=== PATIENT | female | born 1975 | race Caucasian/White ===

== ENCOUNTER 2017-02-27 17:50 | Emergency (ER) | payer OTHER ==
[~2017-02-27] VITALS: Ht 170.2 cm; Wt 61.2 kg
[~2017-02-27 17:50] MED LIST: ACETAMINOPHEN325 M1 PO; ALBUTEROL SULF8.5 GM INH; ALBUTEROL2.5 MG/0.5 INH; ALBUTEROL2.5 MG/3 M INH; ANUSOL-HC30 GM PR; ARIPIPRAZOL1 MG/1 ML PO; AZITHROMYCIN250 MG PO; BENADRYL A12.5 MG/5 PO; BENTYL20 MG PO; CARDURA1 MG PO; CHLORPROMAZINE10 MG PO; CIPROFLOXACIN500 MG PO; CLONAZEPAM1 MG PO; CLONAZEPAM2 MG PO; DILAUDID4 MG PO; DIPHENHYDRAMINE50 MG PO; DOXYCYCLINE MO100 MG PO; DULOXETINE HCL60 MG PO; ESCITALOPRA5 MG/5 ML PO; ESCITALOPRAM OX20 MG PO; FETZIMA80 MG; FLAGYL500 MG PO; FLOVENT DISKUS50 MCG INH; FLUCONAZOLE150 MG PO; FLUOXETINE20 MG/5 ML PO; GABAPENTIN100 MG PO; GUAIATUSSIN AC10 ML PO; GUAIFENESIN-CO118 ML PO; HYDROCODON-ACE1 EA11 PO; IBUPROFEN600 MG PO; IMODIUM MULTI-1 EACH PO; IPRAT-ALBUT 0.5-3 ML INH; KEFLEX500 MG PO; KETOPROFEN75 MG PO; LATUDA120 MG PO; LATUDA40 MG PO; LATUDA80 MG PO; LOPERAMIDE2 MG PO; MELOXICAM15 MG PO; METHOCARBAMOL500 MG PO; METRONIDAZOLE250 MG PO; MINIPRESS1 MG PO; MOBIC15 MG PO; MONISTAT 745 GM VAGINAL; NAPROXEN500 MG PO; NICOTINE PATCH1 EAC1 TD; NICOTINE PATCH1 EACH TD; NORCO 5-325 TA1 EACH PO; OMEPRAZOLE40 MG PO; OXYBUTYNIN CHLOR5 M1 PO; OXYCODON-ACETA1 EAC2 PO; OXYCODONE HCL5 MG PO; PENICILLIN V P500 MG; PENICILLIN V P500 MG PO; POTASSIUM CHLO10 MEQ PO; PRAZOSIN HCL5 MG PO; PREDNISONE20 MG PO; PROMETHAZI6.25 MG/5 PO; ROBAXIN500 MG PO; SEROQUEL100 MG PO; SUDAFED30 MG PO; TYLENOL EXTRA500 M1 PO; TYLENOL325 MG PO; VICODIN HP 10-1 EAC1 PO; XARELTO10 MG PO; ZITHROMAX250 MG PO; ZOFRAN4 MG PO
== END 2017-02-27 18:23 | disposition home or self-care (01) ==
LOC: ED 17:50
DX: S00.211A Abrasion of right eyelid and periocular area, initial encounter (principal); J45.909 Unspecified asthma, uncomplicated; K21.9 Gastro-esophageal reflux disease without esophagitis; F17.200 Nicotine dependence, unspecified, uncomplicated; J44.9 Chronic obstructive pulmonary disease, unspecified; Z86.14 Personal history of Methicillin resistant Staphylococcus aureus infection; Z90.710 Acquired absence of both cervix and uterus; Z98.890 Other specified postprocedural states; Z88.5 Allergy status to narcotic agent; Z79.899 Other long term (current) drug therapy; Z79.51 Long term (current) use of inhaled steroids; Z79.891 Long term (current) use of opiate analgesic; X58.XXXA Exposure to other specified factors, initial encounter
CPT/HCPCS: 99282

== ENCOUNTER 2017-03-24 12:24 | Emergency (ER) | payer OTHER ==
[~2017-03-24] VITALS: Ht 170.2 cm; Wt 59.0 kg
[2017-03-24] MEDS ORDERED: NAPROSYN500 MG PO (12:35)
[2017-03-24] MEDS ORDERED: OXYBUTYNIN CHLOR5 MG PO (12:35)
[2017-03-24] MEDS ORDERED: GABAPENTIN600 MG PO (12:36)
[2017-03-24] MEDS ORDERED: BACTRIM DS TAB1 EACH PO (12:48)
== END 2017-03-24 12:53 | disposition home or self-care (01) ==
LOC: ED 12:24
DX: L30.9 Dermatitis, unspecified (principal); J44.9 Chronic obstructive pulmonary disease, unspecified; F41.9 Anxiety disorder, unspecified; K21.9 Gastro-esophageal reflux disease without esophagitis; F17.200 Nicotine dependence, unspecified, uncomplicated; Z86.14 Personal history of Methicillin resistant Staphylococcus aureus infection; Z90.710 Acquired absence of both cervix and uterus; Z90.49 Acquired absence of other specified parts of digestive tract; Z88.5 Allergy status to narcotic agent; Z79.899 Other long term (current) drug therapy
CPT/HCPCS: 99283

== ENCOUNTER 2017-04-20 18:08 | Emergency (ER) | payer OTHER ==
[~2017-04-20] VITALS: Ht 170.2 cm; Wt 54.4 kg
[~2017-04-20 18:08] MED LIST changes: +BACTRIM DS TAB1 EACH PO; +GABAPENTIN600 MG PO; +NAPROSYN500 MG PO; +OXYBUTYNIN CHLOR5 MG PO
[2017-04-20] MEDS ORDERED: VENTOLIN HFA18 GM INH (18:20)
[2017-04-20] MEDS ORDERED: FLOVENT HFA12 G1 INH (18:20)
--- OUTSIDE RECORDS SUMMARY | 2017-04-20 18:31 | XMS | Clinical Summary ---
Demographics + + + | Address | [address] | | | [place] [address] | + + + | Home Phone | | + + + | Preferred Language | Unknown | + + + | Marital Status | Unknown | + + + | Jew Affiliation | Unknown | + + + | Race | Unknown | + + + | Ethnic Group | Unknown | + + + Author + + + | Author | [facility] | + + + | Organization | [facility] | + + + | Address | Unknown | + + + | Phone | Unavailable | + + + Care Team Providers + +------+ + | Care Hospital Aide Name | Role | Phone | + +------+ + PP | Unavailable | + +------+ + Source Comments MANOLO is fully live on both [facility] and [facility] InPatient.[facility] Allergies Not on File Current Medications Not on file Active Problems Not on file Social History + +-------+ +--------+------+ | Tobacco Use | Types | Packs/Day | Years | Date | | | | | Used | | + +-------+ +--------+------+ | Never Assessed | | | | | + +-------+ +--------+------+ + + + | Sex Assigned at | Date Recorded | | | | + + + | Not on file | | + + + Plan of Treatment + + + + + | Health Maintenance | Due Date | Last Done | Comments | + + + + + | INFLUENZA VACCINE | | | | | (FLU SHOT) | 7 | | | + + + + + Results Not on filefrom Last 3 Months"
[2017-04-20] MEDS ORDERED: DICLOFENAC SODI75 MG PO (18:52)
== END 2017-04-20 19:13 | disposition home or self-care (01) ==
LOC: ED 18:08
DX: M25.562 Pain in left knee (principal); J44.9 Chronic obstructive pulmonary disease, unspecified; F41.9 Anxiety disorder, unspecified; K21.9 Gastro-esophageal reflux disease without esophagitis; F17.200 Nicotine dependence, unspecified, uncomplicated; Z86.14 Personal history of Methicillin resistant Staphylococcus aureus infection; Z90.710 Acquired absence of both cervix and uterus; Z90.49 Acquired absence of other specified parts of digestive tract; Z88.5 Allergy status to narcotic agent; Z79.899 Other long term (current) drug therapy
CPT/HCPCS: 73560; 99283

== ENCOUNTER 2017-05-05 19:18 | Emergency (ER) | payer OTHER ==
[~2017-05-05] VITALS: Ht 175.3 cm; Wt 64.9 kg
--- OUTSIDE RECORDS SUMMARY | ~2017-05-05 | XMS | Clinical Summary ---
Demographics + + + | Address | [address] | | | [place] [address] | + + + | Home Phone | | + + + | Preferred Language | Unknown | + + + | Marital Status | Unknown | + + + | Baptist Affiliation | Unknown | + + + [...] Team Providers + +------+ + | Care Tuber Machine Operator Helper Name | Role | Phone | + +------+ + PP | Unavailable | + +------+ + Source Comments [facility] Allergies Not on File Current [...]
--- OUTSIDE RECORDS SUMMARY | ~2017-05-05 | XMS | Clinical Summary ---
Demographics + + + | Address | [address] | | | [place] [address] | + + + | Home Phone | | + + + | Preferred Language | Unknown | + + + | Marital Status | Unknown | + + + | Worship Affiliation | Unknown | + + + [...] Team Providers + +------+ + | Care Computer Technology Teacher Name | Role | Phone | + +------+ + PP | Unavailable | + +------+ + Source Comments [facility] In[facility] Allergies [...]
[~2017-05-05 19:18] MED LIST changes: +DICLOFENAC SODI75 MG PO; +FLOVENT HFA12 G1 INH; +VENTOLIN HFA18 GM INH
== END 2017-05-05 20:03 | disposition left against medical advice (07) ==
LOC: ED 19:18
DX: Z53.21 Procedure and treatment not carried out due to patient leaving prior to being seen by health care provider (principal)

== ENCOUNTER 2017-05-09 13:18 | Emergency (ER) | payer OTHER ==
[~2017-05-09] VITALS: Ht 175.3 cm; Wt 64.9 kg
[2017-05-09] MEDS ORDERED: LATUDA40 MG PO (13:28)
[2017-05-09] MEDS ORDERED: LEXAPRO10 MG PO (13:28)
[2017-05-09] MEDS ORDERED: VISTARIL50 MG PO (13:28)
== END 2017-05-09 13:37 | disposition home or self-care (01) ==
LOC: ED 13:18
DX: M54.5 Low back pain (principal); W19.XXXA Unspecified fall, initial encounter

== ENCOUNTER 2017-05-17 10:47 | Emergency (ER) | payer OTHER ==
[~2017-05-17] VITALS: Ht 175.3 cm; Wt 64.9 kg
[~2017-05-17 10:47] MED LIST changes: +LEXAPRO10 MG PO; +VISTARIL50 MG PO
[2017-05-17] MEDS ORDERED: NORCO 5-325 TA1 EACH PO (11:08)
[2017-05-17] MEDS ORDERED: AMOXICILLIN500 MG PO (11:08)
== END 2017-05-17 11:23 | disposition home or self-care (01) ==
LOC: ED 10:47
DX: K08.89 Other specified disorders of teeth and supporting structures (principal); J44.9 Chronic obstructive pulmonary disease, unspecified; F41.9 Anxiety disorder, unspecified; K21.9 Gastro-esophageal reflux disease without esophagitis; Z86.14 Personal history of Methicillin resistant Staphylococcus aureus infection; F17.200 Nicotine dependence, unspecified, uncomplicated; Z90.710 Acquired absence of both cervix and uterus; Z88.5 Allergy status to narcotic agent; Z79.899 Other long term (current) drug therapy
CPT/HCPCS: 99283

== ENCOUNTER 2017-05-25 21:11 | Emergency (ER) | payer OTHER ==
[~2017-05-25] VITALS: Ht 175.3 cm; Wt 64.9 kg
[~2017-05-25 21:11] MED LIST changes: +AMOXICILLIN500 MG PO
[2017-05-25] MEDS ORDERED: DITROPAN XL10 MG PO (21:28)
--- NOTE | 2017-05-28 08:04 | EKG ---
[facility] [address] [place] [address] Signed Normal sinus rhythm Possible Left atrial enlargement Borderline ECG No previous ECGs available Confirmed by ROBERT NIELSON MD ([id number]) on 05/28/2017 8:04:36 AM Electronically Signed By: ROBERT NIELSON MD 05/28/17 0804 PATIENT NAME: DALY SPICER Electrocardiogram DATE OF : 71 PHYSICIAN: ROBERT NIELSON MD REPORT #: [id number] REPORT IS CONFIDENTIAL AND NOT TO BE RELEASED WITHOUT AUTHORIZATION
== END 2017-05-26 01:58 | disposition home or self-care (01) ==
LOC: ED 21:11
DX: T43.592A Poisoning by other antipsychotics and neuroleptics, intentional self-harm, initial encounter (principal); Z90.710 Acquired absence of both cervix and uterus; F17.200 Nicotine dependence, unspecified, uncomplicated; Z88.5 Allergy status to narcotic agent
CPT/HCPCS: 36415; 80053; 80176; 81001; 84443; 84703; 85025; 93005; 93010; 96360; 96361; 99284; G0480; J7030

== ENCOUNTER 2017-07-06 17:44 | Emergency (ER) | payer OTHER ==
[~2017-07-06] VITALS: Ht 175.3 cm; Wt 64.9 kg
--- OUTSIDE RECORDS SUMMARY | ~2017-07-06 | XMS | Clinical Summary ---
Demographics + + + | Address | [address] | | | [place] [address] | + + + | Home Phone | | + + + | Preferred Language | Unknown | + + + | Marital Status | Unknown | + + + | Adventist Affiliation | Unknown | + + + | Race | Unknown | + + + | Ethnic Group | Unknown | + + + Author + + + | Author | [facility] | + + + | Organization | [facility] | + + + | Address | Unknown | + + + | Phone | Unavailable | + + + Care Team Providers + +------+ + | Care Safety Associate Name | Role | Phone | + +------+ + PP | Unavailable | + +------+ + Source Comments MANOLO is fully [facility] both [facility] and [facility] InPatient.[facility] Allergies Not on File Current Medications Not [...]
--- OUTSIDE RECORDS SUMMARY | ~2017-07-06 | XMS | Clinical Summary ---
Demographics + + + | Address | [address] | | | [place] [address] | + + + | Home Phone | | + + + | Preferred Language | Unknown | + + + | Marital Status | Unknown | + + + | Yazdanism Affiliation | Unknown | + + + [...] Team Providers + +------+ + | Care Stock Parts Fabricator Name | Role | Phone | + +------+ + PP | Unavailable | + +------+ + Source Comments [facility] and [facility] InPatient.[facility] Allergies Not on File Current [...]
[~2017-07-06 17:44] MED LIST changes: +DITROPAN XL10 MG PO
[2017-07-06] MEDS ORDERED: TRAZODONE HCL50 MG PO (17:56)
--- NOTE | 2017-07-07 21:22 | EKG ---
[facility] [address] [place] [address] Signed Normal sinus rhythm Nonspecific ST and T wave abnormality Abnormal ECG When compared with ECG of 25-MAY-2017 21:52, ST now depressed in Anterolateral leads T wave inversion now evident in Anterolateral leads Confirmed by ROBERT NIELSON MD ([id number]) on 07/07/2017 9:21:54 PM Electronically Signed By: ROBERT NIELSON MD 07/07/172121 PATIENT NAME: DALY SPICER Electrocardiogram DATE OF : 71 PHYSICIAN: ROBERT NIELSON MD REPORT #: [id number] REPORT IS CONFIDENTIAL AND NOT TO BE RELEASED WITHOUT AUTHORIZATION
[2017-10-30] MEDS ORDERED: CLONIDINE HCL0.1 MG PO (09:46)
[2017-10-30] MEDS ORDERED: PRAZOSIN HCL2 MG PO (09:47)
[2017-10-30] MEDS ORDERED: VITAMIN D250000 UNIT PO (09:48)
[2017-10-30] MEDS ORDERED: LAMICTAL25 MG PO (09:50)
[2017-10-30] MEDS ORDERED: DICLOFENAC SODI75 MG PO (09:50)
[2017-10-30] MEDS ORDERED: CHLORPROMAZINE50 MG PO (09:51)
[2017-10-30] MEDS ORDERED: CLONAZEPAM0.5 MG PO (09:52)
[2017-10-30] MEDS ORDERED: SUPER B COMPLE150 MG PO (09:53)
[2017-10-30] MEDS ORDERED: POTASSIUM99 M1 PO (09:53)
[2017-10-30] MEDS ORDERED: MULTIVITAMINS1 EAC8 PO (09:53)
[2017-10-30] MEDS ORDERED: FLOVENT DISKU100 MCG INH (10:11)
[2017-10-30] MEDS ORDERED: IPRAT-ALBUT 0.5-3 ML INH (10:24)
== END 2017-07-06 22:47 | disposition home or self-care (01) ==
LOC: ED 17:44
DX: T43.592A Poisoning by other antipsychotics and neuroleptics, intentional self-harm, initial encounter (principal); T43.212A Poisoning by selective serotonin and norepinephrine reuptake inhibitors, intentional self-harm, initial encounter; K21.9 Gastro-esophageal reflux disease without esophagitis; F41.9 Anxiety disorder, unspecified; J44.9 Chronic obstructive pulmonary disease, unspecified; F17.200 Nicotine dependence, unspecified, uncomplicated; Z90.710 Acquired absence of both cervix and uterus; Z98.890 Other specified postprocedural states; Z88.5 Allergy status to narcotic agent; Z79.899 Other long term (current) drug therapy
CPT/HCPCS: 80053; 80176; 81001; 83735; 84484; 85025; 93005; 93010; 96360; 96361; 99284; G0480; J7030

== ENCOUNTER 2017-08-22 23:46 | Emergency (ER) | payer OTHER ==
[~2017-08-22] VITALS: Ht 175.3 cm; Wt 72.6 kg
--- OUTSIDE RECORDS SUMMARY | ~2017-08-22 | XMS | Clinical Summary ---
Demographics + + + | Address | [address] | | | [place] [address] | + + + | Home Phone | | + + + | Preferred Language | Unknown | + + + | Marital Status | Unknown | + + + | Rastafari Affiliation | Unknown | + + + [...] Team Providers + +------+ + | Care Bath Tester Name | Role | Phone | + +------+ + PP | Unavailable | + +------+ + Source Comments [facility] InPatient.[facility] Allergies Not on File Current Medications [...]
--- OUTSIDE RECORDS SUMMARY | ~2017-08-22 | XMS | Clinical Summary ---
Demographics + + + | Address | [address] | | | [place] [address] | + + + | Home Phone | | + + + | Preferred Language | Unknown | + + + | Marital Status | Unknown | + + + | Anabaptism Affiliation | Unknown | + + + [...] Team Providers + +------+ + | Care Information Security Risk Analyst Name | Role | Phone | + +------+ + PP | Unavailable | + +------+ + Source Comments MANOL[facility] is [facility] both [facility] and [facility] InPatient.[facility] Allergies Not on File [...]
[~2017-08-22 23:46] MED LIST changes: +TRAZODONE HCL50 MG PO
[2017-08-23] MEDS ORDERED: TIZANIDINE HCL2 M1 PO (00:01)
[2017-10-30] MEDS ORDERED: CLONIDINE HCL0.1 MG PO (09:46)
[2017-10-30] MEDS ORDERED: PRAZOSIN HCL2 MG PO (09:47)
[2017-10-30] MEDS ORDERED: VITAMIN D250000 UNIT PO (09:48)
[2017-10-30] MEDS ORDERED: DICLOFENAC SODI75 MG PO (09:50)
[2017-10-30] MEDS ORDERED: LAMICTAL25 MG PO (09:50)
[2017-10-30] MEDS ORDERED: CHLORPROMAZINE50 MG PO (09:51)
[2017-10-30] MEDS ORDERED: CLONAZEPAM0.5 MG PO (09:52)
[2017-10-30] MEDS ORDERED: SUPER B COMPLE150 MG PO (09:53)
[2017-10-30] MEDS ORDERED: POTASSIUM99 M1 PO (09:53)
[2017-10-30] MEDS ORDERED: MULTIVITAMINS1 EAC8 PO (09:53)
[2017-10-30] MEDS ORDERED: FLOVENT DISKU100 MCG INH (10:11)
[2017-10-30] MEDS ORDERED: IPRAT-ALBUT 0.5-3 ML INH (10:24)
== END 2017-08-23 01:26 | disposition home or self-care (01) ==
LOC: ED 23:46
DX: S30.0XXA Contusion of lower back and pelvis, initial encounter (principal); S80.02XA Contusion of left knee, initial encounter; J44.9 Chronic obstructive pulmonary disease, unspecified; K21.9 Gastro-esophageal reflux disease without esophagitis; F41.9 Anxiety disorder, unspecified; Z86.14 Personal history of Methicillin resistant Staphylococcus aureus infection; Z88.5 Allergy status to narcotic agent; Z79.899 Other long term (current) drug therapy; Y04.2XXA Assault by strike against or bumped into by another person, initial encounter; Y92.009 Unspecified place in unspecified non-institutional (private) residence as the place of occurrence of the external cause
CPT/HCPCS: 72100; 73560; 81001; 99283

== ENCOUNTER 2017-09-26 09:30 | Emergency (ER) | payer OTHER ==
[~2017-09-26] VITALS: Ht 175.3 cm; Wt 72.6 kg
--- OUTSIDE RECORDS SUMMARY | ~2017-09-26 | XMS | Clinical Summary ---
Demographics + + + | Address | [address] | | | [place] [address] | + + + | Home Phone | | + + + | Preferred Language | Unknown | + + + | Marital Status | Unknown | + + + | Christian Affiliation | Unknown | + + + | Race | Unknown | + + + | Ethnic Group | Unknown | + + + Author + + + | Author | [facility] | + + + | Organization | [facility] | + + + | Address | Unknown | + + + | Phone | Unavailable | + + + Support + + +---------+ + | Name | Relationship | Address | Phone | + + +---------+ + | James Rodas | ECON | Unknown | | + + +---------+ + | Talisha Miranda | ECON | Unknown | | + + +---------+ + Care Team Providers + +------+ + | Care Epidemiology Intern Name | Role | Phone | + +------+ + | Juan Lucero MD | PP | Unavailable | + +------+ + Allergies + + + + + + | Active Allergy | Reactions | Severity | Noted | Comments | | | | | Date | | + + + + + + | Morphine | Anaphylaxis | High | 08/23/19 | | | | | | 16 | | + + + + + + | Tramadol | Hives | High | 08/23/19 | | | | | | 16 | | + + + + + + Current Medications + + +-------+---------+------+------+-------+ | Prescription | Sig. | Disp. | Refills | Star | End | Statu | | | | | | t | Date | s | | | | | | Date | | | + + +-------+---------+------+------+-------+ | albuterol | Inhale 2 puffs into | | | | | Activ | | (PROVENTIL | the lungs every 4 | | | | | e | | HFA;VENTOLIN HFA) | (four) hours as | | | | | | | 108 (90 BASE) | needed for Wheezing. | | | | | | | MCG/ACT inhaler | | | | | | | + + +-------+---------+------+------+-------+ | Fluticasone | Inhale 1 puff into | | | | | Activ | | Propionate, Inhal, | the lungs 2 (two) | | | | | e | | 100 MCG/BLIST AEPB | times daily. | | | | | | + + +-------+---------+------+------+-------+ | ARIPiprazole | Take 10 mg by mouth | | | | | Activ | | (ABILIFY) 10 MG | nightly. | | | | | e | | tablet | | | | | | | + + +-------+---------+------+------+-------+ | clonazePAM | Take 2 mg by mouth 3 | | | | | Activ | | (KLONOPIN) 2 MG | (three) times daily | | | | | e | | tablet | as needed for | | | | | | | | Anxiety. | | | | | | + + +-------+---------+------+------+-------+ | escitalopram | Take 20 mg by mouth | | | | | Activ | | (LEXAPRO) 20 MG | every evening. | | | | | e | | tablet | | | | | | | + + +-------+---------+------+------+-------+ | omeprazole | Take 40 mg by mouth | | | | | Activ | | (PRILOSEC) 40 MG | every morning before | | | | | e | | capsule | breakfast. | | | | | | + + +-------+---------+------+------+-------+ | methocarbamol | Take 500 mg by mouth | | | | | Activ | | (ROBAXIN) 500 MG | nightly. | | | | | e | | tablet | | | | | | | + + +-------+---------+------+------+-------+ | meloxicam (MOBIC) | Take 15 mg by mouth | | | | | Activ | | 15 MG tablet | daily. | | | | | e | + + +-------+---------+------+------+-------+ | prazosin | Take 5 mg by mouth | | | | | Activ | | (MINIPRESS) 5 MG | nightly. | | | | | e | | capsule | | | | | | | + + +-------+---------+------+------+-------+ | prazosin | Take 2 mg by mouth | | | | | Activ | | (MINIPRESS) 2 MG | nightly. | | | | | e | | capsule | | | | | | | + + +-------+---------+------+------+-------+ | potassium chloride | Take 10 mEq by mouth | | | | | Activ | | (K-DUR) 10 MEQ | daily. | | | | | e | | tablet | | | | | | | + + +-------+---------+------+------+-------+ | oxybutynin | Take 5 mg by mouth | | | | | Activ | | (DITROPAN-XL) 5 MG | every evening. | | | | | e | | 24 hr tablet | | | | | | | + + +-------+---------+------+------+-------+ | | Take 1 tablet by | | | | | Activ | | HYDROcodone-acetamin | mouth every 6 (six) | | | | | e | | ophen (NORCO) | hours as needed for | | | | | | | 7.5-325 MG per | Pain. | | | | | | | tablet | | | | | | | + + +-------+---------+------+------+-------+ Active Problems + + + | Problem | Noted Date | + + + | Precordial pain | 08/23/2015 | + + + + + | Last Assessment & Plan: Chest pain. 40yo WF, with | | chest discomfort, worsening over last several months. She states | | that she has just chest pain "most of that day and night", any | | type of activity including breathing increases her symptoms. She | | has chronic shortness of breath, she blames this on her asthma, | | COPD, smoking, but this also is worse with physical activity. | | She states that she wakes up quite diaphoretic, her heart | | pounding. Despite this, there is been no syncope. She has no | | prior history of coronary artery disease, myocardial infarction, | | congestive heart failure, congenital heart disease, rheumatic | | heart disease, or syncope. There is no history of diabetes, | | hypertension, or hyperlipidemia. No history of TIAs or strokes. | | She is unsure about her family history. Recently, abdominal | | surgeries. And unfortunately, she still smokes. A recent | | nuclear perfusion study is benign. Patient reassured that she | | does not have significant obstructive coronary disease. Smoking | | cessation strongly encouraged.Last Cath: naLast Echo: naLast | | Stress Test, 09/14/2015 ([facility]): Adenosine, images benign, | | LVEF 64%.ECG, 07/15/2015: NSR, 71bpm.Lab, 07/15/2015: Trop-T: | | <0.010, Liver enzymes NML, K: 4.0, BUN/Cr: 25/0.8, glu: 109 | | (non-fasting) WBC: 9.5, H/H: 12.9/37.5, | | plt: 279Lab, 08/30/2015: T Chol: 200, LDL-Chol: 108, HDL-Chol: 53, | | Tri | + + Family History + + +------+ + | Medical History | Relation | Name | Comments | + + +------+ + | High cholesterol | Father | | | + + +------+ + | Hypertension | Father | | | + + +------+ + + +------+ + + | Relation | Name | Status | Comments | + +------+ + + | Father | | Alive | HTN,Hyperlipidemia | + +------+ + + | Maternal Grandfather | | | accident | + +------+ + + | Maternal Grandmother | | Alive | unknown status | + +------+ + + | Mother | | Alive | healthy | + +------+ + + Social History + + + +--------+ + | Tobacco Use | Types | Packs/Day | Years | Date | | | | | Used | | + + + +--------+ + | Current Every Day | Cigarettes | 1 | | Started: 06/16/1985 | | Smoker | | | | | + + + +--------+ + + +------+---+---+ | Smokeless Tobacco: | Chew | | | | Former User | | | | + +------+---+---+ + + | Comments: 6 months | + + + + +---------+ + | Alcohol Use | Drinks/We | oz/Week | Comments | | | ek | | | + + +---------+ + | Yes | 0 | 0.0 | rarely jrey | | | Standard | | | | | drinks or | | | | | | | | | | equivalen | | | | | t | | | + + +---------+ + + + + | Sex Assigned at | Date Recorded | | | | + + + | Not on file | | + + + Last Filed Vital Signs + + + + | Vital Sign | Reading | Time Taken | + + + + | Blood Pressure | 92/60 | 09/25/2015 11:13 AM PDT | + + + + | Pulse | 62 | 09/25/2015 11:13 AM PDT | + + + + | Temperature | - | - | + + + + | Respiratory Rate | 17 | 09/25/2015 11:13 AM PDT | + + + + | Oxygen Saturation | 96% | 09/25/2015 11:13 AM PDT | + + + + | Inhaled Oxygen | - | - | | Concentration | | | + + + + | Weight | 77.2 kg (170 lb 1.6 | 09/25/2015 11:13 AM PDT | | | oz) | | + + + + | Height | 170.2 cm (5' 7") | 09/25/2015 11:13 AM PDT | + + + + | Body Mass Index | 26.64 | 09/25/2015 11:13 AM PDT | + + + + Plan of Treatment +--------+---------+ + + + | Date | Type | Specialty | Care Team | Description | +--------+---------+ + + + | 01/06/ | Office | | Charles Maradiaga, | | | 2017 | Visit | | MD [address] | | | | | | [place], | | | | | | [place] [address] | | | | | | [phone] | | | | | | | | +--------+---------+ + + + + + + + + | Health Maintenance | Due Date | Last Done | Comments | + + + + + | Vaccine: | | | | | Dtap/Tdap/Td (1 - | 2 | | | | Tdap) | | | | + + + + + | Vaccine: | | | | | Pneumococcal 19-64 | 2 | | | | (PPSV23 only) Medium | | | | | Risk (1 of 1 - | | | | | PPSV23) | | | | + + + + + | Cervical Cancer | | | | | Screening (Pap) | 4 | | | + + + + + | Vaccine: Influenza | | | | | (Season Ended) | 8 | | | + + + + + Results Not on filefrom Last 3 Months Insurance + +--------+ +------+-------+ + | Payer | Benefi | Subscriber | Type | Phone | Address | | | t Plan | ID | | | | | | / | | | | | | | Group | | | | | + +--------+ +------+-------+ + | MEDICAID | KUSHER | xxxxxxxx | | | [address] | | | N | | | | [place] | | | [place] | | | | [phone] | | | FIELD STAFF MANAGER | | | | | + +--------+ +------+-------+ + + +--------+ +--------+ + + | Guarantor Name | Accoun | Relation to | Date | Phone | Billing Address | | | t Type | Patient | of | | | | | | | | | | + +--------+ +--------+ + + | DALY SPICER | Person | Self | [birth year] | Home: | [address] | | | al/Fam | | 1975 | [phone] | [place] [address] | | | erik | | | [phone] | | + +--------+ +--------+ + +
--- OUTSIDE RECORDS SUMMARY | ~2017-09-26 | XMS | Clinical Summary ---
Demographics + + + | Address | [address] | | | [place] [address] | + + + | Home Phone | | + + + | Preferred Language | Unknown | + + + | Marital Status | Unknown | + + + | Protestant Affiliation | Unknown | + + + [...] Team Providers + +------+ + | Care Rawhide Trimmer Name | Role | Phone | + +------+ + PP | Unavailable | + +------+ + Source Comments MANOLO is fully [facility] both [facility] and [facility] InPatient.[facility]placed By [facility] Allergies Not on File Current Medications Not [...] | | | | (FLU SHOT) | 8 | | | + + + + + Results Not on filefrom Last 3 Months"
--- OUTSIDE RECORDS SUMMARY | ~2017-09-26 | XMS | Clinical Summary ---
Demographics + + + | Address | [address] | | | [place] [address] | + + + | Home Phone | | + + + | Preferred Language | Unknown | + + + | Marital Status | Unknown | + + + | Nondenominational Affiliation | Unknown | + + + | Race | Unknown | + + + | Ethnic Group | Unknown | + + + Author + + + | Author | [facility] | + + + | Organization | [facility] | + + + | Address [...] Team Providers + +------+ + | Care Carpenter Supervisor Wooden Ship Name | Role | Phone | + [...] | | | | | | [place] [address] | | | | | | [phone] | | | | | | | [...] | | [place] | | | | [phone] | | | CUSTOMER SUPPORT AGENT | | | | | + +--------+ [...] Self | [birth year] | Home: | [address] | | | al/Fam | | 1975 | [phone] | [place] [address] | | | erik | | | [phone] | | + +--------+ +--------+ + +
--- OUTSIDE RECORDS SUMMARY | ~2017-09-26 | XMS | Clinical Summary ---
Demographics + + + | Address | [address] | | | [address] | | | [place] [address] | + + + | Home Phone | | + + + | Preferred Language | Unknown | + + + | Marital Status | | + + + | Scientology Affiliation | 1013 | + + + | Race | Unknown | + + + | Ethnic Group | Unknown | + + + Author + + + | Author | [facility] | | | and [place] | + + + | Organization | [facility] | | | and [place] | + + + | Address | Unknown | + + + | Phone | Unavailable | + + + Support + + + + + | Name | Relationship | Address | Phone | + + + + + | Codi Guajardo | ECON | [address] | | | | | [address] [facility] | | | | | [address] | | + + + + + Care Team Providers + +------+ + | Care Special Education Tutor Name | Role | Phone | + +------+ + PP | Unavailable | + +------+ + Allergies + + + +--------+ + | Active Allergy | Reactions | Severity | Noted | Comments | | | | | Date | | + + + +--------+ + | Hydrocodone | | | | | + + + +--------+ + | Morphine Sulfate | | | | | + + + +--------+ + | Tramadol | | | | | + + [...] puffs two | | | 02/14 | | Activ | | (FLOVENT HFA) 110 | times a day | | | 09/02 | | e | | mcg/puff inhaler | | | | 12 | | | + + +-------+---------+------+------+-------+ | omeprazole | Take 20 mg by mouth | | | 02/14 | | Activ | | (PRILOSEC) 20 mg | Daily. | | | 09/02 | | e | | capsule | | | | 12 | | | + + +-------+---------+------+------+-------+ | cyclobenzaprine | Take 10 mg by mouth | | | 02/14 | | Activ | | (FLEXERIL) 10 mg | nightly. | | | 09/02 | | e | | tablet | | | | 12 | | | + + +-------+---------+------+------+-------+ | naproxen | Take 500 mg by mouth | | | 02/14 | | Activ | | (NAPROSYN) 500 mg | 2 times daily. | | | 09/02 | | e | | tablet | | | | 12 | | | + + +-------+---------+------+------+-------+ | GABAPENTIN PO | TABS 800 mg 1 tablet | | | 02/14 | | Activ | | | by mouth three | | | 09/02 | | e | | | daily | | | 12 | | | + + +-------+---------+------+------+-------+ | buPROPion | 1 tablet by mouth in | | | 09/1 | | Activ | | (WELLBUTRIN XL) 300 | the AM and 150 mg | | | 3/20 | | e | | mg 24 hr tablet | in the PM | | | 12 | | | + + +-------+---------+------+------+-------+ | ziprasidone | 2 tablets by mouth | | | 09 | | Activ | | (GEODON) 60 MG | at bedtime | | | 3/20 | | e | | capsule | | | | 12 | | | + + +-------+---------+------+------+-------+ | CLONAZEPAM PO | TABS 2 tablets at | | | 09/1 | | Activ | | | bedtime and up to 2 | | | 3/20 | | e | | | tablets daily as | | | 12 | | | | | needed | | | | | | + + +-------+---------+------+------+-------+ | clonidine | Take 0.2 mg by mouth | | | 09/1 | | Activ | | (CATAPRES) 0.2 MG | nightly. | | | 3/20 | | e | | tablet | | | | 12 | | | [...] | | | + + +-------+---------+------+------+-------+ | Propoxyphene | TABS as needed for | | | 09/2 | | Activ | | N-Acetaminophen | pain | | | 02/02 | | e | | (DARVOCET-N 100 PO) | | | | 10 | | | + + +-------+---------+------+------+-------+ | PARoxetine (PAXIL) | Take 20 mg by mouth | | | 04/16 | | Activ | | 20 mg tablet | 2 times daily. | | | 12/03 | | e | | | | | | 10 | | | + + +-------+---------+------+------+-------+ Active Problems + + + | Problem | Noted Date | + + + | CHEST PAIN, PLEURITIC | | + + + | ASTHMA, EXTRINSIC | | + + + | ABNORMAL CHEST XRAY | | + + + | DYSPNEA ON EXERTION | | + + + | ACUTE KIDNEY FAILURE UNSPECIFIED | | + + + + + | Overview: ICD-10 Record update | + + Social History + +-------+ +--------+------+ [...] + + + | Blood Pressure | 105/60 | 05/15/2011 0000 PST | + + + + | Pulse | - | - | + + + + | Temperature | - | - | + + + + | Respiratory Rate | - | - | + + + + | Oxygen Saturation | - | - | + + + + | Inhaled Oxygen | - | - | | Concentration | | | + + + + | Weight | 83.5 kg (184 lb) | 05/15/2011 0000 PST | + + + + | Height | 170.2 cm (5' 7") | 05/15/2011 0000 PST | + + + + | Body Mass Index | 28.82 | 05/15/2011 0000 PST | + + + + Plan of [...] 19-64 | 2 | | | | Highest Risk (1 of 3 | | | | | - PCV13) | | | | + + + + + | CERVICAL CANCER | | | | | SCREENING (PAP EVERY | 4 | | | | 3 YEARS 21-64 ) | | | | + + + + + | Vaccine: Influenza | | | | | (Season Ended) | 8 | | | + + + + + Results Not on filefrom Last 3 Months
--- OUTSIDE RECORDS SUMMARY | ~2017-09-26 | XMS | Clinical Summary ---
Demographics + + + | Address | [address] | | | [address] | | | [place] [address] | + + + | Home Phone | | + + + | Preferred Language | Unknown | + + + | Marital Status | | + + + | Evangelical Affiliation | 1013 | + + + | Race | Unknown | + + + | Ethnic Group | Unknown | + + + Author + + + | Author | [facility] | | | and [place] | + + + | Organization | [facility] | | | and [place] | + + + | Address | Unknown | + + + | Phone | Unavailable | + + + Support + + + + + | Name | Relationship | Address | Phone | + + + + + | Codi Guajardo | ECON | [address] | | | | | [address] [facility] | | | | | [address] | | + + + + + Care Team Providers + +------+ + | Care Liquefier Name | Role | Phone | + [...]
--- OUTSIDE RECORDS SUMMARY | ~2017-09-26 | XMS | Clinical Summary ---
Demographics + + + | Address | [address] | | | [place] [address] | + + + | Home Phone | | + + + | Preferred Language | Unknown | + + + | Marital Status | Unknown | + + + | Latter-Day Affiliation | Unknown | + + + [...] Team Providers + +------+ + | Care Thread Drawer Name | Role | Phone | + +------+ + PP | Unavailable | + +------+ + Source Comments [facility] InPatient.[facility] Allergies Not on File Current Medications Not [...]
[~2017-09-26 09:30] MED LIST changes: +TIZANIDINE HCL2 M1 PO
[2017-09-26] MEDS ORDERED: DEPAKOTE500 MG PO (10:26)
[2017-09-26] MEDS ORDERED: ANUSOL-HC25 MG PR (10:35)
[2017-10-30] MEDS ORDERED: CLONIDINE HCL0.1 MG PO (09:46)
[2017-10-30] MEDS ORDERED: PRAZOSIN HCL2 MG PO (09:47)
[2017-10-30] MEDS ORDERED: VITAMIN D250000 UNIT PO (09:48)
[2017-10-30] MEDS ORDERED: LAMICTAL25 MG PO (09:50)
[2017-10-30] MEDS ORDERED: DICLOFENAC SODI75 MG PO (09:50)
[2017-10-30] MEDS ORDERED: CHLORPROMAZINE50 MG PO (09:51)
[2017-10-30] MEDS ORDERED: CLONAZEPAM0.5 MG PO (09:52)
[2017-10-30] MEDS ORDERED: POTASSIUM99 M1 PO (09:53)
[2017-10-30] MEDS ORDERED: MULTIVITAMINS1 EAC8 PO (09:53)
[2017-10-30] MEDS ORDERED: SUPER B COMPLE150 MG PO (09:53)
[2017-10-30] MEDS ORDERED: FLOVENT DISKU100 MCG INH (10:11)
[2017-10-30] MEDS ORDERED: IPRAT-ALBUT 0.5-3 ML INH (10:24)
== END 2017-09-26 11:06 | disposition home or self-care (01) ==
LOC: ED 09:30
DX: K64.9 Unspecified hemorrhoids (principal); K21.9 Gastro-esophageal reflux disease without esophagitis; F41.9 Anxiety disorder, unspecified; Z88.5 Allergy status to narcotic agent; Z79.899 Other long term (current) drug therapy
CPT/HCPCS: 36415; 85025; 99283

== ENCOUNTER 2017-11-05 06:30 | Day surgery (SDC) | payer OTHER ==
[~2017-11-05] VITALS: Ht 175.3 cm; Wt 78.0 kg
[~2017-11-05 06:30] MED LIST changes: +ANUSOL-HC25 MG PR; +CHLORPROMAZINE50 MG PO; +CLONAZEPAM0.5 MG PO; +CLONIDINE HCL0.1 MG PO; +DEPAKOTE500 MG PO; +FLOVENT DISKU100 MCG INH; +LAMICTAL25 MG PO; +MULTIVITAMINS1 EAC8 PO; +POTASSIUM99 M1 PO; +PRAZOSIN HCL2 MG PO; +SUPER B COMPLE150 MG PO; +VITAMIN D250000 UNIT PO
--- NOTE | 2017-11-05 09:44 | NUR ---
11/05/17 0944 Steffanie Mc 0936 PT ARRIVED IN PACU WIDE AWAKE TALKING TO STAFF. ABD SOFT.
--- NOTE | 2017-11-05 10:36 | NUR ---
PT RATHER ANXIOUS REGARDING THE SCOPE SCHEDULED FOR TODAY. FIRST SCOPE FOR PT, WORKED TO HELP HER RELAX-KNOWING WHAT TO EXPECT. SHE SEEMED TO CALM SOME, PT REQUESTED PRAYER. WILL FOLLOW NEEDED
--- NOTE | 2017-11-05 16:43 | OR ---
[facility] [address], [place] [address] Signed DATE OF OPERATION: 11/05/2017 SURGEON: Hunter Maldonado MD PREOPERATIVE DIAGNOSES: 1. Rectal bleeding. 2. External anal hemorrhoid in the anterior midline. POSTOPERATIVE DIAGNOSIS: Small anterior midline external hemorrhoid. PROCEDURE: Colonoscopy without biopsy. ESTIMATED BLOOD LOSS: None. INDICATIONS: Daly is a 42-year-old female who was having trouble with some rectal bleeding and an external hemorrhoid in the anterior midline. Her primary care provider asked her to see me with respect to the above. She gives no family history of colon cancer or polyps or inflammatory bowel disease. She said the rectal bleeding has stopped. I had given her a pamphlet in the office on colonoscopy. We looked at that together along with the risks including, but not limited to gas bloating, crampy abdominal pain, bleeding, perforation requiring surgery and missed diagnosis. We also discussed the need for IV conscious sedation. Daly requires daily, clonazepam as well as hydrocodone and Seroquel. We had to use an anesthesia provider previously when we did her upper endoscopy. Consequently, we decided to have an anesthesia provider available to us again on this occasion for infusion of propofol as well as airway control. She had expressed understanding and wished to proceed. PROCEDURE NOTE: Daly was taken into our endoscopy suite and placed in the left lateral decubitus position. She was given IV propofol per our nurse health and wellness sales consultant. In fact, Daly took quite a bit of propofol. Once she was fully sedated, a digital rectal exam was performed. It looked like she had some scar tissue around the anus, although I do not specifically recall her having any hemorrhoid surgery. She does have a small anterior midline external hemorrhoid. Again, the sphincter tone is moderate. After this, the adult colonoscope was introduced and advanced all around into the cecum under direct visualization of camera with some difficulty. We had used some abdominal compression Electronically Signed By: HUNTER MALDONADO MD 11/05/17 1643 PATIENT NAME: DALY SPICER OPERATIVE REPORT DATE OF : 71 REPORT #: [id number] PHYSICIAN: HUNTER MALDONADO MD PCP: MAE SILVA REPORT IS CONFIDENTIAL AND NOT TO BE RELEASED WITHOUT AUTHORIZATION [facility] [address], [place] [address] Signed and an extra propofol in order to get the scope to advance. Her prep was a little less than moderate. Many areas I was able to suction out, but there was still particulate stool matter and areas that I could not get through the scope. The scope was then slowly withdrawn. We saw no pathology throughout the entire colon or rectum. Upon retroflexion of the scope, there was no additional pathology noted above the anal canal. After this, the gas was suctioned out. The colonoscope removed. Daly tolerated the procedure quite well. RECOMMENDATIONS: Daly can follow up in 10 years for repeat colonoscopy. If she continues to have rectal bleeding, we could always talk more about her hemorrhoids, although with her moderate sphincter tone, she needs to be very careful with any hemorrhoid surgery. Hunter Maldonado MD ALB/MODL /[id number] cc: DB Kim MD Copies: MAE SILVA ANDREW L MD ~ Electronically Signed By: HUNTER MALDONADO MD 11/05/17 1643 PATIENT NAME: DALY SPICER OPERATIVE REPORT DATE OF : 71 REPORT #: [id number] PHYSICIAN: HUNTER MALDONADO MD PCP: MAE SILVA REPORT IS CONFIDENTIAL AND NOT TO BE RELEASED WITHOUT AUTHORIZATION
== END 2017-11-05 10:01 | disposition home or self-care (01) ==
LOC: OPS 06:30 → DS 06:30 → OPS 08:00
PROVIDERS: Colon & Rectal Surgery
PROC: 0DJD8ZZ Inspection of Lower Intestinal Tract, Via Natural or Artificial Opening Endoscopic (ICD-10-PCS; principal; 2017-11-05 08:00)
DX: K64.4 Residual hemorrhoidal skin tags (principal); I25.10 Atherosclerotic heart disease of native coronary artery without angina pectoris; J44.9 Chronic obstructive pulmonary disease, unspecified; K21.9 Gastro-esophageal reflux disease without esophagitis; K44.9 Diaphragmatic hernia without obstruction or gangrene; M17.12 Unilateral primary osteoarthritis, left knee; M19.041 Primary osteoarthritis, right hand; M19.042 Primary osteoarthritis, left hand; F32.9 Major depressive disorder, single episode, unspecified; J32.9 Chronic sinusitis, unspecified; F17.210 Nicotine dependence, cigarettes, uncomplicated; F43.10 Post-traumatic stress disorder, unspecified; Z88.5 Allergy status to narcotic agent; Z88.8 Allergy status to other drugs, medicaments and biological substances; Z79.1 Long term (current) use of non-steroidal anti-inflammatories (NSAID); Z79.899 Other long term (current) drug therapy; Z79.51 Long term (current) use of inhaled steroids
CPT/HCPCS: J2704; J7120

== ENCOUNTER 2018-08-29 10:53 | Emergency (ER) | payer OTHER ==
[~2018-08-29] VITALS: Ht 175.3 cm; Wt 82.5 kg
--- OUTSIDE RECORDS SUMMARY | ~2018-08-29 | XMS | Clinical Summary ---
Demographics + + + | Address | [address] | | | [place] [address] | + + + | Home Phone | | + + + | Preferred Language | Unknown | + + + | Marital Status | Unknown | + + + | Yarsani Affiliation | Unknown | + + + | Race | Unknown | + + + | Ethnic Group | Unknown | + + + Author + + + | Author | [facility] [employer] [facility] | + + + | Organization | [facility] [employer] [facility] | + + + | Address [...] Team Providers + +------+ + | Care Die Storage Worker Name | Role | Phone | + +------+ + | [facility] [place] [facility] | PP | | | Care [...] | 03/05 | | e | | [id number] units capsule | | | | 18 [...] Vaccine: Influenza | | | | | (#1) | 8 | | | + + [...] +------+-------+ + | MEDICAID | [place] | [id number] | | | [address] | | | N | | | | [place], [place] | | | [place] | | | | [address] | | | PARCEL CARRIER | | | | | + +--------+ [...] | 1975 | [phone] | [place] [address] | | | erik | | | [phone] | | + +--------+ +--------+ + +
--- OUTSIDE RECORDS SUMMARY | ~2018-08-29 | XMS | Encounter Summary ---
Demographics + + + | Address | [address] | | | [place] [address] | + + + | Home Phone | | + + + | Preferred Language | Unknown | + + + | Marital Status | Unknown | + + + | Orthodoxy Affiliation | 1013 | + + + | Race | Unknown | + + + | Ethnic Group | Unknown | + + + Author + + + | Author | [facility] | | | and [place] | + + + | Organization | [facility] | | | and [place] | + + + | Address | Unknown | + + + | Phone | Unavailable | + + + Support + + + + + | Name | Relationship | Address | Phone | + + + + + | Codi Guajardo | ECON | [address] | | | | | [address] | | | | | [address] | | + + + + + Care Team Providers + +------+ + | Care Infrastructure Manager Name | Role | Phone | + +------+ + | Son Salamanca | PCP | | + +------+ + Reason for Visit + + + | Reason | Comments | + + + | Follow-up | | + + + | Diarrhea | | + + + | LABS | | + + + Evaluate & Treat (Routine) + +--------+ + + + + | Status | Reason | Specialty | Diagnoses / | Referred By | Referred To | | | | | Procedures | Contact | Contact | + +--------+ + + + + | Authorized | | Gastroenterol | Diagnoses | Cheikh, | Rhona, | | | | ogy | Full | DB Cline | Noam Conner, | | | | | incontinence | [address] | MD [address] | | | | | of feces [address] | [address] | | | | | weeks | [address] | [place], | | | | | follow up/ | [place], | [place] [address] | | | | | Full | [place] [address] | Phone: | | | | | incontinence | Phone: | [phone] | | | | | of feces | [phone] | Fax: | | | | | Other | Fax: | [phone] | | | | | specified | [phone] | | | | | | diseases of | | | | | | | anus and | | | | | | | rectum/self/ | | | | | | | Moda/Cheikh | | | | | | | / Patient | | | | | | | will get | | | | | | | updated | | | | | | | referral | | | | | | | since it | | | | | | | on | | | | | | | 08/26 | | | | | | | Procedures | | | | | | | OFFICE VISIT | | | | | | | REGULAR | | | + +--------+ + + + + Encounter Details +--------+---------+ + + + | Date | Type | Department | Care Team | Description | +--------+---------+ + + + | 08/27/ | Office | [facility] | Noam Melgoza | Full incontinence of | | 2019 | Visit | GASTROENTEROLOGY | MD [address] | feces (Primary Dx); | | | | [address] [place] | [address] [place] | Lactose | | | | [address], [place] | [place] [address] | intolerance; | | | | [address] | [phone] | Diarrhea, | | | | [phone] | | unspecified type; | | | | | | Constipation, | | | | | | unspecified | | | | | | constipation type | +--------+---------+ + + + Social History + +-------+ +--------+ + | Tobacco Use | Types | Packs/Day | Years | Date | | | | | Used | | + +-------+ +--------+ + | Current Every Day | | 1 | 32 | Started: 1985 | | Smoker | | | | | + +-------+ +--------+ + + +---+---+---+ | Smokeless Tobacco: | | | | | Never Used | | | | + +---+---+---+ + + | Comments: Down to 3/4 PPD. Is slowly tapering down. | + + + + +---------+ + | Alcohol Use | Drinks/We | oz/Week | Comments | | | ek | | | + + +---------+ + | Yes | 18 Cans | 10.8 | 2-3 times per week. 6 pack per time | | | of beer | | | + + +---------+ + + + + | Sex Assigned at | Date Recorded | | | | + + + | Not on file | | + + + as of this encounter Last Filed Vital Signs + + + + | Vital Sign | Reading | Time Taken | + + + + | Blood Pressure | 82/62 | 08/27/2018 1448 PDT | + + + + | Pulse | 64 | 08/27/20181447 PDT | + + + + | Temperature | 37.3 C (99.1 F) | 08/27/20181447 PDT | + + + + | Respiratory Rate | 14 | 08/27/20181447 PDT | + + + + | Oxygen Saturation | 99% | 08/27/20181447 PDT | + + + + | Inhaled Oxygen | - | - | | Concentration | | | + + + + | Weight | 84.3 kg (185 lb 13.6 | 08/27/20181447 PDT | | | oz) | | + + + + | Height | 175.3 cm (5' 9") | 08/27/2018 1448 PDT | + + + + | Body Mass Index | 27.44 | 08/27/2018 1448 PDT | + + + + in this encounter Progress Notes Noam Melgoza MD - 08/27/2018 1500 PDTFormatting of this note may be different from the original. Gastroenterology Clinic Progress Note Date of Office Visit: 08/27/18 Primary Care Physician: DB Marcano Chief Complaint Follow-up; Diarrhea; and LABS History of Present Illness Serenity Demarco is a 43 y.o. female who returns to the clinic for diarrhea with fecal i ncontinence. Interval history: Has cut out dairy. Notes that she now has constipation for 3 days, then will have blow out diarrhea, describing liquid and solid stools simultaneously. Fecal incontinence much improve d. Not using imodium. Reports that she is drinking enough water. Reviewed her labs today. TTG IGa negative, TSH WNL. Stool studies being faxed over Review of Systems A 10 point review of systems was conducted with the patient, pertinent positives and negati ves per HPI. Problem List Patient Active Problem List Diagnosis CHEST PAIN, PLEURITIC ASTHMA, EXTRINSIC ABNORMAL CHEST XRAY DYSPNEA ON EXERTION ACUTE KIDNEY FAILURE UNSPECIFIED Chronic obstructive pulmonary disease Depression Gastroparesis GERD (gastroesophageal reflux disease) Precordial pain Tobacco dependence Diarrhea Ischiorectal abscess Nausea Simple chronic bronchitis Past Medical History Past Medical History: Diagnosis Date Acute insomnia Anxiety Asthma 2008 Bipolar 1 disorder ([facility]) COPD (chronic obstructive pulmonary disease) ([facility]) 2008 Decreased anal sphincter tone Degenerative disc disease, lumbar Diarrhea Fecal incontinence GERD (gastroesophageal reflux disease) Hemorrhoid Instability of right knee joint Internal derangement of knee Left knee pain Low back pain Right knee pain Right wrist injury Substance abuse ([facility]) Urinary incontinence Past Surgical History Past Surgical History: Procedure Laterality Date ABCESS DRAINAGE 01/14/2016 I&D rectal abscess. Discharge Diagnoses: Significant advanced left ischiorectal fosse absc ess status post incision and drainage. Hypertension. Hypokalemia uncertain etiology (resolve d). History of methamphetamine addiction. Hypertension. Gastroesophageal reflux. ~Ubaldo ryan MD [facility] ANTERIOR CRUCIATE LIGAMENT REPAIR Left 2016 APPENDECTOMY EYE SURGERY HERNIA REPAIR HYSTERECTOMY 1999 Retained ovaries Allergies Allergies Allergen Reactions Tramadol Other (See Comments),Itching Reaction: Unknown Morphine Sulfate Other (See Comments) Turned blue Intolerance No active intolerances/contraindications Medications Current Outpatient Prescriptions on File Prior to Visit Medication Sig Dispense Refill acetaminophen (TYLENOL) 500 mg tablet Take 500 mg by mouth every 6 hours as needed. albuterol (VENTOLIN HFA) 90 mcg/puff inhaler 2 puffs by mouth every 4 hours as needed f or shortness of breath albuterol-ipratropium 2.5-0.5 mg/3 mL SOLN Take 3 mLs by nebulization every 4 hours as needed for Wheezing or Shortness of Breath. benzonatate (TESSALON) 100 mg capsule buPROPion (WELLBUTRIN XL) 300 mg 24 hr tablet 1 tablet by mouth in the AM and 150 mg in the PM clonazePAM (KLONOPIN) 0.5 mg tablet ergocalciferol (VITAMIN D-2) 50,000 units capsule Take 50,000 Units by mouth every 7 da ys. escitalopram (LEXAPRO) 20 mg tablet Take 20 mg by mouth every evening. fluticasone (FLOVENT HFA) 110 mcg/puff inhaler Inhale 1 puff into the lungs 2 times migue ly. gabapentin (NEURONTIN) 600 MG tablet Take 600 mg by mouth 2 times daily. hydrocortisone 1% ointment Apply 1 Application topically 2 times daily. loperamide (IMODIUM) 2 mg capsule lurasidone (LATUDA) 120 mg tablet Take 120 mg by mouth daily (with breakfast). Multiple Vitamins-Minerals (MULTIVITAMIN WITH MINERALS) tablet Take 1 tablet by mouth D aily. omeprazole (PRILOSEC) 40 MG capsule potassium 99 mg tablet Take 99 mg by mouth Daily. tiZANidine (ZANAFLEX) 4 mg tablet Take 4 mg by mouth 3 times daily as needed. trospium 20 MG tablet No current facility-administered medications on file prior to visit. Physical Exam Vitals:BP (!) 82/62 | Pulse 64 | Temp 37.3 C (99.1 F) (Temporal) | Resp 14 | Ht 1.7 53 m (5' 9") | Wt 84.3 kg (185 lb 13.6 oz) | SpO2 99% | BMI 27.44 kg/m General: This is a well-developed,well-nurished female in no apparent distress, alert and o riented x 3. Head: Reveals normocephalic, atraumatic Eyes: Sclera anicteric, normal conjunctiva Mouth: Oropharynx is clear without obstruction. No oral lesion. Abdomen: Soft, nontender, non-distended, without masses or organmegaly. Normoactive bowel sounds. Labs 08/19/18 TTG IgA >0.06, TSH 3.62 Imaging none Assessment and Plan This is a 43-year-old woman who follows up for diarrhea with fecal incontinence. She has h ad significant improvement in the diarrhea since going dairy free and is now actually having constipation with what sounds like overflow diarrhea. Fecal incontinence has improved significantly. TSH and TTG IgA were normal. Awaiting stool studies from outside lab Overall I suspect that she has lactose tolerance and would benefit from remaining on a dair y free diet. Today I also recommended starting Metamucil one scoop daily for her constipation with overf low diarrhea. If this is ineffective she could increase to 2 scoops. If that is ineffectiv e and she could change to MiraLAX. She may follow up when necessary. ICD-10-CM ICD-9-CM 1. Full incontinence of feces R15.9 787.60 2. Lactose intolerance E73.9 271.3 3. Diarrhea, unspecified type R19.7 787.91 4. Constipation, unspecified constipation type K59.00 564.00 Follow up: No Follow-up on file. CC: DB Marcano [address] [facility] [address] [place] [address] Portions of this chart may have been created with [employer] voice recognition software. Occasi onal wrong-word or sound-alike substitutions may have occurred due to the inherent benitez itations of voice recognition software. Please read the chart carefully and recognize, using context, where these substitutions have occurredin this encounter Plan of Treatment +--------+ + + + + | Date | Type | Specialty | Care Team | Description | +--------+ + + + + | 10/06/ | Appointment | Pulmonology | Cameron Rodriguez, | | | 2018 | | | MD Bri Le | | | | | | [place], [place] | | | | | | [place] | | | | | | [phone] | | | | | | | | +--------+ + + + + | 10/06/ | Office | Pulmonology | Cameron Rodriguez, | | | 2018 | Visit | | MD Bri Le | | | | | | [place] | | | | | | [place] | | | | | | [phone] | | | | | | | | +--------+ + + + + as of this encounter Visit Diagnoses + + | Diagnosis | + + | Full incontinence of feces - Primary | + + | Lactose intolerance | + + | Intestinal disaccharidase deficiencies and disaccharide malabsorption | + + | Diarrhea, unspecified type | + + | Constipation, unspecified constipation type | + +
--- OUTSIDE RECORDS SUMMARY | ~2018-08-29 | XMS | Encounter Summary ---
Demographics + + + | Address | [address] | | | [place] [address] | + + + | Home Phone | | + + + | Preferred Language | Unknown | + + + | Marital Status | Unknown | + + + | Anabaptism Affiliation | 1013 | + + + | Race | Unknown | + + + | Ethnic Group | Unknown | + + + Author + + + | Author | [facility] | | | and [place] | + + + | Organization | [facility] | | | and [place] | + + + | Address | Unknown | + + + | Phone | Unavailable | + + + Support + + + + + | Name | Relationship | Address | Phone | + + + + + | Codi Guajardo | ECON | [address] | | | | | [address] [place] | | | | | [address] | | + + + + + Care Team Providers + +------+ + | Care In Tube Conversion Technician Name | Role | Phone | + +------+ + | Son Salamanca | PCP | | + +------+ + Reason for Visit +--------+ + | Reason | Comments | +--------+ + | LABS | | +--------+ + Encounter Details +--------+ + + + + | Date | Type | Department | Care Team | Description | +--------+ + + + + | 08/10/ | Telephone | [facility] | Noam Melgoza | LABS | | 2019 | | GASTROENTEROLOGY | MD [address] | | | | | [address] [place] | [address] [place] | | | | | [address] [place], [place] | [place] [address] | | | | | [address] | [phone] | | | | | [phone] | | | +--------+ + + + + Social History + +-------+ +--------+------+ | Tobacco Use | Types | Packs/Day | Years | Date | | | | | Used | | + +-------+ +--------+------+ | Current Every Day | | 0.75 | | | | Smoker | | | | | + +-------+ +--------+------+ + +---+---+---+ | Smokeless Tobacco: | | | | | Never Used | | | | + +---+---+---+ + + | Comments: Down to 3/4 PPD. Is slowly tapering down. | + + + + +---------+ + | Alcohol Use | Drinks/We | oz/Week | Comments | | | ek | | | + + +---------+ + | Yes | | | occ | + + +---------+ + + + + | Sex Assigned at | Date Recorded | | | | + + + | Not on file | | + + + as of this encounter Plan of Treatment +--------+ + [...] [place] | | | | | | [address] | | | | | | | | +--------+ + + + + | 10/06/ | Office | Pulmonology | Cameron Rodriguez, | | | 2018 | Visit | | MD Bri Le | | | | | | [place], [place] | | | | | | [place] | | | | | | [address] | | | | | | | | +--------+ + + + + + +--------+ + + | Name | Priori | Associated Diagnoses | Order Schedule | | | ty | | | + +--------+ + + | TSH | Routin | Irritable bowel | Expected: | | | e | syndrome with | 08/10/2018, Expires: | | | | diarrhea | 11/08/2018 | + +--------+ + + | Tissue Transglutaminase (IgA + | Routin | Irritable bowel | Expected: 08/10/2018 | | IgG) | e | syndrome with | (Approximate), | | | | diarrhea | Expires: 08/10/2019 | + +--------+ + + as of this encounter Visit Diagnoses + + | Diagnosis | + + | Irritable bowel syndrome with diarrhea - Primary | + + | Irritable bowel syndrome | + +"
--- OUTSIDE RECORDS SUMMARY | ~2018-08-29 | XMS | Clinical Summary ---
Demographics + + + | Address | [address] | | | [place] [address] | + + + | Home Phone | | + + + | Preferred Language | Unknown | + + + | Marital Status | Unknown | + + + | Sabianist Affiliation | Unknown | + + + [...] Team Providers + +------+ + | Care Product Advisor Name | Role | Phone | + +------+ + PP | Unavailable | + +------+ + Source Comments [facility] Allergies Not on File Current [...] | + + + + + | Influenza (Flu) | | | | | vaccination (#1) | 8 | | | + + + + + Results Not on filefrom Last 3 Months"
--- OUTSIDE RECORDS SUMMARY | ~2018-08-29 | XMS | Encounter Summary ---
Demographics + + + | Address | [address] | | | [place] [address] | + + + | Home Phone | | + + + | Preferred Language | Unknown | + + + | Marital Status | Unknown | + + + | Presybeterian Affiliation | 1013 | + + + | Race | Unknown | + + + | Ethnic Group | Unknown | + + + Author + + + | Author | [facility] | | | and [place] | + + + | Organization | [facility] | | | and [place] | + + + | Address | Unknown | + + + | Phone | Unavailable | + + + Support + + + + + | Name | Relationship | Address | Phone | + + + + + | Codi Guajardo | ECON | [address] | | | | | [address] [place] | | | | | [address] | | + + + + + Care Team Providers + +------+ + | Care Pharmacy Clerk Name | Role | Phone | + +------+ + | Son Salamanca | PCP | | + +------+ + Encounter Details +--------+ + + + + | Date | Type | Department | Care Team | Description | +--------+ + + + + | 08/12/ | Ancillary | [facility] | Provider, | | | 2019 | Orders | [facility] | MD [address] | | | | | IMAGING | [address] | | | | | [phone] | [place] [address] | | +--------+ + + + + [...] | | | 2018 | | | [address] | | | | | | [place], [place] | | | | | | [place] | | | | | | [address] | | | | | | | | +--------+ + + + + | 10/06/ | Office | Pulmonology | Cameron Rodriguez, | | | 2018 | Visit | | MD [address] | | | | | | [place], [place] | | | | | | [place] | | | | | | [address] | | | | | | | | +--------+ + + + + as of this encounter Results [place] JANEL (09/24/201730) + + + | Narrative | Performed At | + + + | External films for comparison only | [facility] | | | | | No results will be in the chart. | | + + + + +---------+ + + | Performing | Address | City/State/Zipcode | Phone Number | | Organization | | | | + +---------+ + + | [facility] | | | | + +---------+ + + in this encounter Visit Diagnoses Not on filein this encounter"
--- OUTSIDE RECORDS SUMMARY | ~2018-08-29 | XMS | Encounter Summary ---
Demographics + + + | Address | [address] | | | [place] [address] | + + + | Home Phone | | + + + | Preferred Language | Unknown | + + + | Marital Status | Unknown | + + + | Catholic Affiliation | 1013 | + + + | Race | Unknown | + + + | Ethnic Group | Unknown | + + + Author + + + | Author | [facility] | | | and [place] | + + + | Organization | [facility] | | | and [place] | + + + | Address | Unknown | + + + | Phone | Unavailable | + + + Support + + + + + | Name | Relationship | Address | Phone | + + + + + | Codi Guajardo | ECON | [address] | | | | | [address] [facility] | | | | | [address] | | + + + + + Care Team Providers + +------+ + | Care Lead Radiation Therapist Name | Role | Phone | + +------+ + | Son Salamanca | PCP | | + +------+ + Reason for Visit + + + | Reason | Comments | + + + | Appointment | | + + + Encounter Details +--------+ + + + + | Date | Type | Department | Care Team | Description | +--------+ + + + + | 08/26/ | Telephone | [facility] | Noam Melgoza | Appointment | | 2019 | | GASTROENTEROLOGY | MD U[address] | | | | | [address] [place] | [address] [place] | | | | | [address] [place], [place] | [place] [address] | | | | | [address] | [phone] | | | | | [phone] | | | +--------+ + + + + Social History + +-------+ +--------+ + | Tobacco Use | Types | Packs/Day | Years | Date | | | | | Used | | + +-------+ +--------+ + | Current Every Day | | 1 | 32 | Started: 1986 | | Smoker | | | | [...] [place] | | | | | | [address] | | | | | | | | +--------+ + + + + | 10/06/ | Office | Pulmonology | Cameron Rodriguez, | | | 2018 | Visit | | MD Bri Le | | | | | | [place] | | | | | | [place] | | | | | | [address] | | | | | | | | +--------+ + + + + as of this encounter Visit Diagnoses Not on filein this encounter"
--- OUTSIDE RECORDS SUMMARY | ~2018-08-29 | XMS | Encounter Summary ---
Demographics + + + | Address | [address] | | | [place] [address] | + + + | Home Phone | | + + + | Preferred Language | Unknown | + + + | Marital Status | Unknown | + + + | Yazidism Affiliation | 1013 | + + + | Race | Unknown | + + + | Ethnic Group | Unknown | + + + Author + + + | Author | [facility] | | | and [place] | + + + | Organization | [facility] | | | and [place] | + + + | Address | Unknown | + + + | Phone | Unavailable | + + + Support + + + + + | Name | Relationship | Address | Phone | + + + + + | Codi Guajardo | ECON | [address] | | | | | [address] | | | | | [address] | | + + + + + Care Team Providers + +------+ + | Care Laboratory Inspector Name | Role | Phone | + [...] Esther CELIS | | | | | [phone] | [place] [address] | | +--------+ + + + + [...] | | 2018 | | | MD [address] | | | | | | [place], [place] | | | | | | [place] | | | | | | [address] | | | | | | | | +--------+ + + + + | 10/06/ | Office | Pulmonology | Cameron Rodriguez, | | | 2018 | Visit | | MD [address] | | | | | | [place], [place] | | | | | | [place] | | | | | | [address] | | | | | | | | +--------+ + + + + as of this encounter Results XR Chest 2 Vws (07/15/20152019) + + + | Narrative | Performed [...] | | | + +---------+ + + CT Chest w Contrast (04/22/20151939) + + + | Narrative | Performed [...] | | | + +---------+ + + XR Chest 2 Vws (09/17/2014 1255) + + + | Narrative | Performed [...] | | | + +---------+ + + XR Chest AP Portable (09/06/20142214) + + + | Narrative | Performed [...] | | | + +---------+ + + CT Chest w Contrast (07/28/2014 1345) + + + | Narrative | Performed [...] | | | + +---------+ + + XR Chest 2 Vws (06/10/2014 1120) + + + | Narrative | Performed [...] | | | + +---------+ + + XR Chest 2 Vws (03/14/2014 1550) + + + | Narrative | Performed [...] | | | + +---------+ + + XR Chest 2 Vws (09/18/2013 5150) + + + | Narrative | Performed [...] | | | + +---------+ + + XR Chest AP Portable (04/05/2011 0835) + + + | Narrative | Performed [...] | | | + +---------+ + + XR Chest AP Portable (12/26/2010 0129) + + + | Narrative | Performed [...] | | | + +---------+ + + XR Chest AP Portable (12/26/2010 1820) + + + | Narrative | Performed [...] | | | + +---------+ + + XR Chest AP Portable (02/22/2010 1540) + + + | Narrative | Performed [...] | | | + +---------+ + + XR Chest 2 Vws (11/07/20099) + + + | Narrative | Performed [...]
--- OUTSIDE RECORDS SUMMARY | ~2018-08-29 | XMS | Encounter Summary ---
Demographics + + + | Address | [address] | | | [place] [address] | + + + | Home Phone | | + + + | Preferred Language | Unknown | + + + | Marital Status | Unknown | + + + | Voodoo Affiliation | 1013 | + + + | Race | Unknown | + + + | Ethnic Group | Unknown | + + + Author + + + | Author | [facility] | | | and [place] | + + + | Organization | [facility] | | | and [place] | + + + | Address | Unknown | + + + | Phone | Unavailable | + + + Support + + + + + | Name | Relationship | Address | Phone | + + + + + | Codi Guajardo | ECON | [address] | | | | | [address] [place] | | | | | [address] | | + + + + + Care Team Providers + +------+ + | Care Chain Saw Operator Name | Role | Phone | + [...] | | | | [address] [facility] [address] | Esther Johnson. | | | | | [address] [place] | [place] [address] | | | | | [address] | | | | | | [phone] | | | +--------+ + + + [...] | 2018 | | | MD [place] | | | | | | [place], [place] | | | | | | [place] | | | | | | [address] | | | | | | | | +--------+ + + + + | 10/06/ | Office | Pulmonology | RodriguezCameron, | | | 2018 | Visit | | MD [address] [place] | | | | | | [place], [place] | | | | | | [place] | | | | | | [address] | | | | | | | | +--------+ + + + + as of this encounter Procedures + +--------+ + + + | Procedure Name | Priori | Date/Time | Associated Diagnosis | Comments | | | ty | | | | + +--------+ + + + | EXTERNAL LAB: TSH | Routin | 08/19/2018 | | Results for this | | | e | 0000 PST | | procedure are in the | | | | | | results section. | + +--------+ + + + | TISSUE | Routin | 08/19/2018 | | Results for this | | TRANSGLUTAMINASE, | e | 0000 PST | | procedure are in the | | IGA | | | | results section. | + +--------+ + + + | TISSUE | Routin | 08/19/2018 | | Results for this | | TRANSGLUTAMINASE, | e | 0000 PST | | procedure are in the | | IGG | | | | results section. | + +--------+ + + + in this encounter Results Tissue Transglutaminase, IgA (08/19/2018) + +-------+ + + | Component | Value | Ref Range | Performed At | + +-------+ + + | Tissue | <0.6 | 0 - 7 U/mL | | | Transglutaminase IgA | | | | + +-------+ + + + + | Specimen | + + | Blood | + + Tissue Transglutaminase, IgG (08/19/2018) + +-------+ + + | Component | Value | Ref Range | Performed At | + +-------+ + + | Tissue | <0.5 | 0 - 7 U/mL | | | Transglutaminase IgG | | | | + +-------+ + + + + | Specimen | + + | Blood | + + External Lab: TSH (08/19/2018) + +-------+ + + | Component | Value | Ref Range | Performed At | + +-------+ + + | TSH, External | 3.62 | 0.27 - 4.2 | EXTERNAL LAB | + +-------+ + + + + | Specimen | [...]
--- OUTSIDE RECORDS SUMMARY | ~2018-08-29 | XMS | Clinical Summary ---
Demographics + + + | Address | [address] | | | [place] [address] | + + + | Home Phone | | + + + | Preferred Language | Unknown | + + + | Marital Status | Unknown | + + + | Holiness Affiliation | Unknown | + + + [...] Team Providers + +------+ + | Care Certified Athletic Trainer Name | Role | Phone | + +------+ + PP | Unavailable | + +------+ + Source Comments [facility] Allergies Not on File Current Medications Not [...]
--- OUTSIDE RECORDS SUMMARY | ~2018-08-29 | XMS | Encounter Summary ---
Demographics + + + | Address | [address] | | | [place] [address] | + + + | Home Phone | | + + + | Preferred Language | Unknown | + + + | Marital Status | Unknown | + + + | Pentecostalism Affiliation | 1013 | + + + | Race | Unknown | + + + | Ethnic Group | Unknown | + + + Author + + + | Author | [facility] | | | and [place] | + + + | Organization | [facility] | | | and [place] | + + + | Address | Unknown | + + + | Phone | Unavailable | + + + Support + + + + + | Name | Relationship | Address | Phone | + + + + + | Codi Guajardo | ECON | [address] | | | | | [address] | | | | | [address] | | + + + + + Care Team Providers + +------+ + | Care Outside Rigger Name | Role | Phone | + [...] Esther CELIS | | | | | [phone] | [place] [address] | | +--------+ + + + + [...] | | 2018 | | | [address] | | | | | | [place], [place] | | | | | | [place] | | | | | | [address] | | | | | | | | +--------+ + + + + | 10/06/ | Office | Pulmonology | Cameron Rodriguez, | | | 2018 | Visit | | MD [address] | | | | | | [place], [place] | | | | | | [place] | | | | | | [address] | | | | | | | [...]
--- OUTSIDE RECORDS SUMMARY | ~2018-08-29 | XMS | Encounter Summary ---
Demographics + + + | Address | [address] | | | [place] [address] | + + + | Home Phone | | + + + | Preferred Language | Unknown | + + + | Marital Status | Unknown | + + + | Orthodoxy Affiliation | 1013 | + + + | Race | Unknown | + + + | Ethnic Group | Unknown | + + + Author + + + | Author | [facility] | | | and [place] | + + + | Organization | [facility] | | | and [place] | + + + | Address | Unknown | + + + | Phone | Unavailable | + + + Support + + + + + | Name | Relationship | Address | Phone | + + + + + | Codi Guajardo | ECON | [address] | | | | | [address] [place] | | | | | [address] | | + + + + + Care Team Providers + +------+ + | Care Chief Librarian Music Department Name | Role | Phone | + [...] Esther CELIS | | | | | [phone] | [place] [address] | | +--------+ + + + + [...] | 2018 | | | MD [address] [place] | | | | | | [place], [place] | | | | | | [place] | | | | | | [address] | | | | | | | | +--------+ + + + + | 10/06/ | Office | Pulmonology | Cameron Rodriguez, | | | 2018 | Visit | | MD [place] | | | | | | [place], [place] | | | | | | [place] | | | | | | [address] | | | | | | | [...] + + XR Chest 2 Vws (09/18/2013 7467) + + + | Narrative | Performed [...] + + XR Chest AP Portable (12/26/2010 3275) + + + | Narrative | Performed [...]
--- OUTSIDE RECORDS SUMMARY | ~2018-08-29 | XMS | Encounter Summary ---
Demographics + + + | Address | [address] | | | [place] [address] | + + + | Home Phone | | + + + | Preferred Language | Unknown | + + + | Marital Status | Unknown | + + + | Zoroastrianism Affiliation | 1013 | + + + | Race | Unknown | + + + | Ethnic Group | Unknown | + + + Author + + + | Author | [facility] | | | and [place] | + + + | Organization | [facility] | | | and [place] | + + + | Address | Unknown | + + + | Phone | Unavailable | + + + Support + + + + + | Name | Relationship | Address | Phone | + + + + + | Codi Guajardo | ECON | [address] | | | | | [place] | | | | | [address] | | + + + + + Care Team Providers + +------+ + | Care Merchandising Representative Name | Role | Phone | + +------+ + | Son Salamanca | PCP | | + +------+ + Reason for Visit + + + | Reason | Comments | + + + | New Patient | COPD | + + + Evaluate & Treat (Routine) +--------+--------+ + + + + | Status | Reason | Specialty | Diagnoses / | Referred By | Referred To | | | | | Procedures | Contact | Contact | +--------+--------+ + + + + | Closed | | Pulmonology | Diagnoses | Cheikh, | Michael, | | | | | Chronic | DB Cline | MD Cameron | | | | | obstructive | [address] | | | | | pulmonary | [address] | [place], Level | | | | | disease, | [address] | [place] | | | | | unspecified | [place], | [place], [place] | | | | | ([facility]) | [place] [address] | [address] Phone: | | | | | Procedures | Phone: | [phone] | | | | | [facility] CONSULT | [phone] | Fax: | | | | | DOS 08/26/18 | Fax: | [phone] | | | | | | [phone] | | +--------+--------+ + + + + Encounter Details +--------+---------+ + + + | Date | Type | Department | Care Team | Description | +--------+---------+ + + + | 08/26/ | Office | [facility] | Cameron Rodriguez, | Chronic obstructive | | 2018 | Visit | PULMONARY [address] | pulmonary disease, | | | | [place], | [place], [place] | unspecified COPD | | | | [place] [address] | [place], [place] | type (HCC) (Primary | | | | [phone] | [address] | Dx); Simple chronic | | | | | | bronchitis (HCC); | | | | | | Need for | | | | | | pneumococcal | | | | | | vaccine; Cough | +--------+---------+ + + + Social History [...] + + + | Blood Pressure | 102/62 | 08/26/2018918 PDT | + + + + | Pulse | 79 | 08/26/2018918 PDT | + + + + | Temperature | - | - | + + + + | Respiratory Rate | 18 | 08/26/2018918 PDT | + + + + | Oxygen Saturation | 94% | 08/26/2018918 PDT | + + + + | Inhaled Oxygen | - | - | | Concentration | | | + + + + | Weight | 84.5 kg (186 lb 4.6 | 08/26/2018918 PDT | | | oz) | | + + + + | Height | 175.3 cm (5' 9") | 08/26/2018918 PDT | + + + + | Body Mass Index | 27.51 | 08/26/2018918 PDT | + + + + in this encounter Instructions Patient Instructions - Cameron Rodriguez MD - 08/26/2018 0930 PDT DiagnosingCOPD Your healthcare provider will use your past health history, a physical exam, andcertain t eststodiagnose COPD. Health history Your healthcare provider learns about your health history by asking questions. Topics inclu de: History of present illness. Tell your healthcare provider about your symptoms.Alsote ll him or her how long you have had them. Past medical and surgical history. Share other health problems and surgery you have had. Family history. Report serious health problems in close family members. This is especial ly true of any lung problems. Social and environmental history. The most important factor in COPD is whether you smoke or have smoked in the past. You should also tell your provider if you have been around seco ndhand smoke, harmful chemicals, or air pollution. Functional assessment. Report whether breathing gets in the way of your daily activities . Physical exam Your provider will examine you. He or she will check your heart and lungs with a stethoscop e. The focus will be on your airways, including your nose and throat. Diagnostic tests Pulmonary function testsmeasure the flow of air into and out of your lungs. They also check how muchair your lungs can hold. The most common pulmonary function test is spiromet ry. This measures how fast and how much air you can blow out (exhale). This test is importan t to help diagnose COPD. Pulse oximetryshows how much oxygen is in your blood (oxygen saturation). This may be done at rest. It may also be done during and after exercise. Arterial blood gas testsmeasure levels of oxygen and carbon dioxide in your blood. Chest X-raysshow the size and shape of your lungs. They can also show certain problems in the lungs. CTscansshow detailed images of the lungs. Date Last Reviewed: 03/16/[id number] [employer]. [address] [place] [address], [place] [address]. All righ ts reserved. This information is not intended as a substitute for professional medical care. Always follow your healthcare professional's instructions. in this encounter Progress Notes Cameron Rodriguez MD - 08/26/2018 0930 PDTFormatting of this note may be different from sadia ryan original. Pulmonary Consult Note 08/26/2018 HPI Serenity Demarco is a 43 y.o. female patient of DB Marcano here today for evalua tion of possible COPD. Ms. Demarco believes that she was previously evaluated by a forest landscape ecology professor "many years ago". He told her that she had COPD rather than asthma. The patient's history of asthma/COPD) 1 0 12 years. In general the patient reports episodes of acute bronchitis 2 or so times a year. The freq uency of bronchitis appears to be higher in years that she does not receive a seasonal influ kandice vaccination. Reviewing records indicate that Ms. Demarco was treated with doxycycline in June 2018. Apparently she presented with worsening cough. Her O2 saturation was noted to be 92%. No s ystemic corticosteroids were prescribed. Patient currently smokes a pack of cigarettes a day and has done so for the last 32 years. Recently Serenity notes that their symptoms have been relatively stable. Currently they reports their main symptoms at this point to be cough. Serenity are able to w alk 1/2 mile at their own pace on level ground before developing shortness of breath. The di stance walked is predominately limited by fatigue. One year ago, they feel that they could w alk 1/2 mile. Triggers for their shortness of breath include exertion and stairs. Relieving factors include rest. They do not exercise regularly. Serenity are not currently enrolled in pulmonary rehabilitati on. They have not completed pulmonary rehabilitation in the past. The patient does cough chronically, and does produce mucous. The mucous is clear-green in c olor. They have not had hemoptysis in the last 6 months. Treatments that they have been used in the past include Flovent and short acting bronchodil ators. No other medications are noted to be ineffective. Currently they use Flovent 110 g per puff, 1 inhalation twice daily. Serenity does not feel that these treatments are helping their breathing. Currently they are using their rescue inhaler, Ventolin, 3 times a day. T river are using their albuterol/ipratropium nebulizer with 2 times a day. They have not had to be hospitalized for breathing issues in the past. Serenity has not requ ired intubation in the past. They have not had to go to the emergency room in the last year related to breathing problems. They have had 1 exacerbations in the past year requiring treatment without prednisone. Serenity has been evaluated for nocturnal oxygen reportedly via polysomnogram. No significan t abnormalities were noted. Past Medical History Past Medical History: Diagnosis Date Acute insomnia Anxiety Asthma 2007 Bipolar 1 disorder ([facility]) COPD (chronic obstructive pulmonary disease) ([facility]) 2007 Decreased anal sphincter tone Degenerative disc disease, lumbar Diarrhea Fecal incontinence GERD (gastroesophageal reflux disease) Hemorrhoid Instability of right knee joint Internal derangement of knee Left knee pain Low back pain Right knee pain Right wrist injury Substance abuse ([facility]) Urinary incontinence Past Surgical History Past Surgical History: Procedure Laterality Date ABCESS DRAINAGE 01/14/2016 I&D rectal abscess. Discharge Diagnoses: Significant advanced left ischiorectal fosse absc ess status post incision and drainage. Hypertension. Hypokalemia uncertain etiology (resolve d). History of methamphetamine addiction. Hypertension. Gastroesophageal reflux. ~Ubaldo ryan MD [facility] ANTERIOR CRUCIATE LIGAMENT REPAIR Left 2016 APPENDECTOMY EYE SURGERY HERNIA REPAIR HYSTERECTOMY 1999 Retained ovaries Family History: Family History Problem Relation Age of Onset No Known Problems Mother * Father unknown other than DM Brain cancer Sister No Known Problems Brother No Known Problems Sister Social History: She reports that she has been smoking. She started smoking about 33 years ago. She has a 3 2.00 pack-year smoking history. She has never used smokeless tobacco. She reports that she d rinks about 10.8 oz of alcohol per week . She reports that she does not use drugs. Allergies: Allergies Allergen Reactions Tramadol Other (See Comments) and Itching Reaction: Unknown Morphine Sulfate Other (See Comments) Turned blue Medications: Current Outpatient Prescriptions: acetaminophen (TYLENOL) 500 mg tablet, Take 500 mg by mouth every 6 hours as needed., Disp: , Rfl: albuterol (VENTOLIN HFA) 90 mcg/puff inhaler, 2 puffs by mouth every 4 hours as needed for shortness of breath, Disp: , Rfl: albuterol-ipratropium 2.5-0.5 mg/3 mL SOLN, Take 3 mLs by nebulization every 4 hours a s needed for Wheezing or Shortness of Breath., Disp: , Rfl: benzonatate (TESSALON) 100 mg capsule, , Disp: , Rfl: buPROPion (WELLBUTRIN XL) 300 mg 24 hr tablet, 1 tablet by mouth in the AM and 150 mg in the PM, Disp: , Rfl: clonazePAM (KLONOPIN) 0.5 mg tablet, , Disp: , Rfl: ergocalciferol (VITAMIN D-2) 50,000 units capsule, Take 50,000 Units by mouth every 7 days., Disp: , Rfl: escitalopram (LEXAPRO) 20 mg tablet, Take 20 mg by mouth every evening., Disp: , Rfl: fluticasone (FLOVENT HFA) 110 mcg/puff inhaler, Inhale 1 puff into the lungs 2 times d aily., Disp: , Rfl: gabapentin (NEURONTIN) 600 MG tablet, Take 600 mg by mouth 2 times daily., Disp: , Rfl : hydrocortisone 1% ointment, Apply 1 Application topically 2 times daily., Disp: , Rfl: loperamide (IMODIUM) 2 mg capsule, , Disp: , Rfl: lurasidone (LATUDA) 120 mg tablet, Take 120 mg by mouth daily (with breakfast)., Disp: , Rfl: Multiple Vitamins-Minerals (MULTIVITAMIN WITH MINERALS) tablet, Take 1 tablet by mouth Daily., Disp: , Rfl: omeprazole (PRILOSEC) 40 MG capsule, , Disp: , Rfl: potassium 99 mg tablet, Take 99 mg by mouth Daily., Disp: , Rfl: tiZANidine (ZANAFLEX) 4 mg tablet, Take 4 mg by mouth 3 times daily as needed., Disp: , Rfl: trospium 20 MG tablet, , Disp: , Rfl: Immunizations: Immunization History Administered Date(s) Administered DTP (PED) 1973, 1973, 10/04/1974 INFLUENZA PF QUAD(PED/ADOL/ADULT),PSKT or VIAL 02/13/2016 INFLUENZA PF TRIVALENT(PED/ADOL/ADULT), PSKT 04/04/2015 MMR, 2 DOSE (PED/ADULT) 10/04/1974 PNEUMOCOCCAL CONJUGATE 13-VALENT (PCV13) 03/28/2016 POLIOVIRUS,OPV (LIVE) 1973, 1973, 10/04/1974 TDAP, (ADOL/ADULT) 05/20/2010 Review of Systems Constitutional: Denies fever, chills, sweats and unexpected weight change. Sleep: Denies excessive snoring, and daytime sleepiness. Eyes: Denies vision change, and eye irritation. ENT: Denies earache, tinnitus, nasal congestion, nosebleeds, sore throat, and hoarseness. Resp: Denies hemoptysis or pleuritic chest pain. CV: Denies neck/chest/jaw pain with exertion, palpitations, orthopnea and claudication. GI: Denies trouble swallowing, chronic heartburn, nausea, vomiting, abdominal pain, diarrh ea, melena, and hematochezia. Denies dysuria, hematuria, urinary frequency, difficulty emptying bladder. Musculoskeletal: Denies joint pain/stiffness, joint swelling, muscle cramps, muscle weaknes s. Derm: Denies rash or suspicious lesions. Neurologic: Denies frequent headaches, seizures, tremors, numbness or tingling in hands or feet, vertigo, and fall or difficulty walking in past 6 months Psych Denies depression, anxiety, suicidal ideation. Endo Denies cold intolerance, heat intolerance. Heme Denies abnormal bruising, bleeding, and enlarged lymph nodes. Allergy Denies urticaria, allergic rash, hay fever Objective BP 102/62 | Pulse 79 | Resp 18 | Ht 1.753 m (5' 9") | Wt 84.5 kg (186 lb 4.6 oz) | SpO 2 94% Comment: RA | BMI 27.51 kg/m General Appearance: Alert, cooperative, no distress, appears stated age. Head: Normocephalic, without obvious abnormality, atraumatic. Eyes: PERRL, conjunctiva/corneas clear. Ears: Normal external appearance, TM's without abnormality. Nose: Nasal mucosa normal, septum midline, no abnormal drainage or sinus tenderness. Throat: Lips, mucosa, and tongue normal; no teeth or dentures. MP 3. Neck: Supple, symmetrical, no adenopathy, normal JVD Lungs: No accessory muscle use, breath sounds are reduced to auscultation bilaterally, in termittent wheezes, no crackles or rhonchi. No dullness to percussion. Chest Wall: No tenderness or deformity. Heart: Regular rate and rhythm, S1, S2 normal, no murmur, no rub or gallop Abdomen: Soft, non-tender. No hepatosplenomegaly. Extremities: Extremities normal, atraumatic, no cyanosis, clubbing. Edema no Pulses: Radial pulses 2+ and symmetric Skin: Warm and dry Lymph nodes: No abnormal cervical or supraclavicular nodes Neurologic: Gait normal Data: Chest x-ray(s) from 07/15/15 were reviewed today with the patient present. The x-ray(s) show question of mild hyperinflation but otherwise without abnormality.. Chest CT(s) from 04/22/15 were reviewed today with the patient present. The CT(s) scan show thickening/irregularities of the distal esophagus. There is evidence of atelectatic changes in the right lower lobe and the lingula. No obvious evidence of centrilobular emphysema. Home function tests performed 05/18/15 at [facility] show a forced vital capacity of 2.54, 62% of predicted with an FEV1 of 1.73, 52% of predicted. The FEV1/FVC was 62%. Th e uncorrected DLCO is 16.97, 59% of predicted DB Marcano's notes were reviewed in clinic today. Assessment Serenity Demarco is a 43-year-old smoker who presents at the request of DB Marcano fo r pulmonary consultation regarding possible COPD. The patient recalls in the distant past been evaluated by a forest landscape ecology professor who told her that she had COPD as opposed to asthma. The patient has a [id number]-ysmw smoking history and cont inues to smoke a pack a cigarettes a day. Over the years she tends to have 1 2 episodes o f acute bronchitis requiring treatment with antibiotics. The patient has distant memory of a course of systemic corticosteroids. None recently. Her last apparent treatment with anti biotics included doxycycline in June 2018. The patient had a CT scan of the chest from 04/22/15. Minimal abnormalities were noted in t he lung. However the patient was noted to have thickening/irregularities of the distal esop hagus. I have suggested to Debby [place] that she discuss these findings further with Mr. Jermaine ceja. The patient definitely have symptoms consistent with chronic bronchitis. Intermittent whee zing was noted on exam. Pulmonary function test from 2014 showed evidence of moderately severe obstructive changes. I suggested to Debby [place] that we obtain a PA/lateral chest x-ray given the patient's coug h and ongoing history of tobacco. This patient is potentially of lung cancer screening cand warnockte. In addition repeat spirometry, lung volumes and diffusion capacity along with walking oxime try recommended. Plan 1. PA/lateral chest x-ray with follow-up. 2. Pulmonary function tests as noted above at the time of follow-up. 3. Exertional oximetry at the time of follow-up. 4. Prevnar 13 today. 5. Smoking cessation strongly encouraged. 6. Pulmonary clinic follow-up appointment on the same day as the above noted diagnostic st udies within the next 2 3 weeks. 7. Once again we will defer further evaluation of the patient's previously appreciated dis dread esophageal abnormalities to DB Marcano. CC: Jolly Marcano this encounter Plan of Treatment +--------+ + + + + | Date | Type | Specialty | Care Team | Description | +--------+ + + + + | 10/06/ | Appointment | Pulmonology | Cameron Rodriguez, | | | 2018 | | | MD Bri Le | | | | | | [place], [place] | | | | | | [place] | | | | | | [id number] | | | | | | | | +--------+ + + + + | 10/06/ | Office | Pulmonology | Cameron Rodriguez, | | 2018 | Visit | | MD Bri Le | | | | | | [place], [place] | | | | | | [place] | | | | | | [address] | | | | | | | | +--------+ + + + + + +--------+ + + | Name | Priori | Associated Diagnoses | Order Schedule | | | ty | | | + +--------+ + + | PFT [facility] | JUAN CARLOS | Simple chronic | 1 Occurrences | | | | bronchitis (HCC) | starting 08/26/2018 | | | | Chronic obstructive | until 08/27/2019 | | | | pulmonary disease, | | | | | unspecified COPD | | | | | type (HCC) | | + +--------+ + + | XR Chest PA and Lateral | Routin | Simple chronic | Expected: | | | e | bronchitis (HCC) | 09/09/2018, Expires: | | | | | 08/26/2019 | + +--------+ + + as of this encounter Visit Diagnoses + + | Diagnosis | + + | Chronic obstructive pulmonary disease, unspecified COPD type (HCC) - Primary | + + | Simple chronic bronchitis (HCC) | + + | Simple chronic bronchitis | + + | Need for pneumococcal vaccine | + + | Need for prophylactic vaccination against streptococcus pneumoniae (pneumococcus) | + + | Cough | + +
--- OUTSIDE RECORDS SUMMARY | ~2018-08-29 | XMS | Encounter Summary ---
Demographics + + + | Address | [address] | | | [place] [address] | + + + | Home Phone | | + + + | Preferred Language | Unknown | + + + | Marital Status | Unknown | + + + | Rastafarian Affiliation | 1013 | + + + | Race | Unknown | + + + | Ethnic Group | Unknown | + + + Author + + + | Author | [facility] | | | and [place] | + + + | Organization | [facility] | | | and [place] | + + + | Address | Unknown | + + + | Phone | Unavailable | + + + Support + + + + + | Name | Relationship | Address | Phone | + + + + + | Codi Guajardo | ECON | [address] | | | | | [address] [place] [place] | | | | | [address] | | + + + + + Care Team Providers + +------+ + | Care General Manager Land Department Name | Role | Phone | + +------+ + | Son Salamanca | PCP | | + +------+ + Encounter Details +--------+ + + + + | Date | Type | Department | Care Team | Description | +--------+ + + + + | 07/29/ | Abstract | RICHA SHAW | Provider, | | | 2019 | | GASTROENTEROLOGY | MD Deanna Hanna | | | | | [address] [place] | [place]. | | | | | [address] | [place] [address] | | | | | [address] | | | | | | [phone] | | | +--------+ + + + + Social History + +-------+ +--------+------+ | Tobacco Use | Types | Packs/Day | Years | Date | | | | | Used | | + +-------+ +--------+------+ | Current Every Day | | 0.75 | | | | Smoker | | | | | + +-------+ +--------+------+ + + | Comments: Down to 3/4 PPD. Is slowly tapering down. | + + + + + | Sex Assigned [...] [place] | | | | | | [address] | | | | | | | | +--------+ + + + + | 10/06/ | Office | Pulmonology | Cameron Rodriguez, | | | 2018 | Visit | | MD Bri Le | | | | | | [place] | | | | | | [place] | | | | | | [address] | | | | | | | | +--------+ + + + + as of this encounter Visit Diagnoses Not on filein this encounter"
--- OUTSIDE RECORDS SUMMARY | ~2018-08-29 | XMS | Clinical Summary ---
Demographics + + + | Address | [address] | | | [place] [address] | + + + | Home Phone | | + + + | Preferred Language | Unknown | + + + | Marital Status | Unknown | + + + | Jewish Affiliation | 1013 | + + + | Race | Unknown | + + + | Ethnic Group | Unknown | + + + Author + + + | Author | [facility] | | | and [place] | + + + | Organization | [facility] | | | and [place] | + + + | Address | Unknown | + + + | Phone | Unavailable | + + + Support + + + + + | Name | Relationship | Address | Phone | + + + + + | Codi Guajardo | ECON | [address] | | | | | [address] [place] | | | | | [address] | | + + + + + Care Team Providers + +------+ + | Care Electronics Assembler Name | Role | Phone | + [...] | | + + + +--------+ + Current Medications + + +-------+---------+------+------+-------+ | Prescription | Sig. | Disp. | Refills | Star | End | Statu | | | | | | t | Date | s | | | | | | Date | | | + + +-------+---------+------+------+-------+ | buPROPion | 1 tablet by mouth in | | | 02/14 | | Activ | | (WELLBUTRIN XL) 300 | the AM and 150 mg | | | 3/20 | | e | | mg 24 hr tablet | in the PM | | | 12 | | | + + +-------+---------+------+------+-------+ | albuterol | 2 puffs by mouth | | | 02/14 | | Activ | | (VENTOLIN HFA) [...] | | | + + +-------+---------+------+------+-------+ | Multiple | Take 1 tablet by | | | | | Activ | | Vitamins-Minerals | mouth Daily. | | | | | e | | (MULTIVITAMIN WITH | | | | | | | | MINERALS) tablet | | | | | | | + + +-------+---------+------+------+-------+ | potassium 99 mg | Take 99 mg by mouth | | | | | Activ | | tablet | Daily. | | | | | e | + + +-------+---------+------+------+-------+ | tiZANidine | Take 4 mg by mouth 3 | | | 12/14 | | Activ | | (ZANAFLEX) 4 mg | times daily as | | | 07/05 | | e | | tablet | needed. | | | 18 | | | + + +-------+---------+------+------+-------+ | ergocalciferol | Take 50,000 Units by | | | 06/2 | | Activ | | (VITAMIN D-2) 50,000 | mouth every 7 days. | | | 03/05 | | e | | units capsule | | | | 18 | | | + + +-------+---------+------+------+-------+ | hydrocortisone 1% | Apply 1 Application | | | | | Activ | | ointment | topically 2 times | | | | | e | | | daily. | | | | | | + + +-------+---------+------+------+-------+ | lurasidone | Take 120 mg by mouth | | | | | Activ | | (LATUDA) 120 mg | daily (with | | | | | e | | tablet | breakfast). | | | | | | + + +-------+---------+------+------+-------+ | benzonatate | | | | 01/0 | | Activ | | (TESSALON) 100 mg | | | | 7/20 | | e | | capsule | | | | 19 | | | + + +-------+---------+------+------+-------+ | loperamide | | | | 11/2 | | Activ | | (IMODIUM) 2 mg | | | | 0/20 | | e | | capsule | | | | 18 | | | + + +-------+---------+------+------+-------+ | clonazePAM | | | | 02/0 | | Activ | | (KLONOPIN) 0.5 mg | | | | 8/20 | | e | | tablet | | | | 19 | | | + + +-------+---------+------+------+-------+ | omeprazole | | | | 02/0 | | Activ | | (PRILOSEC) 40 MG | | | | 8/20 | | e | | capsule | | | | 19 | | | + + +-------+---------+------+------+-------+ | gabapentin | Take 600 mg by mouth | | | 03/0 | | Activ | | (NEURONTIN) 600 MG | 2 times daily. | | | 6/20 | | e | | tablet | | | | 19 | | | + + +-------+---------+------+------+-------+ | trospium 20 MG | | | | 03/0 | | Activ | | tablet | | | | 5/20 | | e | | | | | | 19 | | | + + +-------+---------+------+------+-------+ | | Take 3 mLs by | | | | | Activ | | albuterol-ipratropiu | nebulization every 4 | | | | | e | | m 2.5-0.5 mg/3 mL | hours as needed for | | | | | | | SOLN | Wheezing or | | | | | | | | Shortness of Breath. | | | | | | + + +-------+---------+------+------+-------+ | fluticasone | Inhale 1 puff into | | | | | Activ | | (FLOVENT HFA) 110 | the lungs 2 times | | | | | e | | mcg/puff inhaler | daily. | | | | | | + + +-------+---------+------+------+-------+ | fluticasone | Inhale 2 puffs two | | | 02/14 | / | Disco | | (FLOVENT HFA) 110 | times a day | | | 09/02 | 09/02 | ntinu | | mcg/puff inhaler | | | | 12 | 19 | ed | + + +-------+---------+------+------+-------+ | omeprazole | Take 20 mg by mouth | | | 02/14 | 07/17 | Disco | | (PRILOSEC) 20 mg | Daily. | | | 09/02 | 03/05 | ntinu | | capsule | | | | 12 | 19 | ed | + + +-------+---------+------+------+-------+ | cyclobenzaprine | Take 10 mg by mouth | | | 02/14 | 07/17 | Disco | | (FLEXERIL) 10 mg | nightly. | | | 09/02 | 03/05 | ntinu | | tablet | | | | 12 | 19 | ed | + + +-------+---------+------+------+-------+ | naproxen | Take 500 mg by mouth | | | 02/14 | 07/17 | Disco | | (NAPROSYN) 500 mg | 2 times daily. | | | 09/02 | 03/05 | ntinu | | tablet | | | | 12 | 19 | ed | + + +-------+---------+------+------+-------+ | GABAPENTIN PO | TABS 800 mg 1 tablet | | | 09/1 | 08/14 | Disco | | | by mouth three | | | 09/02 | 20 | ntinu | | | daily | | | 12 | 19 | ed | + + +-------+---------+------+------+-------+ | ziprasidone | 2 tablets by mouth | | | 02/14 | 07/17 | Disco | | (GEODON) 60 MG | at bedtime | | | 09/02 | 03/05 | ntinu | | capsule | | | | 12 | 19 | ed | + + +-------+---------+------+------+-------+ | CLONAZEPAM PO | TABS 2 tablets at | | | 02/14 | 07/17 | Disco | | | bedtime and up to 2 | | | 09/02 | 20 | ntinu | | | tablets daily as | | | 12 | 19 | ed | | | needed | | | | | | + + +-------+---------+------+------+-------+ | clonidine | Take 0.2 mg by mouth | | | 02/14 | 07/17 | Disco | | (CATAPRES) 0.2 MG | nightly. | | | 20 | 20 | ntinu | | tablet | | | | 12 | 19 | ed | + + +-------+---------+------+------+-------+ | Propoxyphene | TABS as needed for | | | 02/15 | 07/17 | Disco | | N-Acetaminophen | pain | | | 02/02 | 03/05 | ntinu | | (DARVOCET-N 100 PO) | | | | 10 | 19 | ed | + + +-------+---------+------+------+-------+ | PARoxetine (PAXIL) | Take 20 mg by mouth | | | 04/16 | 07/17 | Disco | | 20 mg tablet | 2 times daily. | | | 12/03 | 03/05 | ntinu | | | | | | 10 | 19 | ed | + + +-------+---------+------+------+-------+ | ARIPiprazole | Take 15 mg by mouth | | | | 07/17 | Disco | | (ABILIFY) 1 MG/ML | nightly. | | | | 03/05 | ntinu | | SOLN | | | | | 19 | ed | + + +-------+---------+------+------+-------+ | diclofenac | Take 75 mg by mouth | | | 06/2 | 02/1 | Disco | | (VOLTAREN) 75 mg EC | 2 times daily. | | | 8/20 | 03/05 | ntinu | | tablet | | | | 18 | 19 | ed | + + +-------+---------+------+------+-------+ | meloxicam (MOBIC) | Take 15 mg by mouth | | | | 07/17 | Disco | | 15 mg tablet | nightly. | | | | 03/05 | ntinu | | | | | | | 19 | ed | + + +-------+---------+------+------+-------+ | methocarbamol | Take 500 mg by mouth | | | | 02/1 | Disco | | (ROBAXIN) 500 mg | nightly. | | | | 20 | ntinu | | tablet | | | | | 19 | ed | + + +-------+---------+------+------+-------+ | nicotine | Place 1 patch onto | | | | 021 | Disco | | (NICODERM) 21 mg/24 | the skin. | | | | 9/20 | ntinu | | hr | | | | | 19 | ed | + + +-------+---------+------+------+-------+ | oxybutynin | Take 5 mg by mouth | | | | 02/1 | Disco | | (DITROPAN XL) 5 mg | every evening. | | | | 9/20 | ntinu | | 24 hr tablet | | | | | 19 | ed | + + +-------+---------+------+------+-------+ | oxyCODONE | Take 5-20 mg by | | | 12/0 | 02/1 | Disco | | (ROXICODONE) 1 mg/mL | mouth every 3 hours | | | 5/20 | 9/20 | ntinu | | solution | as needed. | | | 15 | 19 | ed | + + +-------+---------+------+------+-------+ | prazosin | Take 5 mg by mouth | | | | 02/1 | Disco | | (MINIPRESS) 5 mg | nightly. | | | | 9/20 | ntinu | | capsule | | | | | 19 | ed | + + +-------+---------+------+------+-------+ | Promethazine HCl | Take 6.25 mg by | | | 02/15 | / | Disco | | (PHENERGAN PO) | mouth as needed. | | | 10/03 | 9/20 | ntinu | | | | | | 15 | 19 | ed | + + +-------+---------+------+------+-------+ | polyethylene | Take 17 g by mouth | | | | 07/17 | Disco | | glycol (MIRALAX) | Daily. | | | | 20 | ntinu | | powder | | | | | 19 | ed | + + +-------+---------+------+------+-------+ | bisacodyl | Take 5 mg by mouth | | | | /1 | Disco | | (DULCOLAX) 5 mg EC | Daily as needed for | | | | 3/20 | ntinu | | tablet | Constipation. | | | | 19 | ed | + + +-------+---------+------+------+-------+ | docusate-senna | Take 1 tablet by | | | | /1 | Disco | | (SENOKOT-S) 50-8.6 | mouth Daily. | | | | 9/20 | ntinu | | mg per tablet | | | | | 19 | ed | + + +-------+---------+------+------+-------+ | doxycycline | | | | 01/0 | 07/17 | Disco | | (MONODOX) 100 mg | | | | 09/02 | 9/20 | ntinu | | capsule | | | | 19 | 19 | ed | + + +-------+---------+------+------+-------+ | influenza | Flulaval Quad | | | | / | Disco | | quadrivalent | [id number] 60 mcg (15 | | | | 9/20 | ntinu | | (FLULAVAL | mcg x 4)/0.5 mL IM | | | | 19 | ed | | QUADRIVALENT) | suspension | | | | | | | vaccine injection | | | | | | | + + +-------+---------+------+------+-------+ | influenza | Fluvirin [id number] | | | | 02/1 | Disco | | (FLUVIRIN) 0.5 mL | (PF) 45 mcg (15 mcg | | | | 9/20 | ntinu | | vaccine injection | x 3)/0.5 mL IM | | | | 19 | ed | | | syringe | | | | | | + + +-------+---------+------+------+-------+ | | hydrocodone 7.5 | | | | 02/1 | Disco | | HYDROcodone-acetamin | mg-acetaminophen 325 | | | | 9/20 | ntinu | | ophen (NORCO) | mg tablet | | | | 19 | ed | | 7.5-325 mg per | | | | | | | | tablet | | | | | | | + + +-------+---------+------+------+-------+ | | ipratropium-albutero | | | | 03/1 | Disco | | albuterol-ipratropiu | l 0.5 mg-3 mg(2.5 mg | | | | 3/20 | ntinu | | m 2.5-0.5 mg/3 mL | base)/3 mL | | | | 19 | ed | | SOLN | nebulization soln | | | | | | + + +-------+---------+------+------+-------+ | SODIUM FLUORIDE, | SF 5000 Plus 1.1 % | | | | 02/1 | Disco | | DENTAL, (SF 5000 | dental cream | | | | 9/20 | ntinu | | PLUS) 1.1 % CREA | | | | | 19 | ed | + + +-------+---------+------+------+-------+ | trospium 20 MG | | | | 06/16 | 07/17 | Disco | | tablet | | | | 0/20 | 20 | ntinu | | | | | | 19 | 19 | ed | + + +-------+---------+------+------+-------+ | albuterol | Ventolin HFA 90 | | | | / | Disco | | (VENTOLIN HFA) 90 | mcg/actuation | | | | /20 | ntinu | | mcg/puff inhaler | aerosol inhaler | | | | 19 | ed | + + +-------+---------+------+------+-------+ | gabapentin | | | | 02/ | /1 | Disco | | (NEURONTIN) 600 MG | | | | 20 | 9/20 | ntinu | | tablet | | | | 19 | 19 | ed | + + +-------+---------+------+------+-------+ Active Problems + + + | Problem | Noted Date | + + + | Simple chronic bronchitis (HCC) | 08/26/2018 | + + + | Chronic obstructive pulmonary disease (HCC) | 05/27/2018 | + + + + [...] Melgoza | Full incontinence of | | 2018 | Visit | | MD Ubaldo | [...] + | 08/24/ | Abstract | | Sanya, | | | 2018 | | | MD Jacques | | +--------+ + + + + | 08/18/ | Ancillary | | Sanya, | | | 2018 | Orders | | MD Jacques | | +--------+ + + + + | 08/12/ | Ancillary | | Sanya, | | | 2018 | Orders | | MD Jacques | | +--------+ + + + + | 08/12/ | Ancillary | | Sanya, | | | 2019 | Orders | | MD Jacques | | +--------+ + + + + | 08/10/ | Telephone | | Noam Melgoza | LABS | | 2018 | | | MD Ubaldo | | +--------+ + + + + | 08/04/ | Office | | Noam Melgoza | Diarrhea, | | 2018 | Visit | | MD Ubaldo | unspecified type | | | | | | (Primary Dx); | | | | | | Gastroesophageal | | | | | | reflux disease, | | | | | | esophagitis presence | | | | | | not specified; Full | | | | | | incontinence of | | | | | | feces; ETOH abuse | +--------+ + + + + | 07/29/ | Abstract | | Sanya, | | | 2018 | | | MD Jacques | | +--------+ + + + + [...] | + + +------+ + | No Known Problems | Brother | | | + + +------+ + | * | Father | | unknown other than DM | + + +------+ + | No Known Problems | Mother | | | + + +------+ + | Brain cancer | Sister | | | + + +------+ + | No Known Problems | Sister | | | + + [...] + + | 10/06/ | Appointment | | Cameron Rodriguez, | | | 2018 | | | MD Bri Le | | | | | | [place], [place] | | | | | | [place] | | | | | | [address] | | | | | | | | +--------+ + + + + | 10/06/ | Office | | Cameron Rodriguez, | | | 2018 | Visit | | MD Bri Le | | | | | | [place], [place] | | | | | | [place] | | | | | | [address] | | | | | | | [...] | | 02/13/2016, 04/04/2015 | | | (#1) | 8 | [...] | LABS - EXTERNAL SCAN | | 07/01/2018 | | Results for this | | | | 0000 PST | | procedure are in the | | | | | | results section. | + +--------+ + + + from Last 3 Months Results External Lab: [facility] (08/19/2018) + +-------+ + [...] + + | Blood | + + LABS - EXTERNAL SCAN (07/01/2018) + + + | Narrative | Performed At | + + + | Ordered by an | | | unspecified provider. | | + + + from Last 3 Months Insurance + +--------+ +--------+ +---------+ | Payer | Benefi | Subscriber | Type | Phone | Address | | | t Plan | ID | | | | | | / | | | | | | | Group | | | | | + +--------+ +--------+ +---------+ | [employer] | MOD[employer] | [id number] | Medica | [phone] | | MEDICAID HMO | HEALTH | | id | [phone] | | | | [place] | | | | | | | [place] | | | | | + +--------+ +--------+ +---------+ + +--------+ +--------+ + + | Guarantor Name | Accoun | Relation to | Date | Phone | Billing Address | | | t Type | Patient | of | | | | | | | | | | + +--------+ +--------+ + + | DALY SPICER | Person | Self | [birth year] | Home: | [address] | | | al/Fam | | 1975 | [phone] [place] [address] | | | erik | | | [phone] | | + +--------+ +--------+ + +
--- OUTSIDE RECORDS SUMMARY | ~2018-08-29 | XMS | Encounter Summary ---
Demographics + + + | Address | [address] | | | [place] [address] | + + + | Home Phone | | + + + | Preferred Language | Unknown | + + + | Marital Status | Unknown | + + + | Lutheran Affiliation | 1013 | + + + | Race | Unknown | + + + | Ethnic Group | Unknown | + + + Author + + + | Author | [facility] | | | and [place] | + + + | Organization | [facility] | | | and [place] | + + + | Address | Unknown | + + + | Phone | Unavailable | + + + Support + + + + + | Name | Relationship | Address | Phone | + + + + + | Codi Guajardo | ECON | [address] | | | | | [place] [place] | | | | | [address] | | + + + + + Care Team Providers + +------+ + | Care Welt Butter Hand Name | Role | Phone | + [...] [place] | | | | | [address], [place] | [place] [address] | | | | | [address] | [phone] | | | | | [phone] | | | +--------+ + + + [...] Le | | | | | | [address] | | | | | | [place] | | | | | | [address] | | | | | | | | +--------+ + + + + | 10/06/ | Office | Pulmonology | Cameron Rodriguez, | | | 2018 | Visit | | MD Bri Le | | | | | | [place] [address] | | | | | | [place] | | | | | | [address] | | | | | | | | +--------+ + + + + as of this encounter Visit Diagnoses Not on filein this encounter"
--- OUTSIDE RECORDS SUMMARY | ~2018-08-29 | XMS | Encounter Summary ---
Demographics + + + | Address | [address] | | | [place] [address] | + + + | Home Phone | | + + + | Preferred Language | Unknown | + + + | Marital Status | Unknown | + + + | Zoroastrian Affiliation | 1013 | + + + | Race | Unknown | + + + | Ethnic Group | Unknown | + + + Author + + + | Author | [facility] | | | and [place] | + + + | Organization | [facility] | | | and [place] | + + + | Address | Unknown | + + + | Phone | Unavailable | + + + Support + + + + + | Name | Relationship | Address | Phone | + + + + + | Codi Guajardo | ECON | [address] | | | | | [address] | | | | | [address] | | + + + + + Care Team Providers + +------+ + | Care Chief Orthoptist Name | Role | Phone | + +------+ + | Son Salamanca | PCP | | + +------+ + Reason for Visit +--------+ + | Reason | Comments | +--------+ + | Other | fecal incontinece | +--------+ + Evaluate & Treat (Routine) +--------+--------+ + + + + | Status | Reason | Specialty | Diagnoses / | Referred By | Referred To | | | | | Procedures | Contact | Contact | +--------+--------+ + + + + | Closed | | Gastroenterol | Diagnoses | Cheikh, | Missy, | | | | oglinda | Full | DB Cline | Eddi Ryan MD | | | | | incontinence | [address], | | | | | of feces | [address] | [address] | | | | | Other | [address] | [place], | | | | | specified | [place], | [place] [address] | | | | | diseases of | [place] [address] | Phone: | | | | | anus and | Phone: | [phone] | | | | | rectum | [phone] | Fax: | | | | | Procedures | Fax: | [phone] | | | | | OFFICE VISIT | [phone] | | +--------+--------+ + + + + Encounter Details +--------+---------+ + + + | Date | Type | Department | Care Team | Description | +--------+---------+ + + + | 08/04/ | Office | [facility] | Noam Melgoza | Diarrhea, | | 2019 | Visit | GASTROENTEROLOGY | MD Ubaldo [address] | unspecified type | | | | [address] | [address] [place] | (Primary Dx); | | | | [address] [place], [place] | [place] [address] | Gastroesophageal | | | | [address] | [phone] | reflux disease, | | | | [phone] | | esophagitis presence | | | | | | not specified; Full | | | | | | incontinence of | | | | | | feces; ETOH abuse | +--------+---------+ + + + Social History [...] + + + | Blood Pressure | 100/62 | 08/04/20188 PST | + + + + | Pulse | 85 | 08/04/20188 PST | + + + + | Temperature | 36.4 C (97.6 F) | 08/04/20181347 PST | + + + + | Respiratory Rate | 16 | 08/04/2018 1348 PST | + + + + | Oxygen Saturation | 96% | 08/04/2018 1348 PST | + + + + | Inhaled Oxygen | - | - | | Concentration | | | + + + + | Weight | 84 kg (185 lb 3 oz) | 08/04/2018 1348 PST | + + + + | Height | - | - | + + + + | Body Mass Index | 29 | 08/04/2018 1348 PST | + + + + in this encounter Instructions Patient Instructions - Noam Melgoza MD - 08/04/2018 1430 PST1. Go dairy free for 2 weeks. Call my office if no improvement. Would then try Lomotil. 2. Ok to continue imodium for now 3. We will get your labs and colonoscopy results sent over 4. Limit your sugary drink consumption as this can cause diarrhea 5. Stool studies will be ordered in [place] 6. Follow up with me in 4 weeks in this encounter Progress Notes Toya Cruz RN - 08/04/2018 1430 PSTOrdered series of stool labs to [facility] Noam Anderson MD - 08/04/2018 1430 PSTFormatting of this note may be different from the original. Outpatient Gastroenterology Consult Note Date of Office Visit: 08/05/18 Referring Provider: DB Marcano [address] [place] [address] Providing Physician: Noam Melgoza MD. Chief Complaint: Other (fecal incontinece) Diarrhea History of Present Illness Serenity Demarco is a 43 y.o. 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 She reports this is a long-standing issue. She says it's been present for at least 2 years and probably much longer. The problem is progressively worsening. She endorses nocturnal diarrhea and has to wear a diaper at night. She has diarrhea 4-10 times per day. She has n ot noticed any association with a food group. She uses Imodium up to 8 tablets or 16 mg a d ay. It does slow the diarrhea down but her stools are never solid. She denies any blood in her stool. She denies any unintentional weight loss. She denies any stool studies. She h ad a colonoscopy last year that she says was normal. She drinks up to 15 beers on 2 days ou t of the week, the rest of the day she drinks about 2-3 beers. She doesn't notice any assoc iation between her alcohol consumption and her diarrhea. She also drinks a lot of ice tea a nd juice. She also drinks a lot of milk about 2 L at least a day. She denies any new medications. She denies any family history of inflammatory bowel disease or colon cancer. Endoscopic History Colonoscopy by Dr. Vega 11/05/2017 I reviewed this procedure note by Dr. Gleason. She was given propofol by their nurse anesthe tist. The scope was advanced to the cecum. The colonoscopy was noted as normal. The ileum was needed. She was given a 10 year recall. I do not see that any random biopsies were ob tained from the colon Review of Systems ROS A 12 point review of systems was conducted with the patient. Pertinent positives and negati ves listed per HPI Problem List Patient Active Problem List Diagnosis CHEST PAIN, PLEURITIC ASTHMA, EXTRINSIC ABNORMAL CHEST XRAY DYSPNEA ON EXERTION ACUTE KIDNEY FAILURE UNSPECIFIED Chronic obstructive pulmonary disease Depression Gastroparesis GERD (gastroesophageal reflux disease) Precordial pain Tobacco dependence Diarrhea Ischiorectal abscess Nausea Past Medical History Past Medical History: Diagnosis Date Acute insomnia Anxiety Asthma Bipolar 1 disorder ([facility]) COPD (chronic obstructive pulmonary disease) ([facility]) Decreased anal sphincter tone Degenerative disc disease, lumbar Diarrhea Fecal incontinence GERD (gastroesophageal reflux disease) Hemorrhoid Instability of right knee joint Internal derangement of knee Left knee pain Low back pain Right knee pain Right wrist injury Substance abuse ([facility]) Urinary incontinence Past Surgical History Past Surgical History: Procedure Laterality Date ABCESS DRAINAGE 01/14/2016 I&D rectal abscess. Discharge Diagnoses: Significant advanced left ischiorectal fosse absc ess status post incision and drainage. Hypertension. Hypokalemia uncertain etiology (resolve d). History of methamphetamine addiction. Hypertension. Gastroesophageal reflux. ~Ubaldo ryan MD [facility] ANTERIOR CRUCIATE LIGAMENT REPAIR 2015 APPENDECTOMY EYE SURGERY HERNIA REPAIR HYSTERECTOMY 2000 Retained ovaries STOMACH SURGERY Family History Family History Problem Relation Age of Onset Family history unknown: Yes Social History Social History Social History Marital status: Spouse name: N/A Number of children: N/A Years of education: N/A Social History Main Topics Smoking status: Current Every Day Smoker Packs/day: 0.75 Smokeless tobacco: Never Used Comment: Down to 3/4 PPD. Is slowly tapering down. Alcohol use Yes Comment: occ Drug use: Yes Types: Methamphetamines Comment: Former Methamphetamines user. /quit 04/04/17 Sexual activity: Not Asked Comment: Not on file Other Topics Concern None Social History Narrative None Allergies Allergies Allergen Reactions Tramadol Other (See [...] of breath albuterol-ipratropium 2.5-0.5 mg/3 mL SOLN ipratropium-albuterol 0.5 mg-3 mg(2.5 mg bas e)/3 mL nebulization soln benzonatate (TESSALON) 100 mg capsule bisacodyl (DULCOLAX) 5 mg EC tablet Take 5 mg by mouth Daily as needed for Constipation . buPROPion (WELLBUTRIN XL) 300 mg 24 hr tablet 1 tablet by mouth in the AM and 150 mg in the PM ergocalciferol (VITAMIN D-2) 50,000 units capsule Take 50,000 Units by mouth every 7 da ys. escitalopram (LEXAPRO) 20 mg tablet Take 20 mg by mouth every evening. fluticasone (FLOVENT HFA) 110 mcg/puff inhaler Inhale 2 puffs two times a day GABAPENTIN PO TABS 800 mg 1 tablet by mouth three daily hydrocortisone 1% ointment Apply 1 Application topically 2 times daily. loperamide (IMODIUM) 2 mg capsule lurasidone (LATUDA) 120 mg tablet Take 120 mg by mouth daily (with breakfast). Multiple Vitamins-Minerals (MULTIVITAMIN WITH MINERALS) tablet Take 1 tablet by mouth D aily. potassium 99 mg tablet Take 99 mg by mouth Daily. tiZANidine (ZANAFLEX) 4 mg tablet Take 4 mg by mouth 3 times daily as needed. No current facility-administered medications on file prior to visit. Physical Exam Vitals:BP 100/62 | Pulse 85 | Temp 36.4 C (97.6 F) (Temporal) | Resp 16 | Wt 84 kg (185 lb 3 oz) | SpO2 96% | BMI 29.00 kg/m General: This is a well-developed,well-nurished female in no apparent distress, alert and o riented x 3. Head: Reveals normocephalic, atraumatic Eyes: Sclera anicteric, normal conjunctiva Mouth: Oropharynx is clear without obstruction. No oral lesion. Lungs: Clear to auscultation without rales or wheezes. Cardiac: Reveals regular rate and rhythm with normal S1 and S2 and no murmurs, rubs or gall ops. Abdomen: Soft and mildly TTP in the RLQ without masses or organmegaly. No guarding or rebo und pain. Normoactive bowel sounds. RECTAL: mildly reduced sphincter tone, normal sensation, normal expulsion, no stool in the vault Extremities: Without cyanosis, clubbing or edema. Neuro: Awake, alert, oriented x3. Skin: Warm and dry, no erythematous rash. Labs Outside labs were reviewed from July 01, 2018 from [facility] in [place]. Sodium 139, potassium 4.3, glucose 152, creatinine 0.9, BUN 14, AST 28, ALT 42, alkaline ph osphatase 84, bilirubin 0.4, albumin 4.2, calcium 9.4 White blood cell count 7.1, hemoglobin 15.9, platelet count 333 Imaging No recent relevant imaging . Assessment and Plan This is a 43-year-old woman with chronic diarrhea and fecal incontinence. She has a histor y of alcohol and drug abuse, smoking, bipolar disorder, and an isheal rectal abscess. She had a normal colonoscopy one year ago but random biopsies were not obtained in the ileu m was not intubated. She has nocturnal diarrhea, but no other alarm features for her diarrhea. She is using maximal dose Imodium with persistent diarrhea.. There multiple different potential causes for her diarrhea. It could be related to her t. She drinks a lot of milk and consumes a lot of sugary drinks. We reviewed that lactose intolerance is very common and she should try going dairy free to see if there is any improvement. She will do this for 2 weeks and then contact my clinic. I also encouraged her to cut back on her sugary drinks consumption. Other potential causes could be inflammatory bowel disease such as small bowel Crohn's dise ase. Ulcerative colitis seems less likely given her reported normal colonoscopy one year ag o. Microscopic colitis remains in the differential as random biopsies were not obtained. Chronic infections or an unlikely cause of diarrhea, however she has never had stool studie s done so I recommend that she have these done to evaluate for C. diff,, and bacterial cause s of diarrhea, GERD, and also to check a fecal lactoferrin. I also recommended that she check a TTG IgA and IgG and a TSH. She would also benefit from cutting back on her alcohol consumption. She is drinking too m uch. The amount that she is consuming could cause diarrhea. Imodium seems to have lost its effect. Depending on her response to the dairy free diet, s he may need to go on Lomotil. She also has chronic right lower quadrant abdominal pain, we may want obtain a CT scan to e valuate for causes of this pain such as Crohn's disease. Her fecal incontinence is chronic. She has mild weakness of her sphincter tone. She has i ntact sensation and seems to be able to expel. I think greatest cause for her fecal inconti nence is that her stools are always liquid. I think she'll have significant improvement in her fecal incontinence with solidifying her stools. We discussed further workup with a anal rectal manometry study. She is not interested in this presently. Her GERD is well controlled right now so no further recommendations are made for this probl em. ICD-10-CM ICD-9-CM 1. Diarrhea, unspecified type R19.7 787.91 Culture, Stool Ova and Parasite Examination Giardia Ag, EIA, Stool Cryptosporidium Ag Clostridium difficile A and B EIA Lactoferrin, fecal, quantitative 2. Gastroesophageal reflux disease, esophagitis presence not specified K21.9 530.81 3. Full incontinence of feces R15.9 787.60 4. ETOH abuse F10.10 305.00 Follow up: Return in about 4 weeks (around 09/01/2018). CC: DB Marcano [address] [place] [address] DB [address] [place] [address] Portions of this chart may have been created with [employer] voice recognition software. Occasi onal wrong-word or [...] 10/06/ | Appointment | Pulmonology | Cameron Rodriguez | | | 2018 | | | MD [address] | | | | | | [place], [address] | | | | | | [place] | | | | | | [address] | | | | | | | | +--------+ + + + + | 10/06/ | Office | Pulmonology | Cameron Rodriguez, | | | 2018 | Visit | | MD [address] | | | | | | [place], [address] | | | | | | [place] | | | | | | [address] | | | | | | | | +--------+ + + + + + +--------+ + + | Name | Priori | Associated Diagnoses | Order Schedule | | | ty | | | + +--------+ + + | Culture, Stool | Routin | Diarrhea, | 1 Occurrences | | | e | unspecified type | starting 08/04/2018 | | | | | until 08/04/2019 | + +--------+ + + | Ova and Parasite Examination | Routin | Diarrhea, | Expected: | | | e | unspecified type | 08/04/2018, Expires: | | | | | 08/04/2019 | + +--------+ + + | Giardia Ag, EIA, Stool | Routin | Diarrhea, | Expected: 08/04/2018 | | | e | unspecified type | (Approximate), | | | | | Expires: 08/04/2019 | + +--------+ + + | Cryptosporidium Ag | Routin | Diarrhea, | Expected: 08/04/2018 | | | e | unspecified type | (Approximate), | | | | | Expires: 08/04/2019 | + +--------+ + + | Clostridium difficile A and B EIA | Routin | Diarrhea, | Expected: 08/04/2018 | | | e | unspecified type | (Approximate), | | | | | Expires: 08/05/2019 | + +--------+ + + | Lactoferrin, fecal, quantitative | Routin | Diarrhea, | Expected: 08/04/2018 | | | e | unspecified type | (Approximate), | | | | | Expires: 08/04/2019 | + +--------+ + + as of this encounter Visit Diagnoses + + | Diagnosis | + + | Diarrhea, unspecified type - Primary | + + | Gastroesophageal reflux disease, esophagitis presence not specified | + + | Full incontinence of feces | + + | ETOH abuse | + + | Alcohol abuse, unspecified | + +"
--- OUTSIDE RECORDS SUMMARY | ~2018-08-29 | XMS | Encounter Summary ---
Demographics + + + | Address | [address] | | | [place] [address] | + + + | Home Phone | | + + + | Preferred Language | Unknown | + + + | Marital Status | Unknown | + + + | Zoroastrianism Affiliation | 1013 | + + + | Race | Unknown | + + + | Ethnic Group | Unknown | + + + Author + + + | Author | [facility] | | | and [place] | + + + | Organization | [facility] | | | and [place] | + + + | Address | Unknown | + + + | Phone | Unavailable | + + + Support + + + + + | Name | Relationship | Address | Phone | + + + + + | Codi Guajardo | ECON | [address] | | | | | [address] | | | | | [address] | | + + + + + Care Team Providers + +------+ + | Care Rope Twisting Machine Operator Name | Role | Phone | [...] | follow up/ | [place], | [place] [address] | | | | | Full | [place] [address] | Phone: | | | | | incontinence | Phone: | [phone] | | | | | of feces | [phone] | Fax: | | | | | Other | Fax: | [phone] | | | | | specified | [phone] | | | | | | diseases [...] + + | 08/27/ | Office | [facility] | Noam Melgoza | Full incontinence of | | 2019 | Visit | GASTROENTEROLOGY | MD Ubaldo [address] | feces (Primary Dx); | | | | [address] [place] | [address] [place] | Lactose | | | | [address] [place], [place] | [place] [address] | intolerance; | | | | [address] | [phone] | Diarrhea, | | | | [phone] | | unspecified type; | | | [...] insomnia Anxiety Asthma 2008 Bipolar 1 disorder ([facility]) COPD (chronic obstructive pulmonary disease) ([facility]) 2008 Decreased anal sphincter tone Degenerative disc disease, lumbar Diarrhea Fecal incontinence GERD (gastroesophageal reflux disease) Hemorrhoid Instability of right knee joint Internal derangement of knee Left knee pain Low back pain Right knee pain Right wrist injury Substance abuse ([facility]) Urinary incontinence Past Surgical History Past Surgical History: Procedure Laterality Date ABCESS DRAINAGE 01/14/2016 I&D rectal abscess. Discharge Diagnoses: Significant advanced left ischiorectal fosse absc ess status post incision and drainage. Hypertension. Hypokalemia uncertain etiology (resolve d). History of methamphetamine addiction. Hypertension. Gastroesophageal reflux. ~Ubaldo rayn MD [facility] ANTERIOR CRUCIATE LIGAMENT REPAIR Left 2016 APPENDECTOMY [...] Follow-up on file. CC: DB Marcano [address] [place] [address] Portions of this chart may have been created with [employer] voice recognition software. Occasi onal wrong-word or [...] [place] | | | | | | [id number] | | | | | | | | +--------+ + + + + | 10/06/ | Office | Pulmonology | Cameron Rodriguez, | | | 2018 | Visit | | MD [address] | | | | | | [place] | | | | | | [place] | | | | | | [id number] | | | | | | | [...]
--- OUTSIDE RECORDS SUMMARY | ~2018-08-29 | XMS | Encounter Summary ---
Demographics + + + | Address | [address] | | | [place] [address] | + + + | Home Phone | | + + + | Preferred Language | Unknown | + + + | Marital Status | Unknown | + + + | Hoahaoism Affiliation | 1013 | + + + | Race | Unknown | + + + | Ethnic Group | Unknown | + + + Author + + + | Author | [facility] | | | and [place] | + + + | Organization | [facility] | | | and [place] | + + + | Address | Unknown | + + + | Phone | Unavailable | + + + Support + + + + + | Name | Relationship | Address | Phone | + + + + + | Codi Guajardo | ECON | [address] | | | | | [address] [place] | | | | | [address] | | + + + + + Care Team Providers + +------+ + | Care Real Estate Financial Analyst Name | Role | Phone | [...] | | | pulmonary | [address] | [place], Level | | | | | disease, | [address] | [place] | | | | | unspecified | [place], | [place], [place] | | | | | ([facility]) | [place] [address] | [address] Phone: | | | | | Procedures | Phone: | [phone] | | | | | [facility] WORKER CONSULT | [phone] | Fax: | | | | | DOS 08/26/18 | Fax: | [phone] | | | | | | [phone] | | +--------+--------+ + + + + Encounter Details +--------+---------+ + + + | Date | Type | Department | Care Team | Description | +--------+---------+ + + + | 08/26/ | Office | [facility] | Cameron Rodriguez, | Chronic obstructive | | 2018 | Visit | PULMONARY [address] | pulmonary disease, | | | | [place], | [place], [address] | unspecified COPD | | | | [place] [address] | [place], [place] | type (HCC) (Primary | | | | [phone] | [address] | Dx); Simple chronic | | | [...] in this encounter Instructions Patient Instructions - Camreon Rodriguez MD - 08/26/2018 0930 PDT DiagnosingCOPD [...] images of the lungs. Date Last Reviewed: 03/16/201619990777-0948 [employer] [place] [address], [place] [address]. All righ ts reserved. This information is [...] that she was previously evaluated by a liquor rectifier "many years ago". He told her that [...] insomnia Anxiety Asthma 2007 Bipolar 1 disorder ([facility]) COPD (chronic obstructive pulmonary disease) ([facility]) 2007 Decreased anal sphincter tone Degenerative disc disease, lumbar Diarrhea Fecal incontinence GERD (gastroesophageal reflux disease) Hemorrhoid Instability of right knee joint Internal derangement of knee Left knee pain Low back pain Right knee pain Right wrist injury Substance abuse ([facility]) Urinary incontinence Past Surgical History Past Surgical History: Procedure Laterality Date ABCESS DRAINAGE 01/14/2016 I&D rectal abscess. Discharge Diagnoses: Significant advanced left ischiorectal fosse absc ess status post incision and drainage. Hypertension. Hypokalemia uncertain etiology (resolve d). History of methamphetamine addiction. Hypertension. Gastroesophageal reflux. ~Ubaldo ryan MD [facility] ANTERIOR CRUCIATE LIGAMENT REPAIR Left 2016 APPENDECTOMY [...] emphysema. Home function tests performed 05/18/[address] [facility] show a forced vital capacity of 2.54, [...] the distant past been evaluated by a liquor rectifier who told her that she had COPD as opposed to asthma. The patient has a [id number] smoking history and cont inues to smoke [...] esop hagus. I have suggested to Debby Melrose that she discuss these findings further with Mr. Jermaine ceja. The patient definitely have symptoms consistent with chronic bronchitis. Intermittent whee zing was noted on exam. Pulmonary function test from 2014 showed evidence of moderately severe obstructive changes. I suggested to Debby Melrose that we obtain a PA/lateral chest x-ray given the patient's coug h and ongoing history of tobacco. This patient is potentially of lung cancer screening cand mayte. In addition repeat spirometry, lung volumes and [...] | | | | | [place] | | | | | | [id number] | | | | | | | | +--------+ + + + + | 10/06/ | Office | Pulmonology | Cameron Rodriguez, | | 2018 | Visit | | MD [address] | | | | | | [place], [place] | | | | | | [place] | | | | | | [address] | | | | | | | [...]
--- OUTSIDE RECORDS SUMMARY | ~2018-08-29 | XMS | Encounter Summary ---
Demographics + + + | Address | [address] | | | [place] [address] | + + + | Home Phone | | + + + | Preferred Language | Unknown | + + + | Marital Status | Unknown | + + + | Latter Day Affiliation | 1013 | + + + | Race | Unknown | + + + | Ethnic Group | Unknown | + + + Author + + + | Author | [facility] | | | and [place] | + + + | Organization | [facility] | | | and [place] | + + + | Address | Unknown | + + + | Phone | Unavailable | + + + Support + + + + + | Name | Relationship | Address | Phone | + + + + + | Codi Guajardo | ECON | [address] | | | | | [address] [place] | | | | | [address] | | + + + + + Care Team Providers + +------+ + | Care Snowboarding Instructor Name | Role | Phone | + [...] | | | | [address] [facility] | [place]. | | | | | [address] [place] | [place] [address] | | | | | [address] | | | | | | [phone] | | | +--------+ + + + [...] | 2018 | | | MD [facility] | | | | | | [place], [place] | | | | | | [place] | | | | | | [address] | | | | | | | | +--------+ + + + + | 10/06/ | Office | Pulmonology | RodriguezCameron, | | | 2018 | Visit | | MD [facility] | | | | | | [place], [place] | | | | | | [place] | | | | | | [address] | | | | | | | [...]
--- OUTSIDE RECORDS SUMMARY | ~2018-08-29 | XMS | Clinical Summary ---
Demographics + + + | Address | [address] | | | [place] [address] | + + + | Home Phone | | + + + | Preferred Language | Unknown | + + + | Marital Status | Unknown | + + + | Denominational Affiliation | 1013 | + + + | Race | Unknown | + + + | Ethnic Group | Unknown | + + + Author + + + | Author | [facility] | | | and [place] | + + + | Organization | [facility] | | | and [place] | + + + | Address | Unknown | + + + | Phone | Unavailable | + + + Support + + + + + | Name | Relationship | Address | Phone | + + + + + | Codi Guajardo | ECON | [address] | | | | | [address] [place] | | | | | [address] | | + + + + + Care Team Providers + +------+ + | Care Warp Trucker Name | Role | Phone | + [...] / | Disco | | quadrivalent | [id number] 60 mcg (15 | | | | 9/20 | ntinu | | (FLULAVAL | mcg x 4)/0.5 mL IM | | | | 19 | ed | | QUADRIVALENT) | suspension | | | | | | | vaccine injection | | | | | | | + + +-------+---------+------+------+-------+ | influenza | Fluvirin [id number] | | | | 02/1 | Disco [...] | 08/26/ | Office | | Cameron Rodriguze, | Chronic obstructive | | 2018 | [...] [place] | | | | | | [address] | | | | | | | | +--------+ + + + + | 10/06/ | Office | | Cameron Rodriguez, | | | 2018 | Visit | | MD Bri Le | | | | | | She[place], Level II | | | | | | [place] | | | | | | [address] | | | | | | | [...] | [employer] | MODA | [id number] | Medica | [phone] | | MEDICAID HMO | HEALTH [...] Self | [birth year] | Home: | [address] | | | al/Fam | | 1975 | [phone] | [place] [address] | | | erik | | | [phone] | | + +--------+ +--------+ + +
--- OUTSIDE RECORDS SUMMARY | ~2018-08-29 | XMS | Encounter Summary ---
Demographics + + + | Address | [address] | | | [place] [address] | + + + | Home Phone | | + + + | Preferred Language | Unknown | + + + | Marital Status | Unknown | + + + | Gnosticist Affiliation | 1013 | + + + | Race | Unknown | + + + | Ethnic Group | Unknown | + + + Author + + + | Author | [facility] | | | and [place] | + + + | Organization | [facility] | | | and [place] | + + + | Address | Unknown | + + + | Phone | Unavailable | + + + Support + + + + + | Name | Relationship | Address | Phone | + + + + + | Codi Guajardo | ECON | [address] | | | | | [address] [place] | | | | | [address] | | + + + + + Care Team Providers + +------+ + | Care Flexible Nanny Name | Role | Phone | + +------+ + | Son Salamanca | PCP | | + +------+ + Encounter Details +--------+ + + + + | Date | Type | Department | Care Team | Description | +--------+ + + + + | 08/18/ | Ancillary | [facility] | Provider, | | | 2019 | Orders | [facility] | MD [address] | | | | | IMAGING | Esther [place]IS | | | | | [phone] | [place] [address] | | +--------+ + + + + [...] | 2018 | | | MD Gregory [place] | | | | | | Sheree, Level II | | | | | | [place] | | | | | | [address] | | | | | | | | +--------+ + + + + | 10/06/ | Office | Pulmonology | Cameron Rodriguez, | | | 2018 | Visit | | MD Bri Le | | | | | | Sheree, Level II | | | | | | [place] | | | | | | [address] | | | | | | | | +--------+ + + + + as of this encounter Visit Diagnoses Not on filein this encounter"
--- OUTSIDE RECORDS SUMMARY | ~2018-08-29 | XMS | Encounter Summary ---
Demographics + + + | Address | [address] | | | [place] [address] | + + + | Home Phone | | + + + | Preferred Language | Unknown | + + + | Marital Status | Unknown | + + + | Taoism Affiliation | 1013 | + + + | Race | Unknown | + + + | Ethnic Group | Unknown | + + + Author + + + | Author | [facility] | | | and [place] | + + + | Organization | [facility] | | | and [place] | + + + | Address | Unknown | + + + | Phone | Unavailable | + + + Support + + + + + | Name | Relationship | Address | Phone | + + + + + | Codi Guajardo | ECON | [address] | | | | | [address] [place] | | | | | [address] | | + + + + + Care Team Providers + +------+ + | Care Sweater Designer Name | Role | Phone | + [...] [place] | | | | | [address], [place] | [place] [address] | | | | | [address] | [phone] | | | | | [phone] | | | +--------+ + + + [...] [place] | | | | | | [address] | | | | | | | | +--------+ + + + + | 10/06/ | Office | Pulmonology | Cameron Rodriguez, | | | 2018 | Visit | | MD Bri Le | | | | | | Sheree Level II | | | | | | [place] | | | | | | [address] | | | | | | | | +--------+ + + + + as of this encounter Visit Diagnoses Not on filein this encounter"
--- OUTSIDE RECORDS SUMMARY | ~2018-08-29 | XMS | Encounter Summary ---
Demographics + + + | Address | [address] | | | [place] [address] | + + + | Home Phone | | + + + | Preferred Language | Unknown | + + + | Marital Status | Unknown | + + + | Sabianist Affiliation | 1013 | + + + | Race | Unknown | + + + | Ethnic Group | Unknown | + + + Author + + + | Author | [facility] | | | and [place] | + + + | Organization | [facility] | | | and [place] | + + + | Address | Unknown | + + + | Phone | Unavailable | + + + Support + + + + + | Name | Relationship | Address | Phone | + + + + + | Codi Guajardo | ECON | [address] | | | | | [address] [place] | | | | | [address] | | + + + + + Care Team Providers + +------+ + | Care Scaffold Erector Name | Role | Phone | + [...] + | 08/26/ | Telephone | [facility] | Noam Melgoza | Appointment | | 2019 | | GASTROENTEROLOGY | MD Ubaldo [address] | | | | | [address] | [address] [place] | | | | | [address] [place], [place] | [place] [address] | | | | | [address] | [phone] | | | | | [phone] | | | +--------+ + + + [...] [place] | | | | | | [address] | | | | | | | | +--------+ + + + + | 10/06/ | Office | Pulmonology | Cameron Rodriguez, | | | 2018 | Visit | | MD Bri Le | | | | | | Sheree Level II | | | | | | [place] | | | | | | [address] | | | | | | | | +--------+ + + + + as of this encounter Visit Diagnoses Not on filein this encounter"
--- OUTSIDE RECORDS SUMMARY | ~2018-08-29 | XMS | Encounter Summary ---
Demographics + + + | Address | [address] | | | [place] [address] | + + + | Home Phone | | + + + | Preferred Language | Unknown | + + + | Marital Status | Unknown | + + + | Restorationism Affiliation | 1013 | + + + | Race | Unknown | + + + | Ethnic Group | Unknown | + + + Author + + + | Author | [facility] | | | and [place] | + + + | Organization | [facility] | | | and [place] | + + + | Address | Unknown | + + + | Phone | Unavailable | + + + Support + + + + + | Name | Relationship | Address | Phone | + + + + + | Codi Guajardo | ECON | [address] | | | | | [address] [place] | | | | | [address] | | + + + + + Care Team Providers + +------+ + | Care Air Brush Artist Name | Role | Phone | + [...] | incontinence | [address] [place], | | | | | of feces | [address] | [address] | | | | | Other | [address] | [place], | | | | | specified | [place], | [place] [address] | | | | | diseases of | [place] [address] | Phone: | | | | | anus and | Phone: | [phone] | | | | | rectum | [phone] | Fax: | | | | | Procedures | Fax: | [phone] | | | | | OFFICE VISIT | [phone] | | +--------+--------+ + + + + Encounter Details +--------+---------+ + + + | Date | Type | Department | Care Team | Description | +--------+---------+ + + + | 08/04/ | Office | [facility] | Noam Melgoza | Diarrhea, | | 2019 | Visit | GASTROENTEROLOGY | MD Ubaldo [address] | unspecified type | | | | [address] | [address] [place] | (Primary Dx); | | | | [address] [place], [place] | [place] [address] | Gastroesophageal | | | | [address] | [phone] | reflux disease, | | | | [phone] | | esophagitis presence | | | [...] 5. Stool studies will be ordered in [place] 6. Follow up with me in 4 weeks in this encounter Progress Notes Toya Cruz RN - 08/04/2018 1430 PSTOrdered series of stool labs to [facility] Noam Anderson MD - 08/04/2018 1430 PSTFormatting of this note may be different from the original. Outpatient Gastroenterology Consult Note Date of Office Visit: 08/05/18 Referring Provider: DB Marcano [address] [place] [address] Providing Physician: Noam Melogza MD. Chief Complaint: Other (fecal incontinece) Diarrhea [...] Acute insomnia Anxiety Asthma Bipolar 1 disorder ([facility]) COPD (chronic obstructive pulmonary disease) ([facility]) Decreased anal sphincter tone Degenerative disc disease, lumbar Diarrhea Fecal incontinence GERD (gastroesophageal reflux disease) Hemorrhoid Instability of right knee joint Internal derangement of knee Left knee pain Low back pain Right knee pain Right wrist injury Substance abuse ([facility]) Urinary incontinence Past Surgical History Past Surgical History: Procedure Laterality Date ABCESS DRAINAGE 01/14/2016 I&D rectal abscess. Discharge Diagnoses: Significant advanced left ischiorectal fosse absc ess status post incision and drainage. Hypertension. Hypokalemia uncertain etiology (resolve d). History of methamphetamine addiction. Hypertension. Gastroesophageal reflux. ~Ubaldo ryan MD [facility] ANTERIOR CRUCIATE LIGAMENT REPAIR 2015 APPENDECTOMY EYE [...] were reviewed from July 01, 2018 from [facility] path lab in [place]. Sodium 139, potassium 4.3, glucose 152, creatinine [...] weeks (around 09/01/2018). CC: DB Marcano [address] [place] [address] DB Marcano[address] [place] [address] Portions of this chart may have been created with [employer] voice recognition software. Occasi onal wrong-word or [...] | 2018 | | | MD [address] | | | | | | [place], Level [place] | | | | | | [place] | | | | | | [address] | | | | | | | | +--------+ + + + + | 10/06/ | Office | Pulmonology | Cameron Rodriguez, | | | 2018 | Visit | | MD [address] | | | | | | [place], Level [place] | | | | | | [place] | | | | | | [address] | | | | | | | [...]
--- OUTSIDE RECORDS SUMMARY | ~2018-08-29 | XMS | Encounter Summary ---
Demographics + + + | Address | [address] | | | [place] [address] | + + + | Home Phone | | + + + | Preferred Language | Unknown | + + + | Marital Status | Unknown | + + + | Mormonism Affiliation | 1013 | + + + | Race | Unknown | + + + | Ethnic Group | Unknown | + + + Author + + + | Author | [facility] | | | and [place] | + + + | Organization | [facility] | | | and [place] | + + + | Address | Unknown | + + + | Phone | Unavailable | + + + Support + + + + + | Name | Relationship | Address | Phone | + + + + + | Codi Guajardo | ECON | [address] | | | | | [address] [place] | | | | | [address] | | + + + + + Care Team Providers + +------+ + | Care Leather Stamper Name | Role | Phone | + [...] | | | | | [address] | [place] [address] | | | | | [address] | | | | | | [phone] | | | +--------+ + + + [...] [place] | | | | | | [address] | | | | | | | | +--------+ + + + + | 10/06/ | Office | Pulmonology | Cameron Rodriguez, | | | 2018 | Visit | | MD Bri Le | | | | | | [place] Level II | | | | | | [place] | | | | | | [address] | | | | | | | | +--------+ + + + + as of this encounter Visit Diagnoses Not on filein this encounter"
--- OUTSIDE RECORDS SUMMARY | ~2018-08-29 | XMS | Encounter Summary ---
Demographics + + + | Address | [address] | | | [place] [address] | + + + | Home Phone | | + + + | Preferred Language | Unknown | + + + | Marital Status | Unknown | + + + | Catholic Affiliation | 1013 | + + + | Race | Unknown | + + + | Ethnic Group | Unknown | + + + Author + + + | Author | [facility] | | | and [place] | + + + | Organization | [facility] | | | and [place] | + + + | Address | Unknown | + + + | Phone | Unavailable | + + + Support + + + + + | Name | Relationship | Address | Phone | + + + + + | Codi Guajardo | ECON | [address] | | | | | [place] [place] | | | | | [address] | | + + + + + Care Team Providers + +------+ + | Care Belt Polisher Name | Role | Phone | + [...] + + | 08/10/ | Telephone | [facility] | Noam Melgoza | LABS | | 2019 | | GASTROENTEROLOGY | MD Ubaldo [address] | | | | | [address] | [address] [place] | | | | | [address] [place], [place] | [place] [address] | | | | | [address] | [phone] | | | | | [phone] | | | +--------+ + + + [...] [place] | | | | | | [address] | | | | | | | | +--------+ + + + + | 10/06/ | Office | Pulmonology | Cameron Rodriguez, | | | 2018 | Visit | | MD Bri Le | | | | | | [place], [place] | | | | | | [place] | | | | | | [address] | | | | | | | [...]
--- OUTSIDE RECORDS SUMMARY | ~2018-08-29 | XMS | Encounter Summary ---
Demographics + + + | Address | [address] | | | [place] [address] | + + + | Home Phone | | + + + | Preferred Language | Unknown | + + + | Marital Status | Unknown | + + + | Spiritism Affiliation | 1013 | + + + | Race | Unknown | + + + | Ethnic Group | Unknown | + + + Author + + + | Author | [facility] | | | and [place] | + + + | Organization | [facility] | | | and [place] | + + + | Address | Unknown | + + + | Phone | Unavailable | + + + Support + + + + + | Name | Relationship | Address | Phone | + + + + + | Codi Guajardo | ECON | [address] | | | | | [address] [place] | | | | | [address] | | + + + + + Care Team Providers + +------+ + | Care Dry Pan Feeder Name | Role | Phone | + [...] Esther [place] | | | | | [phone] | [place] [address] | | +--------+ + + + + [...] | 2018 | | | MD Gregory [address] | | | | | | [place], [place] | | | | | | [place] | | | | | | [address] | | | | | | | | +--------+ + + + + | 10/06/ | Office | Pulmonology | Cameron Rodriguez, | | | 2018 | Visit | | MD Bri Le | | | | | | [place], Level [place] | | | | | | [place] | | | | | | [address] | | | | | | | | +--------+ + + + + as of this encounter Visit Diagnoses Not on filein this encounter"
--- OUTSIDE RECORDS SUMMARY | ~2018-08-29 | XMS | Clinical Summary ---
Demographics + + + | Address | [address] | | | [place] [address] | + + + | Home Phone | | + + + | Preferred Language | Unknown | + + + | Marital Status | Unknown | + + + | Latter-Day Affiliation | Unknown | + + + | Race | Unknown | + + + | Ethnic Group | Unknown | + + + Author + + + | Author | [facility] | + + + | Organization | [facility] | + + + | Address [...] Team Providers + +------+ + | Care Parts Counter Sales Person Name | Role | Phone | + +------+ + | Gucci [facility] | PP | | | Care [...] | 03/05 | | e | | 10686 units capsule | | | | 18 [...] +------+-------+ + | MEDICAID | [place] | [id number] | | | [address] | | | N | | | | [place], [place] | | | [place] | | | | [address] | | | LOADING MANAGER | | | | | + [...] | 1975 | [phone] | [place] [address] | | | erik | | | [address] | | + +--------+ +--------+ + +
--- OUTSIDE RECORDS SUMMARY | 2018-08-29 10:56 | XMS ---
PreManage Notification: DALY SPICER Security Brick Off Bearer Events No recent Security Events currently on file CRITERIA MET - Group Notification - [facility] - Has Care Guidelines - PDMP CARE PROVIDERS MAE BASURTO Primary Care 04/16/2017-Current PHONE: [phone] Giovanni Mendez DO Treatment Current PHONE: Unknown [facility] Other Current Orthopedic Surgery \T\ Fracture Clinic PHONE: Unknown Guidelines Source: [facility] Guidelines Date: 05/21/2017 Care Coordination: PATIENT IS IN SERVICES OF [employer] [phone] FOR DEPRESSIVE DISORDER. PATIENT HAS HAD MANY LAW ENFORCEMENT CONTACTS. PATIENT HAS HISTORY OF ETOH AND METHAMPHETAMINE ABUSE. Care History Substance Use/Overdose 08/25/2017 [facility] Care Recommendation: - Patient is currently being case managed by [facility] . Please contact Alessandra Cannon at [phone] during business hours if patient shows up to ED. - USE EXTREME CAUTION IN GIVING NARCOTICS TO THIS PATIENT. - Avoid Discharge Narcotic prescriptions if at all possible. Please use clinical judgement. This patient has had 5 or more Emergency Department visits in the last 12 months. Patient requires education on the scope and purpose of the ED as an acute care provider not a Primary Care Provider and should not be utilized for chronic conditions. If patient returns to ED please contact Community Health WorkerTessie at [phone]. These are guidelines and the provider should exercise clinical judgment when providing care. Social 05/20/2017 [facility] PATIENT HAS PENDING SSI BENEFITS THROUGH [employer]. E.D. VISIT COUNT (12 MO.) 2 [facility]. TOTAL 2 NOTE: Visits indicate total known visits. ED/UCC VISIT TRACKING (12 MO.) 08/29/2018 10:54 [facility] [place] TYPE: Emergency COMPLAINT: - FALL 09/26/2017 09:31 [place] TYPE: Emergency COMPLAINT: - POSS RECTAL BLEED DIAGNOSES: - Allergy status to narcotic agent status - Gastro-esophageal reflux disease without esophagitis - Anxiety disorder, unspecified - Unspecified hemorrhoids - Other moth exterminator (current) drug therapy INPATIENT VISIT TRACKING (12 MO.) No inpatient visits to display in this time frame [id number]
== END 2018-08-29 11:04 | disposition home or self-care (01) ==
LOC: ED 10:53
DX: M25.562 Pain in left knee (principal)

== ENCOUNTER 2018-11-17 10:24 | Emergency (ER) | payer OTHER ==
[~2018-11-17] VITALS: Ht 175.3 cm; Wt 82.5 kg
--- OUTSIDE RECORDS SUMMARY | ~2018-11-17 | XMS | Clinical Summary ---
Demographics + + + | Address | [address] | | | [place] [address] | + + + | Home Phone | | + + + | Preferred Language | Unknown | + + + | Marital Status | Unknown | + + + | Mandaen Affiliation | Unknown | + + + | Race | Unknown | + + + | Ethnic Group | Unknown | + + + Author + + + | Author | [facility] | + + + | Organization | [facility] | + + + | Address [...] Team Providers + +------+ + | Care Washer Meat Name | Role | Phone | + +------+ + | Gucci Ebony [facility] | PP | | | Care | | | + +------+ + Allergies + + [...] + + +-------+---------+------+------+-------+ | clonazePAM | Take 0.5 mg by mouth | | | | | Activ | | (KLONOPIN) 2 MG | 3 (three) times | | | | | e | | tablet | daily as needed for | | | | [...] | | | + + +-------+---------+------+------+-------+ | diclofenac | Take 75 mg by mouth | | | 06/2 | | Activ | | (VOLTAREN) 75 MG EC | 2 (two) times daily. | | | 02/02 | | e | | tablet | | | | 18 | | | + + +-------+---------+------+------+-------+ | vitamin D2, | Take 50,000 Units by | | | 2 | | Activ | | ergocalciferol, | mouth every 7 days. | | | 03/05 | | e | | [address] units capsule | | | | 18 | | | + + +-------+---------+------+------+-------+ | tiZANidine | Take 4 mg by mouth 3 | | | 07/ | | Activ | | (ZANAFLEX) 4 MG | (three) times daily | | | 20 | | e | | tablet | as needed. | | | 18 | | | + + +-------+---------+------+------+-------+ | Potassium 99 MG | Take 99 mg by mouth | | | | | Activ | | TABS | daily. | | | | | e | + + +-------+---------+------+------+-------+ | Multiple | Take 1 tablet by | | | | | Activ | | Vitamins-Minerals | mouth daily. | | | | | e | | (MULTIVITAMIN WITH | | | | | | | | MINERALS) tablet | | | | | | | + + +-------+---------+------+------+-------+ | acetaminophen | Take 500 mg by mouth | | | | | Activ | | (TYLENOL) 500 MG | every 6 (six) hours | | | | | e | | tablet | as needed for Pain. | | | | | | + [...] naLast | | Stress Test, 09/14/2015 ([facility]): Adenosine, images benign, | | LVEF 64%.ECG, 07/15/2015: NSR, 71bpm.Lab, 07/15/2015: Trop-T: | | <0.010, Liver enzymes NML, K: 4.0, BUN/Cr: 25/0.8, glu: 109 | | (non-fasting) WBC: 9.5, H/H: 12.9/37.5, | | plt: 279Lab, 08/30/2015: T Chol: 200, LDL-Chol: 108, HDL-Chol: 53, | | Tri | + + + +---+ | Chronic obstructive pulmonary disease (HCC) | | + +---+ + + | Overview: athma, emphysema and chronic bronchitis | + + + +---+ | Depression | | + +---+ Family History + + +------+ + | Medical History | Relation | Name | Comments | + + +------+ + | High cholesterol | Father | | | + + +------+ + | Hypertension | Father | | | + + +------+ + | Asthma | Son | | | + + +------+ + + +------+ + + | Relation | Name | Status | Comments | + +------+ + + | Brother | | Alive | | + +------+ + + | Daughter | | Alive | | + +------+ + + | Father | | Alive | HTN,Hyperlipidemia | + +------+ + + | Maternal Grandfather | | | accident | + +------+ + + | Maternal Grandmother | | Alive | unknown status | + +------+ + + | Mother | | Alive | healthy | + +------+ + + | Sister | | Alive | | + +------+ + + | Sister | | Alive | | + +------+ + + | Son | | Alive | | + +------+ + + | Son | | Alive | | + +------+ + + Social History [...] | | + +------+---+---+ + + | Tobacco Cessation: Ready to Quit: No; Counseling Given: Yes | | Comments: since 1985 (age 11) | + + + + +---------+ + | Alcohol Use | Drinks/We | oz/Week | Comments | | | ek | | | + + +---------+ + | Yes | 0 | 0.0 | occasional | | | Standard | | | [...] + + + | Blood Pressure | 90/62 | 01/06/2018 10:49 AM PDT | + + + + | Pulse | 84 | 01/06/2018 10:30 AM PDT | + + + + | Temperature | - | - | + + + + | Respiratory Rate | 17 | 09/25/2015 11:13 AM PDT | + + + + | Oxygen Saturation | 94% | 01/06/2018 10:30 AM PDT | + + + + | Inhaled Oxygen | - | - | | Concentration | | | + + + + | Weight | 84 kg (185 lb 1.6 | 01/06/2018 10:30 AM PDT | | | oz) | | + + + + | Height | 175.3 cm (5' 9") | 01/06/2018 10:30 AM PDT | + + + + | Body Mass Index | 27.33 | 01/06/2018 10:30 AM PDT | + + + + Plan of Treatment + [...] | | | | Screening (Pap) | 3 | | | + + + + + | Vaccine: Influenza | | | | | (Season Ended) | 9 | | | + + + + [...] + +--------+ +------+-------+ + | MEDICAID | [place] | [id number] | | | [address] | | | N | | | | [place], [place] | | | [place] | | | | [address] | | | COMMUNICATIONS ENGINEER | | | | | + +--------+ [...] Self | [birth year] | Home: | [address] | | | al/Fam | | 1975 | [phone] | [place] [address] | | | erik | | | [address] | | + +--------+ +--------+ + +
--- OUTSIDE RECORDS SUMMARY | ~2018-11-17 | XMS | Encounter Summary ---
Demographics + + + | Address | [address] | | | [place] [address] | + + + | Home Phone | | + + + | Preferred Language | Unknown | + + + | Marital Status | Unknown | + + + | Hoahaoism Affiliation | 1013 | + + + | Race | Unknown | + + + | Ethnic Group | Unknown | + + + Author + + + | Author | [facility] | | | and [place] | + + + | Organization | [facility] | | | and [place] | + + + | Address | Unknown | + + + | Phone | Unavailable | + + + Support + + + + + | Name | Relationship | Address | Phone | + + + + + | Codi Guajardo | ECON | [address] | | | | | [address] [place] | | | | | [address] | | + + + + + Care Team Providers + +------+ + | Care Postal Mail Carrier Name | Role | Phone | + +------+ + | Son Salamanca | PCP | | + +------+ + Encounter Details +--------+ + + + + | Date | Type | Department | Care Team | Description | +--------+ + + + + | 08/24/ | Abstract | RICHA SHAW | Provider, | | | 2019 | | GASTROENTEROLOGY | MD Deanna Hanna | | | | | [address] [facility] | [place]. | | | | | [address] [place] | [place] [address] | | | | | [address] | | | | | | [phone] | | | +--------+ + + + [...] +---+---+---+ + + | Comments: Down to 08/17 PPD. Is slowly tapering down. | + [...] on file | | + + + + + + + | Job Start Date | Occupation | Industry | + + + + | Not on file | Not on file | Not on file | + + + + + + + + | Travel History | Travel Start | Travel End | + + + + + + | No recent travel history available. | + + documented as of this encounter Plan of Treatment +--------+ + + + + | Date | Type | Specialty | Care Team | Description | +--------+ + + + + | 11/24/ | Appointment | Pulmonology | Cameron Rodriguez, | | | 2018 | | | MD [address] | | | | | | [place] | | | | | | [address] | | | | | | | | +--------+ + + + + | 11/24/ Office | Pulmonology | Cameron Rodriguez, | | | 2018 | Visit | | MD [address] | | | | | | [place] | | | | | | [address] | | | | | | | | +--------+ + + + + documented as of this encounter Procedures + +--------+ + + + | Procedure Name | Priori | Date/Time | Associated Diagnosis | Comments | | | ty | | | | + +--------+ + + + | EXTERNAL LAB: TSH | Routin | 08/19/2018 | | Results for this | | | e | | | procedure are in the | | | | | | results section. | + +--------+ + + + | TISSUE | Routin | 08/19/2018 | | Results for this | | TRANSGLUTAMINASE, | e | | | procedure are in the | | IGA | | | | results section. | + +--------+ + + + | TISSUE | Routin | 08/19/2018 | | Results for this | | TRANSGLUTAMINASE, | e | | | procedure are in the | | IGG | | | | results section. | + +--------+ + + + documented in this encounter Results Tissue Transglutaminase, IgA (08/19/2018) + +-------+ + + + | Component | Value | Ref Range | Performed | Pathologist | | | | | At | Signature | + +-------+ + + + | Tissue | <0.6 | 0 - 7 U/mL | | | | Transglutam | | | | | | inase IgA | | | | | + +-------+ + + + + + | Specimen | + + | Blood | + + Tissue Transglutaminase, IgG (08/19/2018) + +-------+ + + + | Component | Value | Ref Range | Performed | Pathologist | | | | | At | Signature | + +-------+ + + + | Tissue | <0.5 | 0 - 7 U/mL | | | | Transglutam | | | | | | inase IgG | | | | | + +-------+ + + + + + | Specimen | + + | Blood | + + External Lab: TSH (08/19/2018) + +-------+ + + + | Component | Value | Ref Range | Performed | Pathologist | | | | | At | Signature | + +-------+ + + + | TSH, | 3.62 | 0.27 - 4.2 | EXTERNAL | | | External | | | LAB | | + +-------+ + + + + + | Specimen | + + | Blood | + + + +---------+ + + | Performing | Address | City/State/Zipcode | Phone Number | | Organization | | | | + +---------+ + + | EXTERNAL LAB | | | | + +---------+ + + documented in this encounter Visit Diagnoses Not on filedocumented in this encounter"
--- OUTSIDE RECORDS SUMMARY | ~2018-11-17 | XMS | Encounter Summary ---
Demographics + + + | Address | [address] | | | [place] [address] | + + + | Home Phone | | + + + | Preferred Language | Unknown | + + + | Marital Status | Unknown | + + + | Sabianism Affiliation | Unknown | + + + | Race | Unknown | + + + | Ethnic Group | Unknown | + + + Author + + + | Author | [facility] | + + + | Organization | [facility] | + + + | Address | Unknown | + + + | Phone | Unavailable | + + + Care Team Providers + +------+ + | Care Attending Ambulatory Care Name | Role | Phone | + +------+ + PCP | Unavailable | + +------+ + Encounter Details +--------+ + + + + | Date | Type | Department | Care Team | Description | +--------+ + + + + | 06/04/ | Documentati | Neurology at | Kali Sarah, | | | 2010 | on | [facility] & | [address] | | | | | Jimmy [address] | [place], [place] | | | | | Jasson Johnson Mail Code: | [address] | | | | | [facility] | [phone] | | | | | Health [facility], | | | | | | [address] [place] [address], | | | | | | [place] [address] | | | | | | [phone] | | | +--------+ + + + [...] as of this encounter Plan of Treatment Not on filedocumented as of this encounter Visit Diagnoses Not on filedocumented in this encounter"
--- OUTSIDE RECORDS SUMMARY | ~2018-11-17 | XMS | Encounter Summary ---
Demographics + + + | Address | [address] | | | [place] [address] | + + + | Home Phone | | + + + | Preferred Language | Unknown | + + + | Marital Status | Unknown | + + + | Synagogue Affiliation | Unknown | + + + | Race | Unknown | + + + | Ethnic Group | Unknown | + + + Author + + + | Author | [facility] | + + + | Organization | [facility] | + + + | Address | Unknown | + + + | Phone | Unavailable | + + + Care Team Providers + +------+ + | Care Hyperion Administrator Name | Role | Phone | + +------+ + PCP | Unavailable | + +------+ + Reason for Referral Diagnostic Testing +--------+--------+ + + + + | Status | Reason | Specialty | Diagnoses / | Referred By | Referred To | | | | | Procedures | Contact | Contact | +--------+--------+ + + + + | Closed | | Clinical | Procedures | Cnl Eeg | Cnl Eeg Hrc | | | | Neurophysiolo | EEG | Hrc [address] | | | | gy | ROUTINE | [address] | [address] | | | | | | [place] | [facility] | | | | | | Road | Mailcode: | | | | | | Mailcode: | [address] | | | | | | [address] | [facility] | | | | | | [facility] | Research | | | | | | Research | [place] | | | | | | [place] | [place], [place] | | | | | | [place], [place] | [address] | | | | | | [address] | Phone: | | | | | | Phone: | [phone] | | | | | | [phone] | Fax: | | | | | | Fax: | [phone] | | | | | | [phone] | | +--------+--------+ + + + + Encounter Details +--------+ + + + + | Date | Type | Department | Care Team | Description | +--------+ + + + + | 06/03/ | Outside | Neurophysiology | Howard Vernon, | | | 2010 | Referral | EEG at [facility] [address] | [address] | | | | Order | [facility] | [address] | | | | | Road Mailcode: | [place] [address] | | | | | [address] [facility] | [phone] | | | | | [facility] | | | | | | [place], [place] | | | | | | [address] | | | | | | [phone] | | | +--------+ + + + [...] Not on filedocumented as of this encounter Procedures + +--------+ + + + | Procedure Name | Priori | Date/Time | Associated Diagnosis | Comments | | | ty | | | | + +--------+ + + + | EEG ROUTINE | Routin | 06/03/2011 | | Results for this | | | e | | | procedure are in the | | | | | | results section. | + +--------+ + + + documented in this encounter Results EEG ROUTINE (06/03/2011) + + | Specimen | + + | | + + + + + | Narrative | Performed At | + + + | Patient Name: Serenity Demarco Date of : 1975 | | | Date of Test: 06/03/2011 Place | | | of Service: [facility] Department: EEG [facility] - [id number] | | | ROUTINE EEG this is a routine EEG in a 36-year-old woman with | | | history of a seizure disorder. Medications include gabapentin, | | | Welbutrin, Geodon, Clonopin, clonidine. The background activity | | | in the awake state consists of a diffuse, central and posteriorly | | | dominant, irregular alpha rhythm ranging from nine to 14 Hz. This | | | blocks with eye opening. Intermixed in the central and anterior | | | background are lower voltage irregular beta rhythms which at times | | | are quite prominent. During drowsiness there are slow rolling eye | | | movements and there is attenuation of the posterior | | | rhythm. However, a well developed stage two sleep recording is not | | | achieved. Clinical interpretation: essentially normal awake and | | | drowsy EEG. There is an excess of beta activity, likely a medication | | | affect. There were no epileptiform discharges. Kali Sarah, | | | [facility] | | + + + documented in this encounter Visit Diagnoses Not on filedocumented in this encounter"
--- OUTSIDE RECORDS SUMMARY | ~2018-11-17 | XMS | Encounter Summary ---
Demographics + + + | Address | [address] | | | [place] [address] | + + + | Home Phone | | + + + | Preferred Language | Unknown | + + + | Marital Status | Unknown | + + + | Rastafarian Affiliation | Unknown | + + + | Race | Unknown | + + + | Ethnic Group | Unknown | + + + Author + + + | Author | [facility] | + + + | Organization | [facility] | + + + | Address | Unknown | + + + | Phone | Unavailable | + + + Care Team Providers + +------+ + | Care Director Long Term Care Name | Role | Phone | + +------+ + PCP | Unavailable | + +------+ + Encounter Details +--------+ + + + + | Date | Type | Department | Care Team | Description | +--------+ + + + + | 06/04/ | Documentati | Neurology at | Kali Sarah, | | | 2010 | on | [facility] & | [address] | | | | | Jimmy [address] | [place], [place] | | | | | Jasson Johnson Mail Code: | [address] | | | | | [facility] | [phone] | | | | | [facility], | | | | | | [address] [place] [address], | | | | | | [place] [address] | | | | | | [phone] | | | +--------+ + + + [...]
--- OUTSIDE RECORDS SUMMARY | ~2018-11-17 | XMS | Clinical Summary ---
Demographics + + + | Address | [address] | | | [place] [address] | + + + | Home Phone | | + + + | Preferred Language | Unknown | + + + | Marital Status | Unknown | + + + | Amish Affiliation | 1013 | + + + | Race | Unknown | + + + | Ethnic Group | Unknown | + + + Author + + + | Author | [facility] | | | and [place] | + + + | Organization | [facility] | | | and [place] | + + + | Address | Unknown | + + + | Phone | Unavailable | + + + Support + + + + + | Name | Relationship | Address | Phone | + + + + + | Codi Guajardo | ECON | [address] | | | | | [place] [place] | | | | | [address] | | + + + + + Care Team Providers + +------+ + | Care Browning Processor Name | Role | Phone | + +------+ + | Son Salamanca | PP | | + +------+ + Allergies + + + +--------+ + | Active Allergy | Reactions | Severity | Noted | Comments | | | | | Date | | + + + +--------+ + | Morphine Sulfate | Other (See Comments) | | | Turned blue | + + + +--------+ + | Tramadol | Other (See | High | | Reaction: Unknown | | | Comments), Itching | | | | + + + +--------+ + Medications + + + +---------+------+------+-------+ | Medication | Sig | Dispensed | Refills | Star | End | Statu | | | | | | t | Date | s | | | | | | Date | | | + + + +---------+------+------+-------+ | buPROPion | 1 tablet by mouth in | | 0 | 09/1 | | Activ | | (WELLBUTRIN XL) 300 | the AM and 150 mg | | | 3/20 | | e | | mg 24 hr tablet | in the PM | | | 12 | | | + + + +---------+------+------+-------+ | albuterol | 2 puffs by mouth | | 0 | 09/1 | | Activ | | (VENTOLIN HFA) 90 | every 4 hours as | | | 3/20 | | e | | mcg/puff inhaler | needed for shortness | | | 12 | | | | | of breath | | | | | | + + + +---------+------+------+-------+ | acetaminophen | Take 500 mg by mouth | | 0 | | | Activ | | (TYLENOL) 500 mg | every 6 hours as | | | | | e | | tablet | needed. | | | | | | + + + +---------+------+------+-------+ | escitalopram | Take 20 mg by mouth | | 0 | | | Activ | | (LEXAPRO) 20 mg | every evening. | | | | | e | | tablet | | | | | | | + + + +---------+------+------+-------+ | Multiple | Take 1 tablet by | | 0 | | | Activ | | Vitamins-Minerals | mouth Daily. | | | | | e | | (MULTIVITAMIN WITH | | | | | | | | MINERALS) tablet | | | | | | | + + + +---------+------+------+-------+ | potassium 99 mg | Take 99 mg by mouth | | 0 | | | Activ | | tablet | Daily. | | | | | e | + + + +---------+------+------+-------+ | tiZANidine | Take 4 mg by mouth 3 | | 0 | 07/ | | Activ | | (ZANAFLEX) 4 mg | times daily as | | | 20 | | e | | tablet | needed. | | | 18 | | | + + + +---------+------+------+-------+ | ergocalciferol | Take 50,000 Units by | | 0 | 06/2 | | Activ | | (VITAMIN D-2) 50,000 | mouth every 7 days. | | | 20 | | e | | units capsule | | | | 18 | | | + + + +---------+------+------+-------+ | hydrocortisone 1% | Apply 1 Application | | 0 | | | Activ | | ointment | topically 2 times | | | | | e | | | daily. | | | | | | + + + +---------+------+------+-------+ | lurasidone | Take 120 mg by mouth | | 0 | | | Activ | | (LATUDA) 120 mg | daily (with | | | | | e | | tablet | breakfast). | | | | | | + + + +---------+------+------+-------+ | benzonatate | | | 0 | 01/0 | | Activ | | (TESSALON) 100 mg | | | | 7/20 | | e | | capsule | | | | 19 | | | + + + +---------+------+------+-------+ | loperamide | | | 0 | 11/2 | | Activ | | (IMODIUM) 2 mg | | | | 0/20 | | e | | capsule | | | | 18 | | | + + + +---------+------+------+-------+ | clonazePAM | | | 0 | 02/0 | | Activ | | (KLONOPIN) 0.5 mg | | | | 8/20 | | e | | tablet | | | | 19 | | | + + + +---------+------+------+-------+ | omeprazole | | | 0 | 02/0 | | Activ | | (PRILOSEC) 40 MG | | | | 8/20 | | e | | capsule | | | | 19 | | | + + + +---------+------+------+-------+ | gabapentin | Take 600 mg by mouth | | 0 | 03/0 | | Activ | | (NEURONTIN) 600 MG | 2 times daily. | | | 6/20 | | e | | tablet | | | | 19 | | | + + + +---------+------+------+-------+ | trospium 20 MG | | | 0 | 03/0 | | Activ | | tablet | | | | 5/20 | | e | | | | | | 19 | | | + + + +---------+------+------+-------+ | | Take 3 mLs by | | 0 | | | Activ | | albuterol-ipratropiu | nebulization every 4 | | | | | e | | m 2.5-0.5 mg/3 mL | hours as needed for | | | | | | | SOLN | Wheezing or | | | | | | | | Shortness of Breath. | | | | | | + + + +---------+------+------+-------+ | fluticasone | Inhale 1 puff into | | 0 | | | Activ | | (FLOVENT HFA) 110 | the lungs 2 times | | | | | e | | mcg/puff inhaler | daily. 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 40yo | | WF, with chest discomfort, worsening over last several months. | | She states that she has just chest pain "most of that day and | | night", any type of activity including breathing increases her | | symptoms. She has chronic shortness of breath, she blames this | | on her asthma, COPD, smoking, but this also is worse with | | physical activity. She states that she wakes up quite | | diaphoretic, her heart pounding. Despite this, there is been no | | syncope. She has no prior history of coronary artery disease, | | myocardial infarction, congestive heart failure, congenital heart | | disease, rheumatic heart disease, or syncope. There is no | | history of diabetes, hypertension, or hyperlipidemia. No history | | of TIAs or strokes. She is unsure about her family history. | | Recently, abdominal surgeries. And unfortunately, she still | | smokes. A recent nuclear perfusion study is benign. Patient | | reassured that she does not have significant obstructive coronary | | disease. Smoking cessation strongly encouraged.Last Cath: | | naLast Echo: naLast Stress Test, 09/14/2015 ([facility]): | | Adenosine, images benign, LVEF 64%.ECG, 07/15/2015: NSR, | | 71bpm.Lab, 07/15/2015: Trop-T: <0.010, Liver enzymes NML, K: 4.0, | | BUN/Cr: 25/0.8, glu: 109 (non-fasting) | | WBC: 9.5, H/H: 12.9/37.5, plt: 279Lab, 08/30/2015: T Chol: 200, | | LDL-Chol: 108, HDL-Chol: 53, Tri | + + + + + | Gastroparesis | 03/07/2015 | + + + | GERD (gastroesophageal reflux disease) | 03/07/2015 | + + + | Tobacco dependence | 03/07/2015 | + + + | CHEST PAIN, PLEURITIC | | + + + | ASTHMA, EXTRINSIC | | + + + | ABNORMAL CHEST XRAY | | + + + | DYSPNEA ON EXERTION | | + + + | ACUTE KIDNEY FAILURE UNSPECIFIED | | + + + + + | Overview: ICD-10 Record update | + + Encounters +--------+ + + + + | Date | Type | Specialty | Care Team | Description | +--------+ + + + + | 08/27/ | Office | | Noam Melgoza | Full incontinence of | | 2019 | Visit | | MD Ubaldo | feces (Primary Dx); | | | | | | Lactose | | | | | | intolerance; | | | | | | Diarrhea, | | | | | | unspecified type; | | | | | | Constipation, | | | | | | unspecified | | | | | | constipation type | +--------+ + + + + | 08/27/ | Telephone | | Noam Melgoza | Other | | 2018 | | | MD Ubaldo | | +--------+ + + + + | 08/26/ | Office | | Cameron Rodriguez, | Chronic obstructive | | 2018 | Visit | | | pulmonary disease, | | | | | | unspecified COPD | | | | | | type (HCC) (Primary | | | | | | Dx); Simple chronic | | | | | | bronchitis (HCC); | | | | | | Need for | | | | | | pneumococcal | | | | | | vaccine; Cough | +--------+ + + + + | 08/26/ | Telephone | | Noam Melgoza | Appointment | | 2018 | | | MD Ubaldo | | +--------+ + + + + | 08/24/ | Abstract | | Provider, | | | 2019 | | | Jacques, MD | | +--------+ + + + + from Last 3 Months Immunizations + + + + | Name | Dates Previously Given | Next Due | + + + + | DTP (PED) | 10/04/1974, 1975, 1975 | | + + + + | INFLUENZA PF | 02/13/2016 | | | QUAD(PED/ADOL/ADULT) | | | | ,PSKT or VIAL | | | + + + + | INFLUENZA PF | 04/04/2015 | | | TRIVALENT(PED/ADOL/A | | | | DULT), PSKT | | | + + + + | MMR, 2 DOSE | 10/04/1974 | | | (PED/ADULT) | | | + + + + | PNEUMOCOCCAL | 08/26/2018, 03/28/2016 | | | CONJUGATE 13-VALENT | | | | (PCV13) | | | + + + + | POLIOVIRUS,OPV | 10/04/1974, 1973, 1973 | | | (LIVE) | | | + + + + | TDAP, (ADOL/ADULT) | 05/20/2010 | | + + + + Family History + + +------+ + | Medical History | Relation | Name | Comments | + + +------+ + | No known problems | Brother | | | + + +------+ + | * | Father | | unknown other than DM | + + +------+ + | No known problems | Mother | | | + + +------+ + | Brain cancer | Sister | | | + + +------+ + | No known problems | Sister | | | + + +------+ + + +------+--------+ + | Relation | Name | Status | Comments | + +------+--------+ + | Brother | | Alive | | + +------+--------+ + | Father | | Alive | | + +------+--------+ + | Mother | | Alive | | + +------+--------+ + | Sister | | Alive | | + +------+--------+ + | Sister | | Alive | | + +------+--------+ + Social History + +-------+ +--------+ + [...] | | + +---+---+---+ + + | Tobacco Cessation: Ready to Quit: No | | Comments: Down to 3/4 PPD. Is [...] recent travel history available. | + + Last Filed Vital Signs + + + + | Vital Sign | Reading | Time Taken | + + + + | Blood Pressure | 82/62 | 08/27/20181447 PDT | + + + [...] Height | 175.3 cm (5' 9") | 08/27/20181447 PDT | + + + + | Body Mass Index | 27.44 | 08/27/20181447 PDT | + + + + Plan of Treatment +--------+ + + + + | Date | Type | Specialty | Care Team | Description | +--------+ + + + + | 11/24/ | Appointment | | Cameron Rodriguez, | | | 2019 | | | MD [address] | | | | | | [place] | | | | | | [address] | | | | | | | | +--------+ + + + + | 11/24/ | Office | | Cameron Rodriguez, | | | 2018 | Visit | | MD [address] | | | | | | [place] | | | | | | [address] | | | | | | | | +--------+ + + + + + + + + + | Health Maintenance | Due Date | Last Done | Comments | + + + + + | Cervical Cancer | | | | | Screening (Pap) | 3 | | | + + + + + | Vaccine: | | 08/26/2018, 03/28/2016 | | | Pneumococcal 19-64 | 9 | | | | Highest Risk (2 of 3 | | | | | - PPSV23) | | | | + + + + + | Vaccine: Influenza | | 02/13/2016, 04/04/2015 | | | (Season Ended) | 9 | | | + + + + + | Vaccine: | | 05/20/2010, 10/04/1974, | | | Dtap/Tdap/Td (5 - | 0 | 1973, Additional history | | | Td) | | exists | | + + + + + Procedures + +--------+ + + + | Procedure Name | Priori | Date/Time | Associated Diagnosis | Comments | | | ty | | | | + +--------+ + + + | LABS - EXTERNAL SCAN | | 08/21/2018 | | Results for this | | | | 0:00 PST | | procedure are in the | | | | | | results section. | + +--------+ + + + | LABS - EXTERNAL SCAN | | 08/19/2018 | | Results for this | | | | 0:00 PST | | procedure are in the [...] section. | + +--------+ + + + from Last 3 Months Results LABS - EXTERNAL SCAN (08/21/2018 0:00 PST)Only the most recent of 2 results within the period is included. + + + | Narrative | Performed At | + + + | Ordered by an | | | unspecified provider. | | + + + External Lab: TSH (08/19/2018) + [...] | | | + +---------+ + + Tissue Transglutaminase, IgA (08/19/2018) + +-------+ + [...] + + | Blood | + + from Last 3 Months Insurance + +--------+ +--------+ +---------+--------+ | Payer | Benefi | Subscriber | Effect | Phone | Address | Type | | | t Plan | ID | belen | | | | | | / | | Dates | | | | | | Group | | | | | | + +--------+ +--------+ +---------+--------+ | [employer] | [employer] | [id number] | | [phone] | | Medica | | MEDICAID HMO | HEALTH | | [phone] | 1 | | id | | | MDCD | | esent | | | | | | [place]MO [place] | | | | | | + +--------+ +--------+ +---------+--------+ + +--------+ +--------+ + + | Guarantor Name | Accoun | Relation to | Date | Phone | Billing Address | | | t Type | Patient | of | | | | | | | | | | + +--------+ +--------+ + + | Serenity Demarco | Person | Self | [birth year] | [address] | | | al/Fam | | 1975 | [phone] | [place] [address] | | | erik | | | 1 (Home) | | + +--------+ +--------+ + + Advance Directives Patient has advance care planning documents on file. For more information, please contact:[facility] [place] [address]
--- OUTSIDE RECORDS SUMMARY | ~2018-11-17 | XMS | Clinical Summary ---
Demographics + + + | Address | [address] | | | [place] [address] | + + + | Home Phone | | + + + | Preferred Language | Unknown | + + + | Marital Status | Unknown | + + + | Moravian Affiliation | Unknown | + + + [...] Team Providers + +------+ + | Care Pe Teacher Name | Role | Phone | + +------+ + PP | Unavailable | + +------+ + Source Comments [facility] Allergies Not on File Medications Not on file Active Problems Not [...] recent travel history available. | + + Plan of Treatment + + + + + | Health Maintenance | Due Date | Last Done | Comments | + + + + + | Influenza (Flu) | | | | | vaccination (Season | 9 | | | | Ended) | | | | + + + + + Results Not on filefrom Last 3 Months"
--- OUTSIDE RECORDS SUMMARY | ~2018-11-17 | XMS | Encounter Summary ---
Demographics + + + | Address | [address] | | | [place] [address] | + + + | Home Phone | | + + + | Preferred Language | Unknown | + + + | Marital Status | Unknown | + + + | Bahai Affiliation | 1013 | + + + | Race | Unknown | + + + | Ethnic Group | Unknown | + + + Author + + + | Author | [facility] | | | and [place] | + + + | Organization | [facility] | | | and [place] | + + + | Address | Unknown | + + + | Phone | Unavailable | + + + Support + + + + + | Name | Relationship | Address | Phone | + + + + + | Codi Guajardo | ECON | [address] | | | | | [address] | | | | | [address] | | + + + + + Care Team Providers + +------+ + | Care Rf Design Engineer Name | Role | Phone | + [...] + | 08/26/ | Telephone | [facility] | Noam Melgoza | Appointment | | 2019 | | GASTROENTEROLOGY | MD Ubaldo [address] | | | | | [address] [place] | [address] [place] | | | | | [address] [place], [place] | [place] [address] | | | | | [address] | [phone] | | | | | [phone] | | | +--------+ + + + [...] [place] | | | | | | [address] | | | | | | | | +--------+ + + + + | 11/24/ | Office | Pulmonology | Cameron Rodriguez, | | | 2018 | Visit | | MD Bri ERWIN | | | | | | [place] | | | | | | [id number] | | | | | | | | +--------+ + + + + documented as of this encounter Visit Diagnoses Not on filedocumented in this encounter"
--- OUTSIDE RECORDS SUMMARY | ~2018-11-17 | XMS | Encounter Summary ---
Demographics + + + | Address | [address] | | | [place] [address] | + + + | Home Phone | | + + + | Preferred Language | Unknown | + + + | Marital Status | Unknown | + + + | Adventism Affiliation | 1013 | + + + | Race | Unknown | + + + | Ethnic Group | Unknown | + + + Author + + + | Author | [facility] | | | and [place] | + + + | Organization | [facility] | | | and [place] | + + + | Address | Unknown | + + + | Phone | Unavailable | + + + Support + + + + + | Name | Relationship | Address | Phone | + + + + + | Codi Guajardo | ECON | [address] | | | | | [address] [place] | | | | | [address] | | + + + + + Care Team Providers + +------+ + | Care Machine Or Machinery Mechanic Name | Role | Phone | + [...] | | | | [address] [facility] | Esther Johnson. | | | | | [address] [place] | [place] [address] | | | | | [address] | | | | | | [phone] | | | +--------+ + + + [...] [place] | | | | | | [address] | | | | | | | | +--------+ + + + + | 11/24/ Office | Pulmonology | Cameron Rodriguez, | | | 2018 | Visit | | MD [address] | | | | | | [place] | | | | | | [address] | | | | | | | [...]
--- OUTSIDE RECORDS SUMMARY | ~2018-11-17 | XMS | Encounter Summary ---
Demographics + + + | Address | [address] | | | [place] [address] | + + + | Home Phone | | + + + | Preferred Language | Unknown | + + + | Marital Status | Unknown | + + + | Restorationist Affiliation | 1013 | + + + | Race | Unknown | + + + | Ethnic Group | Unknown | + + + Author + + + | Author | [facility] | | | and [place] | + + + | Organization | [facility] | | | and [place] | + + + | Address | Unknown | + + + | Phone | Unavailable | + + + Support + + + + + | Name | Relationship | Address | Phone | + + + + + | Codi Guajardo | ECON | [address] | | | | | [address] [place] | | | | | [address] | | + + + + + Care Team Providers + +------+ + | Care Childcare Aide Name | Role | Phone | + +------+ + | Son Salamanca | PCP | | + +------+ + Reason for Visit +--------+ + | Reason | Comments | +--------+ + | Other | | +--------+ + Encounter Details +--------+ + + + + | Date | Type | Department | Care Team | Description | +--------+ + + + + | 08/27/ | Telephone | [facility] | Ericka Melgozarick | Other | | 2019 | | GASTROENTEROLOGY | MD Ubaldo [address] | | | | | [address] [place] | [address] [place] | | | | | [address] [place], [place] | [place] [address] | | | | | [address] | [phone] | | | | | [phone] | | | +--------+ + + + [...] [place] | | | | | | [address] | | | | | | | | +--------+ + + + + | 11/24/ | Office | Pulmonology | Cameron Rodriguez, | | | 2018 | Visit | | MD Bri [address]WIN | | | | | | [place] | | | | | | [address] | | | | | | | | +--------+ + + + + documented as of this encounter Visit Diagnoses Not on filedocumented in this encounter"
--- OUTSIDE RECORDS SUMMARY | ~2018-11-17 | XMS | Encounter Summary ---
Demographics + + + | Address | [address] | | | [place] [address] | + + + | Home Phone | | + + + | Preferred Language | Unknown | + + + | Marital Status | Unknown | + + + | Orthodox Affiliation | 1013 | + + + | Race | Unknown | + + + | Ethnic Group | Unknown | + + + Author + + + | Author | [facility] | | | and [place] | + + + | Organization | [facility] | | | and [place] | + + + | Address | Unknown | + + + | Phone | Unavailable | + + + Support + + + + + | Name | Relationship | Address | Phone | + + + + + | Codi Guajardo | ECON | [address] | | | | | [address] [place] | | | | | [address] | | + + + + + Care Team Providers + +------+ + | Care Toy Packer Name | Role | Phone | + [...] | follow up/ | [place], | [place] [address] | | | | | Full | [place] [address] | Phone: | | | | | incontinence | Phone: | [phone] | | | | | of feces | [phone] | Fax: | | | | | Other | Fax: | [phone] | | | | | specified | [phone] | | | | | | diseases [...] + + | 08/27/ | Office | [facility] | Noam Melgoza | Full incontinence of | | 2019 | Visit | GASTROENTEROLOGY | MD Ubaldo [address] | feces (Primary Dx); | | | | [address] [place] | [address] [place] | Lactose | | | | [address] [place], [place] | [place] [address] | intolerance; | | | | [address] | [phone] | Diarrhea, | | | | [phone] | | unspecified type; | | | [...] + + documented as of this encounter Last Filed Vital [...] 1448 PDT | + + + + documented in this encounter Progress Notes Noam Melgoza MD - 08/27/2018 1500 PDTFormatting of this note might be different fro m the original. Gastroenterology Clinic Progress Note Date [...] insomnia Anxiety Asthma 2007 Bipolar 1 disorder ([facility]) COPD (chronic obstructive pulmonary disease) ([facility]) 2007 Decreased anal sphincter tone Degenerative disc disease, lumbar Diarrhea Fecal incontinence GERD (gastroesophageal reflux disease) Hemorrhoid Instability of right knee joint Internal derangement of knee Left knee pain Low back pain Right knee pain Right wrist injury Substance abuse ([facility]) Urinary incontinence Past Surgical History Past Surgical History: Procedure Laterality Date ABCESS DRAINAGE 01/14/2016 I&D rectal abscess. Discharge Diagnoses: Significant advanced left ischiorectal fosse absc ess status post incision and drainage. Hypertension. Hypokalemia uncertain etiology (resolve d). History of methamphetamine addiction. Hypertension. Gastroesophageal reflux. ~Ubaldo ryan MD [facility] ANTERIOR CRUCIATE LIGAMENT REPAIR Left 2016 APPENDECTOMY EYE SURGERY HERNIA REPAIR HYSTERECTOMY 2000 Retained ovaries Allergies Allergies Allergen Reactions Tramadol [...] atraumatic Eyes: Sclera anicteric, normal conjunctiva Mouth: O ropharynx is clear without obstruction. No oral lesion. [...] No Follow-up on file. CC: DB Marcano [address] [place] [address] [facility] [place] [address] Portions of this chart may have been created with [employer] voice recognition software. Occasi onal wrong-word or sound-alike substitutions may have occurred due to the inherent benitez itations of voice recognition software. Please read the chart carefully and recognize, using context, where these substitutions have occurred documented in this encounter Plan of Treatment +--------+ + + + + | Date | Type | Specialty | Care Team | Description | +--------+ + + + + | 11/24/ | Appointment | Pulmonology | Cameron Rodriguez, | | | 2018 | | | MD Bri ERWIN | | | | | | [place] | | | | | | [address] | | | | | | | | +--------+ + + + + | 11/24/ | Office | Pulmonology | Cameron Rodriguez, | | | 2018 | Visit | | MD Bri ERWIN | | | | | | [place] | | | | | | [address] | | | | | | | [...] + + documented in this encounter Results LABS - EXTERNAL SCAN (08/21/2018 0:00 PST) + + + | Narrative | Performed At | + + + | Ordered by an | | | unspecified provider. | | + + + LABS - EXTERNAL SCAN (08/19/2018 0:00 PST) + + + | Narrative | Performed At | + + + | Ordered by an | | | unspecified provider. 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
--- OUTSIDE RECORDS SUMMARY | ~2018-11-17 | XMS | Encounter Summary ---
Demographics + + + | Address | [address] | | | [place] [address] | + + + | Home Phone | | + + + | Preferred Language | Unknown | + + + | Marital Status | Unknown | + + + | Jew Affiliation | 1013 | + + + | Race | Unknown | + + + | Ethnic Group | Unknown | + + + Author + + + | Author | [facility] | | | and [place] | + + + | Organization | [facility] | | | and [place] | + + + | Address | Unknown | + + + | Phone | Unavailable | + + + Support + + + + + | Name | Relationship | Address | Phone | + + + + + | Codi Guajardo | ECON | [address] | | | | | [address] [place] | | | | | [address] | | + + + + + Care Team Providers + +------+ + | Care Motor Vehicles Inspector Name | Role | Phone | [...] [place] | | | | | [address] [place], [place] | [place] [address] | | | | | [address] | [phone] | | | | | [phone] | | | +--------+ + + + [...] [place] | | | | | | [address] | | | | | | | | +--------+ + + + + | 11/24/ | Office | Pulmonology | Cameron Rodriguez, | | | 2018 | Visit | | MD Bri [address]WIN | | | | | | [place] | | | | | | [address] | | | | | | | | +--------+ + + + + documented as of this encounter Visit Diagnoses Not on filedocumented in this encounter"
--- OUTSIDE RECORDS SUMMARY | ~2018-11-17 | XMS | Encounter Summary ---
Demographics + + + | Address | [address] | | | [place] [address] | + + + | Home Phone | | + + + | Preferred Language | Unknown | + + + | Marital Status | Unknown | + + + | Faith Affiliation | 1013 | + + + | Race | Unknown | + + + | Ethnic Group | Unknown | + + + Author + + + | Author | [facility] | | | and [place] | + + + | Organization | [facility] | | | and [place] | + + + | Address | Unknown | + + + | Phone | Unavailable | + + + Support + + + + + | Name | Relationship | Address | Phone | + + + + + | Codi Guajardo | ECON | [address] | | | | | [address] [place] | | | | | [address] | | + + + + + Care Team Providers + +------+ + | Care Insurance Processing Clerk Name | Role | Phone | [...] | follow up/ | [place], | [place] [address] | | | | | Full | [place] [address] | Phone: | | | | | incontinence | Phone: | [phone] | | | | | of feces | [phone] | Fax: | | | | | Other | Fax: | [phone] | | | | | specified | [phone] | | | | | | diseases [...] + + | 08/27/ | Office | [facility] | Noam Melgoza | Full incontinence of | | 2019 | Visit | GASTROENTEROLOGY | MD Ubaldo [address] | feces (Primary Dx); | | | | [address] [place] | [address] [place] | Lactose | | | | [address] [place], [place] | [place] [address] | intolerance; | | | | [address] | [phone] | Diarrhea, | | | | [phone] | | unspecified type; | | | [...] insomnia Anxiety Asthma 2007 Bipolar 1 disorder ([facility]) COPD (chronic obstructive pulmonary disease) ([facility]) 2007 Decreased anal sphincter tone Degenerative disc disease, lumbar Diarrhea Fecal incontinence GERD (gastroesophageal reflux disease) Hemorrhoid Instability of right knee joint Internal derangement of knee Left knee pain Low back pain Right knee pain Right wrist injury Substance abuse ([facility]) Urinary incontinence Past Surgical History Past [...] No Follow-up on file. CC: DB Marcano [address] [place] [address] [facility] [place] [address] Portions of this chart may have been created with [employer] voice recognition software. Occasi onal wrong-word or [...] [place] | | | | | | [address] | | | | | | | | +--------+ + + + + | 11/24/ | Office | Pulmonology | Cameron Rodriguez, | | | 2018 | Visit | | MD Bri ERWIN | | | | | | [place] | | | | | | [address] | | | | | | | [...]
--- OUTSIDE RECORDS SUMMARY | ~2018-11-17 | XMS | Clinical Summary ---
Demographics + + + | Address | [address] | | | [place] [address] | + + + | Home Phone | | + + + | Preferred Language | Unknown | + + + | Marital Status | Unknown | + + + | Tenriism Affiliation | Unknown | + + + | Race | Unknown | + + + | Ethnic Group | Unknown | + + + Author + + + | Author | [facility] [employer] [facility] | + + + | Organization | [facility] [employer] [facility] | + + + | Address [...] Team Providers + +------+ + | Care Crosstie Inspector Name | Role | Phone | + +------+ + | [facility] | PP | | | Care [...] | 03/05 | | e | | [address] units capsule | | | | 18 [...] +------+-------+ + | MEDICAID | EASTER | [id number] | | | [address] | | | N | | | | [place], [place] | | | [place] | | | | [address] | | | DISTANCE LEARNING TECHNICIAN | | | | | + +--------+ [...] | 1975 | [phone] | [place] [address] | | | erik | | | [phone] | | + +--------+ +--------+ + +
--- OUTSIDE RECORDS SUMMARY | ~2018-11-17 | XMS | Encounter Summary ---
Demographics + + + | Address | [address] | | | [place] [address] | + + + | Home Phone | | + + + | Preferred Language | Unknown | + + + | Marital Status | Unknown | + + + | Taoism Affiliation | Unknown | + + + | Race | Unknown | + + + | Ethnic Group | Unknown | + + + Author + + + | Author | [facility] | + + + | Organization | [facility] | + + + | Address | Unknown | + + + | Phone | Unavailable | + + + Care Team Providers + +------+ + | Care Rec Therapist Name | Role | Phone | [...] | | | | | | Jagjit Delphos | [facility] | | | | | | Road | Mailcode: | | | | | | Mailcode: | [address] | | | | | | [address] | [place] | | | | | | [place] | Research | | | | | | Research | [place] | | | | | | [place] | [place], [place] | | | | | | [place], [place] | [address] | | | | | | [address] | Phone: | | | | | | Phone: | [phone] | | | | | | [phone] | Fax: | | | | | | Fax: | [phone] | | | | | | [phone] | | +--------+--------+ + + + + Encounter Details +--------+ + + + + | Date | Type | Department | Care Team | Description | +--------+ + + + + | 06/03/ | Outside | Neurophysiology | Howard Vernon, | | | 2010 | Referral | EEG at [facility] [address] | DB VERNON | | | | Order | [facility] | [address] | | | | | Road Mailcode: | [place] [address] | | | | | [address] [place] | [phone] | | | | | [facility] | | | | | | [place], [place] | | | | | | [address] | | | | | | [phone] | | | +--------+ + + + [...] 06/03/2011 Place | | | of Service: [facility] Department: EEG [facility] - [id number] | | | ROUTINE EEG this is [...]
--- OUTSIDE RECORDS SUMMARY | ~2018-11-17 | XMS | Clinical Summary ---
Demographics + + + | Address | [address] | | | [place] [address] | + + + | Home Phone [...] Team Providers + +------+ + | Care Rn Nicu Name | Role | Phone | + +------+ + PP | Unavailable | + +------+ + Source Comments MAN[facility] is fully live [facility] Allergies Not on File Medications Not [...]
--- OUTSIDE RECORDS SUMMARY | ~2018-11-17 | XMS | Encounter Summary ---
Demographics + + + | Address | [address] | | | [place] [address] | + + + | Home Phone | | + + + | Preferred Language | Unknown | + + + | Marital Status | Unknown | + + + | Christian Affiliation | 1013 | + + + | Race | Unknown | + + + | Ethnic Group | Unknown | + + + Author + + + | Author | [facility] | | | and [place] | + + + | Organization | [facility] | | | and [place] | + + + | Address | Unknown | + + + | Phone | Unavailable | + + + Support + + + + + | Name | Relationship | Address | Phone | + + + + + | Codi Guajardo | ECON | [address] | | | | | [place] [place] | | | | | [address] | | + + + + + Care Team Providers + +------+ + | Care Flexographic Printing Machinist Name | Role | Phone | + [...] | | obstructive | [address] | | | | | pulmonary | [place] | [place], | | | | | disease, | [address] [address] | [place] [address] | | | | | unspecified | [place], | Phone: | | | | | ([facility]) | [place] [address] | [phone] | | | | | Procedures | Phone: | Fax: | | | | | APPEALS WRITER CONSULT | [phone] | [phone] | | | | | DOS 08/26/18 | Fax: | | | | | | | [phone] | | +--------+--------+ + + + + Encounter Details +--------+---------+ + + + | Date | Type | Department | Care Team | Description | +--------+---------+ + + + | 08/26/ | Office | [facility] | Cameron Rodriguez, | Chronic obstructive | | 2019 | Visit | PULMONARY [address] | MD [address] | pulmonary disease, | | | | [place], | [place], [place] | unspecified COPD | | | | [place] [address] | [address] | type (HCC) (Primary | | | | [phone] | | Dx); Simple chronic | | [...] 08/26/2018918 PDT | + + + + documented in this encounter Patient Instructions Patient Instructions Cameron Rodriguez MD - 08/26/2018 9:30 PDT DiagnosingCOPD Your healthcare provider will use [...] images of the lungs. Date Last Reviewed: 03/16/201619998209-6364 [employer] [place] [address]. All righ ts reserved. This information is not intended as a substitute for professional medical care. Always follow your healthcare professional's instructions. documented in this encounter Progress Notes Cameron Rodriguez MD - 08/26/2018 0930 PDT Pulmonary Consult Note 08/26/2018 HPI Serenity Demarco is a 43 y.o. female patient of DB Marcano here today for evalua tion of possible COPD. Ms. Demarco believes that she was previously evaluated by a referral and information aide "many years ago". He told her that [...] rescue inhaler, Ventolin, 3 times a day. Lois holman are using their albuterol/ipratropium nebulizer with 2 [...] insomnia Anxiety Asthma 2007 Bipolar 1 disorder ([facility]) COPD (chronic obstructive pulmonary disease) ([facility]) 2007 Decreased anal sphincter tone Degenerative disc disease, lumbar Diarrhea Fecal incontinence GERD (gastroesophageal reflux disease) Hemorrhoid Instability of right knee joint Internal derangement of knee Left knee pain Low back pain Right knee pain Right wrist injury Substance abuse ([facility]) Urinary incontinence Past Surgical History [...] SURGERY HERNIA REPAIR HYSTERECTOMY 2000 Retained ovaries Family History: Family History Problem [...] emphysema. Home function tests performed 05/18/15 at [facility] show a forced vital capacity of [...] the distant past been evaluated by a referral and information aide who told her that she had COPD as opposed to asthma. The patient has a 56-wljf-attl smoking history and cont inues to smoke [...] distal esop hagus. I have suggested to Ms. Demarco that she discuss these findings further with Mr. Dean brenna. The patient definitely have symptoms consistent with chronic bronchitis. Intermittent whee zing was noted on exam. Pulmonary function test from 2014 showed evidence of moderately severe obstructive changes. I suggested to Ms. Demarco that we obtain a PA/lateral chest x-ray given the patient's coug h and ongoing history of tobacco. This patient is potentially of lung cancer screening cand cataumette. In addition repeat spirometry, lung volumes and [...] dread esophageal abnormalities to DB Marcano. CC: Son Max, PA documented in this encounter Plan of Treatment +--------+ + + + + | Date | Type | Specialty | Care Team | Description | +--------+ + + + + | 11/24/ | Appointment | Pulmonology | Cameron Rodriguez, | | | 2018 | | | MD Bri ERWIN | | | | | | [place] | | | | | | [address] | | | | | | | | +--------+ + + + + | 11/24/ | Office | Pulmonology | Cameron Rodriguez, | | | 2018 | Visit | | MD Bri [address]WIN | | | | | | [place] | | | | | | [address] | | | | | | | [...] | 08/26/2019 | + +--------+ + + documented as of this encounter Procedures + +--------+ + + + | Procedure Name | Priori | Date/Time | Associated Diagnosis | Comments | | | ty | | | | + +--------+ + + + | DIAGNOSTIC REPORT - | | 05/18/2015 | | Results for this | | EXTERNAL SCAN | | 0:00 PST | | procedure are in the | | | | | | results section. | + +--------+ + + + documented in this encounter Results DIAGNOSTIC REPORT - EXTERNAL SCAN (05/18/2015 0:00 PST) + + + | Narrative | Performed At | + + + | Ordered by an | | | unspecified provider. | | + + + documented in this encounter Visit Diagnoses + + | Diagnosis | + + | Chronic obstructive pulmonary disease, unspecified COPD type (HCC) - Primary | + + | Simple chronic bronchitis (HCC) Simple chronic bronchitis | + + | Need for pneumococcal vaccine Need for prophylactic vaccination against streptococcus | | pneumoniae (pneumococcus) | + + | Cough | + + documented in this encounter
--- OUTSIDE RECORDS SUMMARY | ~2018-11-17 | XMS | Clinical Summary ---
Demographics + + + | Address | [address] | | | [place] [address] | + + + | Home Phone | | + + + | Preferred Language | Unknown | + + + | Marital Status | Unknown | + + + | Christianity Affiliation | 1013 | + + + | Race | Unknown | + + + | Ethnic Group | Unknown | + + + Author + + + | Author | [facility] | | | and [place] | + + + | Organization | [facility] | | | and [place] | + + + | Address | Unknown | + + + | Phone | Unavailable | + + + Support + + + + + | Name | Relationship | Address | Phone | + + + + + | Codi Guajardo | ECON | [address] | | | | | [address] [place] | | | | | [address] | | + + + + + Care Team Providers + +------+ + | Care Offset Press Operator Helper Name | Role | Phone [...] [place] | | | | | | [address] | | | | | | | | +--------+ + + + + | 11/24/ | Office | | Cameron Rodriguez, | | | 2018 | Visit | | MD Bri [address]WIN | | | | | | [place] | | | | | | [address] | | | | | | | [...] | [employer] | [employer] | [id number] | | [phone] | | Medica | [...] | 1975 | [phone] | [place] [address] | | | erik | | | 1 (Home) | | + +--------+ +--------+ + + Advance Directives Patient has advance care planning documents on file. For more information, please contact:[facility] [place] [address]
--- OUTSIDE RECORDS SUMMARY | ~2018-11-17 | XMS | Encounter Summary ---
Demographics + + + | Address | [address] | | | [place] [address] | + + + | Home Phone | | + + + | Preferred Language | Unknown | + + + | Marital Status | Unknown | + + + | Christianity Affiliation | 1013 | + + + | Race | Unknown | + + + | Ethnic Group | Unknown | + + + Author + + + | Author | [facility] | | | and [place]don[place] | + + + | Organization | [facility] | | | and [place]don[place] | + + + | Address | Unknown | + + + | Phone | Unavailable | + + + Support + + + + + | Name | Relationship | Address | Phone | + + + + + | Codi Guajardo | ECON | [address] | | | | | [address] | | | | | [address] | | + + + + + Care Team Providers + +------+ + | Care Air Export Agent Name | Role | Phone | + [...] + | 08/26/ | Telephone | [facility] | Noam Melgoza | Appointment | | 2019 | | GASTROENTEROLOGY | MD U[address] | | | | | [address] [place] | [address] [place] | | | | | [address] [place], [place] | [place] [address] | | | | | [address] | [phone] | | | | | [phone] | | | +--------+ + + + [...] [place] | | | | | | [address] | | | | | | | | +--------+ + + + + | 11/24/ | Office | Pulmonology | Cameron Rodriguez, | | | 2018 | Visit | | MD Bri ERWIN | | | | | | [place] | | | | | | [id number] | | | | | | | | +--------+ + + + + documented as of this encounter Visit Diagnoses Not on filedocumented in this encounter"
--- OUTSIDE RECORDS SUMMARY | ~2018-11-17 | XMS | Encounter Summary ---
Demographics + + + | Address | [address] | | | [place] [address] | + + + | Home Phone | | + + + | Preferred Language | Unknown | + + + | Marital Status | Unknown | + + + | Jehovah'S Witness Affiliation | 1013 | + + + | Race | Unknown | + + + | Ethnic Group | Unknown | + + + Author + + + | Author | [facility] | | | and [place] | + + + | Organization | [facility] | | | and [place] | + + + | Address | Unknown | + + + | Phone | Unavailable | + + + Support + + + + + | Name | Relationship | Address | Phone | + + + + + | Codi Guajardo | ECON | [address] | | | | | [address] [place] | | | | | [address] | | + + + + + Care Team Providers + +------+ + | Care Laborer [place] Name | Role | Phone | + [...] | | disease, | [address] | [place] [address] | | | | | unspecified | [place], | Phone: | | | | | ([facility]) | [place] [address] | [phone] | | | | | Procedures | Phone: | Fax: | | | | | [facility] | [phone] | [phone] | | | | | DOS 08/26/18 | Fax: | | | | | | | [phone] | | +--------+--------+ + + + + Encounter Details +--------+---------+ + + + | Date | Type | Department | Care Team | Description | +--------+---------+ + + + | 08/26/ | Office | [facility] | Cameron Rodriguez, | Chronic obstructive | | 2019 | Visit | PULMONARY [address] | MD [address] | pulmonary disease, | | | | [place], | [place], [place] | unspecified COPD | | | | [place] [address] | [address] | type (HCC) (Primary | | | | [phone] | | Dx); Simple chronic | | [...] images of the lungs. Date Last Reviewed: 03/16/[id number] [employer] [place] [address]. All righ ts reserved. This information is [...] that she was previously evaluated by a harbor police launch commander "many years ago". He told her that she had COPD rather than asthma. The patient's history of asthma/COPD) 1 0 12 years. In general the patient reports episodes of acute bronchitis 2 or so times a year. The freq uency of bronchitis appears to be higher in years that she does not receive a seasonal influ kandiec vaccination. Reviewing records indicate that Ms. Demarco [...] insomnia Anxiety Asthma 2007 Bipolar 1 disorder ([facility]) COPD (chronic obstructive pulmonary disease) ([facility]) 2007 Decreased anal sphincter tone [...] emphysema. Home function tests performed 05/18/15 at [facility] show a forced vital capacity of [...] the distant past been evaluated by a harbor police launch commander who told her that she had COPD as opposed to asthma. The patient has a 46-obpe-ppbv smoking history and cont inues to smoke [...] is potentially of lung cancer screening cand bivalvete. In addition repeat spirometry, lung volumes and [...] esophageal abnormalities to DB Marcano. CC: Son Mayhill, PA documented in this encounter Plan of Treatment +--------+ + + + + | Date | Type | Specialty | Care Team | Description | +--------+ + + + + | 11/24/ | Appointment | Pulmonology | Cameron Rodriguez, | | | 2018 | | | MD Bri ERWIN | | | | | | [place] | | | | | | [address] | | | | | | | [...]
--- OUTSIDE RECORDS SUMMARY | 2018-11-17 10:28 | XMS ---
PreManage Notification: DALY SPICER Security Application Support Events No recent Security Events currently on file CRITERIA MET - Group Notification - [facility] Guidelines - PDMP CARE PROVIDERS MADHAV SILVA Physician Rn Review 08/31/2018-Current PHONE: [phone] MAE BASURTO Primary Care 04/16/2017-Current PHONE: [phone] Giovanni Mendez Current PHONE: Unknown Jamaal Zambrano Current Orthopedic Surgery \T\ Fracture Clinic PHONE: Unknown Guidelines Source: [facility] Guidelines Date: 05/21/2017 Care Coordination: PATIENT IS IN SERVICES OF [facility] [phone] FOR DEPRESSIVE DISORDER. PATIENT HAS HAD MANY LAW ENFORCEMENT CONTACTS. PATIENT HAS HISTORY OF ETOH AND METHAMPHETAMINE ABUSE. Care History Substance Use/Overdose 08/25/2017 [facility] Care Recommendation: - Patient is currently being case managed by [facility] . Please contact Alessandra Cannon at [phone] during business hours if patient shows up [...] ED please contact Community Health WorkerTessie at [phone]. These are guidelines and the provider should exercise clinical judgment when providing care. Social 05/20/2017 [facility] PATIENT HAS PENDING SSI BENEFITS THROUGH [employer]. E.D. VISIT COUNT (12 MO.) 2 [facility] H. TOTAL 2 NOTE: Visits indicate total known visits. ED/UCC VISIT TRACKING (12 MO.) 11/17/2018 10:25 [facility] [place] TYPE: Emergency COMPLAINT: - DIZZY/ALT LOC 08/29/2018 10:54 [facility] [place] TYPE: Emergency COMPLAINT: - FALL DIAGNOSES: - Pain in left knee INPATIENT VISIT TRACKING (12 MO.) No inpatient visits to display in this time frame [email or web address]
== END 2018-11-17 14:20 | disposition home or self-care (01) ==
LOC: ED 10:24
DX: I95.1 Orthostatic hypotension (principal); F17.200 Nicotine dependence, unspecified, uncomplicated; F41.9 Anxiety disorder, unspecified; K21.9 Gastro-esophageal reflux disease without esophagitis; J44.9 Chronic obstructive pulmonary disease, unspecified; Z88.5 Allergy status to narcotic agent; Z90.710 Acquired absence of both cervix and uterus; Z88.6 Allergy status to analgesic agent; Z79.899 Other long term (current) drug therapy
CPT/HCPCS: 36415; 80053; 81001; 85025; 99284

== ENCOUNTER 2024-08-04 10:00 | Day surgery (SDC) | payer OTHER ==
[2024-07-15 11:13] VITALS: BP 114/80
[~2024-08-04] VITALS: Ht 170.2 cm; Wt 63.2 kg
[~2024-08-04 10:00] MED LIST changes: +AMBIEN10 MG PO; +AMITRIPTYLINE H25 MG PO; +BUPRENORPHN-NA1 EACH SL; +BUPROPION XL300 MG PO; +BUSPIRONE HCL30 MG PO; +CEFPODOXIME PR200 MG PO; +CELECOXIB100 MG PO; +CYCLOBENZAPRINE10 MG PO; +DICLOFENAC SOD100 G1 TOP; +EDLUAR10 MG SL; +FLUTICASONE-SA1 EAC4 INH; +HYDROXYZINE PAM50 MG PO; +IBLOOD GLUCOSE TEST STRIP 1 EA TEST VI PRN; +LACTATED RINGER'S 1,000 ML IV SCH; +LAMOTRIGINE200 MG PO; +LASIX20 MG PO; +LEVOTHYROXINE100 MCG PO; +LIDOCAINE HCL 1% 5 ML SDV INJ ONE; +LURASIDONE HCL120 MG PO; +MIRTAZAPINE45 MG PO; +MUCINEX600 MG PO; +ONDANSETRON ODT8 MG PO; +PANTOPRAZOLE SO40 MG PO; +PERPHENAZINE8 MG PO; +TROSPIUM CHLORI20 MG PO; +VITAMIN B12-FO1 EACH PO; +ZYRTEC10 MG PO
[2024-08-04 10:34] LABS: BASOPHILS 0.8 % (0-2); BASOPHILS, ABSOLUTE 0.1 %; EOSINOPHILS 1.9 % (0-6); EOSINOPHILS, ABSOLUTE 0.2; HEMATOCRIT 42.1 % (35.0-50.0); HEMOGLOBIN 14.9 g/dL (12.0-18.0); LYMPHOCYTES 29.3 % (24-44); LYMPHOCYTES, ABSOLUTE 2.7; MCH 35.4 (27-36); MCHC 35.4 g/dl (30-36); MONOCYTES 7.7 % (0-12); MONOCYTES, ABSOLUTE 0.7; NEUTROPHILS 60.3 % (39-80); NEUTROPHILS, ABSOLUTE 5.6; PLATELET COUNT 341 K/uL (140-440); RBC 4.21 M/ul (4.3-5.7); RDW 14.3 (10.5-15.0)
[2024-08-04] MEDS ORDERED: OXYBUTYNIN CHLO10 MG PO (10:40)
[2024-08-04 10:42] VITALS: BP 132/91
[2024-08-04] MEDS ORDERED: LIDOCAINE HCL 2% 5 ML SDV ONE (11:49)
[2024-08-04] MEDS ORDERED: propofoL 200 MG/20 ML VIAL ONE (11:49)
[2024-08-04] MEDS ORDERED: ondansetron HCL 4 MG/2 ML VIAL IV ONE (12:30)
--- NOTE | 2024-08-04 12:30 | NUR ---
08/04/24 Gurdeep0 Jaja Thomas 1224-PATIENT ARRIVED TO PACU ON RA DROWSY LAYING PRONE. PATIENT REPOSITIONED SELF TO LEFT SIDE. RA 96% RR EVEN 2 BANDAIDS TO LOWER BACK CDI. IVF INFUSING. SR. PATIENT REPORTS "NAUSEA TAKES ZOFRAN TWICE/DAY AT HOME" NEW ORDER RECEIVED FOR 4MG ZOFRAN FROM [facility].
[2024-08-04 13:05] VITALS: BP 133/90
--- NOTE | 2024-08-06 17:06 | PATH ---
[facility] [address] [facility] [address] [place], [place] [address] Signed SPECIMEN(S): A BONE MARROW - CORE SPECIMEN(S): B BONE MARROW - ASPIRATION SPECIMEN(S): C FLOW CYTOMETRY, BM EDTA CLINICAL HISTORY: Chronic leukocytosis, erythrocytosis and thrombocytosis. Evaluate MPN. DIAGNOSIS SUMMARY: Peripheral blood - Borderline macrocytic RBC indices otherwise unremarkable by CBC indices and morphology. - No circulating blasts are identified. Bone marrow biopsy and aspiration: - Normocellular marrow, 50%, with less than 1% blasts. - Trilineage hematopoiesis with no significant dyspoiesis. - No malignancy or myeloproliferative neoplasm identified by morphology, immunohistochemistry stain, or flow cytometry. - Myeloproliferative mutation studies are pending. - No reticulin fibrosis noted (MF-0). - See diagnostic comment. DIAGNOSTIC COMMENT: The bone marrow is essentially unremarkable. No malignancy or myeloproliferative neoplasm (MPN) are noted. Pending studies to help exclude MPN include chromosome analysis and mutation studies for JAK2 V617F, exon 12-13, MPL, and CALR. These results will be reported by addendum. The etiology for the macrocytic RBC indices is unclear. No significant myelodysplasia is noted. Evaluation for nutritional deficiencies, drug effect, thyroid or liver disorders, and autoimmune disorders is suggested. HISTORICAL SUMMARY: 49 yo female with a clinical history of unexplained leukocytosis, erythrocytosis, and thrombocytosis. The bone marrow exam is performed to evaluate for possible myeloproliferative neoplasm. PERIPHERAL BLOOD: HEMOGRAM (08/04/2024): WBC 9.4 K/ul, RBC 4.21 M/ul, HGB 14.9 g/dl, HCT 42.1%, MCV 100.0 fl, MCH 35.4 pg, MCHC 35.4 g/dl, RDW 14.3%, PLT 341 K/ul, MPV 6.7 fl. AUTOMATED DIFFERENTIAL COUNT: Neutrophils 60.3%, lymphocytes 29.3%, monocytes PATIENT NAME: DALY SPICER PATHOLOGY DATE OF : 71 REPORT #: [id number] PHYSICIAN: SURAJ PATHOLOGY PCP: GUNJAN HOWARD PA-C REPORT IS CONFIDENTIAL AND NOT TO BE RELEASED WITHOUT AUTHORIZATION [facility] [address] [place], [place] [address] Signed 7.7%, eosinophils 1.9%, basophils 0.8%. The red blood cells are borderline macrocytic and normochromic with minimal aniso-poikilocytosis. The neutrophils are unremarkable. Lymphocytes are composed of small mature appearing forms. Platelets appear normal in number and morphology with no platelet clumping or RBC microangiopathic effect identified. No blasts are identified. BONE MARROW: ASPIRATE SMEARS/TOUCH IMPRINT: The aspirate smears are adequate for evaluation. Scattered erythroid precursors show adequate maturation with essentially normal morphology. The myeloid precursors show full maturation with unremarkable morphology. There is no increase in blasts. Megakaryocytes are identified with a normal morphology. BONE MARROW DIFFERENTIAL COUNT (300 cells): Blasts less than 1%. promyelocytes less than 1%, myelocytes 4%, metamyelocytes/bands/segs 49%, erythroid precursors 23%, lymphocytes 16%, monocytes 4%, eosinophils 3%, plasma cells 1%. M:E ratio: 2.4:1 BONE MARROW CORE BIOPSY/ASPIRATE CLOT/CELL BLOCK: The aspirate clot section (clot section is superior) and the core biopsy are adequate for evaluation. The core biopsy demonstrates unremarkable trabecular bone. The cellularity is normal for age, estimated at 50%. The erythroid precursors are within normal limits with essentially unremarkable maturation. The myeloid precursors are unremarkable with no significant dyspoiesis. Blasts are not increased. Megakaryocytes appear normal in number and in morphology. No granulomas, atypical lymphoid aggregates or foreign malignant cells are detected. SPECIAL STAINS (with adequate controls): - iron (aspirate smear): Mildly decreased marrow iron stores by Prussian Blue staining. - iron (cell block): Negative for iron by Prussian Blue stain. - reticulin (block A1): No reticulin fibrosis. - PAS (block B1): Normal number and morphology of megakaryocytes. IMMUNOHISTOCHEMISTRY STAINS (performed on block A1 with adequate controls). - CD71: 30% FLOW CYTOMETRY: Bone marrow aspiration, flow cytometry: - No diagnostic abnormal populations are identified by flow cytometry. - See comment. COMMENT: PATIENT NAME: DALY SPICER PATHOLOGY DATE OF : 71 REPORT #: [id number] PHYSICIAN: SURAJ PATHOLOGY PCP: GUNJAN HOWARD PA-C REPORT IS CONFIDENTIAL AND NOT TO BE RELEASED WITHOUT AUTHORIZATION [address] [address] Signed While no diagnostic hematopoietic abnormality is detected in this study, correlation with clinical, morphologic, and genetic findings is recommended for full interpretation and to assess for disease processes not fully examined by flow cytometry analysis, including myelodysplastic syndrome or myeloproliferative neoplasm. FLOW CYTOMETRY ANALYSIS: FLOW DIFFERENTIAL (% Total CD45 vs. SSC gating): Myeloid 72%; Lymphoid 11%; Monocyte 3%; Dim CD45/Blast: 1.2%. Cell Count: 4.3 x 10*3/uL. POPULATION ANALYSIS: BLASTS: Analysis of the dim CD45 gate demonstrates 1.2% myeloblasts by CD34/CD117 and 0.3% hematogones. LYMPHOID CELLS: The lymphocyte gate comprises 11% of total events and includes 81% T-cells with a CD4:CD8 ratio of 2.0:1 and normal garcia T-cell antigen expression. 14% of lymphocytes are polyclonal B-cells with a kappa:lambda ratio of 1.8:1. The remainders are NK-cells. MYELOID CELLS: The myeloid population comprises 72% of the total events. No aberrant immunophenotypic expression is detected. MONOCYTES: The monocyte population comprises 3% of the total events. Monocytes are not increased. No aberrant immunophenotypic expression is detected. PLASMA CELLS: 0.4% plasma cells are detected in the screening gate neg-dimCD45/CD38. Plasma cells are CD45 dim and positive for CD19. ANTIBODIES USED: KAPPA, LAMBDA, CD20, CD10, CD19, CD23, CD38, CD16, CD56, CD8, CD5, CD2, CD4, CD7, CD3, CD14, CD33, CD13, HLADR, CD34, CD117, CD15, CD45: TOTAL ANTIBODIES USED: 23. SHR FINAL DIAGNOSIS PERFORMED BY: Charles Lomas MD, Aug 05 2024 12:20PM CYTOGENETICS: Chromosome analysis is pending MOLECULAR / PCR: Mutation studies for JAK2 V617F, JAK2 exon 12-13, CALR, and MPL are pending. GROSS DESCRIPTION: Two specimens are received in two containers A. The specimen, labeled and designated "[place], bone marrow core biopsy," is received in formalin and consists of one clark cylindrical core of bone that is 1.4 cm long and 0.2 cm in diameter. After decalcification in Immunocal the specimen is entirely submitted in (A1). PATIENT NAME: DALY SPICER PATHOLOGY DATE OF : 71 REPORT #: [id number] PHYSICIAN: SURAJ PATHOLOGY PCP: GUNJAN HOWARD PA-C REPORT IS CONFIDENTIAL AND NOT TO BE RELEASED WITHOUT AUTHORIZATION [facility] [address] [place], [place] [address] Signed B. The specimen, labeled and designated "[place], bone marrow clot," is received in formalin and consists of a 1.8 x 1.2 x 0.6 cm aggregate of red brown clot material. Entirely submitted in (B1). JS (under the direct supervision of a pathologist) The Gross Description was prepared using a voice recognition system. The report was reviewed for accuracy; however, sound-alike word errors, addition and/or deletions may occur. If there is any question about this report, please contact Client Services. ADDITIONAL NOTES: Immunohistochemical and/or in situ hybridization studies if performed in this case included appropriate positive controls that reacted as expected. This test was developed and its performance characteristics determined by [facility]. It has not been cleared or approved by the U.S. Food and Drug Administration. The FDA has determined that such clearance or approval is not necessary. This test is used for clinical purposes. It should not be regarded as investigational or for research. [facility] is certified under the Clinical Laboratory Improvement Amendments of 1988 (CLIA) as qualified to perform high complexity clinical laboratory testing. In this case, certain antibodies were performed by both immunohistochemistry and flow cytometry analysis because flow cytometry analysis did not fully explain all the light microscopic findings. Immunohistochemistry aided in the analysis. Both methods are deemed medically necessary in this case. This test was developed and its performance characteristics determined by [facility]. It has not been cleared or approved by the US Food and Drug Administration. The FDA does not require this test to go through premarket FDA review. This test is used for clinical purposes. It should not be regarded as investigational or for research. This laboratory is certified under the Clinical Laboratory Improvement Amendments (CLIA) as qualified to perform high complexity clinical laboratory testing. PERFORMING LABORATORY: The technical preparation was performed by [facility], [facility] [place] [address] (CLIA#: [id number]). Professional interpretation was performed by [facility], [address] [place] [id number] (CLIA#: [id number]). PATIENT NAME: ADLY SPICER PATHOLOGY DATE OF : 71 REPORT #: [id number] PHYSICIAN: SURAJ [place] PCP: GUNJAN HOWARD PA-C REPORT IS CONFIDENTIAL AND NOT TO BE RELEASED WITHOUT AUTHORIZATION [address] [address] Signed Technical component was performed by [facility], [address] [place] [id number] (CLIA# [id number]). Professional interpretation was performed by [facility], [address] [place] [id number] (CLIA#: [id number]). IMAGES: [id number]: [id number]: [id number] Diagnostician: Charles Lomas MD Pathologist Electronically Signed 08/06/2024 Copies: ~ PATIENT NAME: DALY SPICER PATHOLOGY DATE OF : 71 REPORT #: [id number] PHYSICIAN: SURAJ PATHOLOGY PCP: GUNJAN HOWARD PA-C REPORT IS CONFIDENTIAL AND NOT TO BE RELEASED WITHOUT AUTHORIZATION
== END 2024-08-04 13:10 | disposition home or self-care (01) ==
LOC: DS 10:00 → OPS 10:00
PROVIDERS: ATTEND Specialist
PROC: 079T3ZX Drainage of Bone Marrow, Percutaneous Approach, Diagnostic (ICD-10-PCS; principal; 2024-08-04 12:00)
DX: D72.828 Other elevated white blood cell count (principal); D75.1 Secondary polycythemia; D75.839 Thrombocytosis, unspecified; J44.9 Chronic obstructive pulmonary disease, unspecified; E03.9 Hypothyroidism, unspecified; F43.10 Post-traumatic stress disorder, unspecified; K21.9 Gastro-esophageal reflux disease without esophagitis; F17.210 Nicotine dependence, cigarettes, uncomplicated; Z79.899 Other long term (current) drug therapy; Z88.5 Allergy status to narcotic agent; Z88.8 Allergy status to other drugs, medicaments and biological substances; Z90.49 Acquired absence of other specified parts of digestive tract; Z90.710 Acquired absence of both cervix and uterus
CPT/HCPCS: 01112; 36415; 85025; J2003; J2405; J2704; J7121

== ENCOUNTER 2024-09-20 05:55 | Day surgery (SDC) | payer OTHER ==
[2024-06-15 16:28] VITALS: BP 119/80
[2024-09-09 14:35] VITALS: BP 114/75; BP 119/80
[~2024-09-20] VITALS: Ht 170.2 cm; Wt 67.0 kg
[~2024-09-20 05:55] MED LIST changes: -IBLOOD GLUCOSE TEST STRIP 1 EA TEST VI PRN; -LIDOCAINE HCL 1% 5 ML SDV INJ ONE; +OXYBUTYNIN CHLO10 MG PO
[2024-09-20 06:12] VITALS: BP 159/97
[2024-09-20] MEDS ORDERED: Ropivacaine HCl 20 MG/10 ML AMP ONE (06:15)
[2024-09-20] MEDS ORDERED: SODIUM CHLORIDE 0.9% 500 ML IV ONE (06:15)
[2024-09-20] MEDS ORDERED: dexmedeTOMIDine HCl 200 MCG/2 ML VIAL ONE (06:29)
[2024-09-20] MEDS ORDERED: DEXAMETHASONE SOD PHOS 4 MG/ML VIAL ONE ×3 (06:29→11:00)
[2024-09-20] MEDS ORDERED: LIDOCAINE HCL 2% 5 ML SDV ONE ×2 (06:29→11:03)
[2024-09-20] MEDS ORDERED: MIDAZOLAM HCL 2 MG/2 ML VIAL ONE ×2 (06:29→11:03)
[2024-09-20] MEDS ORDERED: propofoL 200 MG/20 ML VIAL ONE (06:29)
[2024-09-20] MEDS ORDERED: Ropivacaine HCl 0.5% 30 ML VIAL ONE ×2 (06:29→11:00)
[2024-09-20] MEDS ORDERED: SODIUM CHLORIDE 0.9% 20 ML IV ONE (06:30)
[2024-09-20] MEDS ORDERED: OXYCODONE HCL 5 MG TAB PO SCH ×2 (07:00→14:00)
[2024-09-20] MEDS ORDERED: INTRA-ARTICULAR ANALGESIC INJECTION XX SCH (07:00)
[2024-09-20] MEDS ORDERED: ROPIVACAINE IN 0.9% SOD CHL/PF 545 ML ELS.PMP.HR IRRIGATION SCH (07:00)
[2024-09-20] MEDS ORDERED: GABAPENTIN 600 MG TAB PO SCH (07:00)
[2024-09-20] MEDS ORDERED: CEFAZOLIN SODIUM 2 GM/20 ML SYR IV SCH ×2 (07:00→15:00)
[2024-09-20] MEDS ORDERED: TRANEXAMIC ACID IN NACL,ISO-OS 1,000 MG/100 ML PIGGYBACK IV SCH ×2 (07:00→10:00)
[2024-09-20] MEDS ORDERED: LIDOCAINE HCL 1% 5 ML SDV INJ ONE (07:00)
[2024-09-20] MEDS ORDERED: PANTOPRAZOLE SODIUM 40 MG TABEC PO SCH (07:00)
[2024-09-20] MEDS ORDERED: ondansetron HCL 4 MG TAB PO SCH (07:00)
[2024-09-20] MEDS ORDERED: IBLOOD GLUCOSE TEST STRIP 1 EA TEST VI PRN ×2 (07:00→08:00)
[2024-09-20] MEDS ORDERED: KETOROLAC TROMETHAMINE 30 MG/ML VIAL IV PRN (07:00)
--- NOTE | 2024-09-20 07:16 | NUR ---
PT NOT AVAILABLE FOR VISIT. PROVIDED PRAYER.
--- NOTE | 2024-09-20 07:19 | NUR ---
VISITED WITH BEVELER IN ROOM. NO IMMEDIATE NEEDS. RECYCLING TECH PROVIDED SUPPORTIVE PRESENCE, HOSPITALITY, PRAYER. BEVELER EXPRESSED GRATITUDE.
[2024-09-20] MEDS ORDERED: ePHEDrine sulfate 50 MG/ML AMP ONE (07:33)
[2024-09-20] MEDS ORDERED: ondansetron HCL 4 MG/2 ML VIAL ONE (07:35)
[2024-09-20] MEDS ORDERED: KETOROLAC TROMETHAMINE 30 MG/ML VIAL ONE (07:35)
[2024-09-20] MEDS ORDERED: ACETAMINOPHEN 1,000 MG/100 ML VIAL ONE (07:35)
[2024-09-20] MEDS ORDERED: PROCHLORPERAZINE EDISYLATE 10 MG/2 ML VIAL IV PRN (08:00)
[2024-09-20] MEDS ORDERED: fentaNYL citrate 50 MCG/ML SDV IV PRN (08:00)
[2024-09-20] MEDS ORDERED: HYDROmorphone HCL 1 MG/ML SYR IV PRN (08:00)
[2024-09-20] MEDS ORDERED: ondansetron HCL 4 MG/2 ML VIAL IV PRN (08:00)
[2024-09-20] MEDS ORDERED: droPERidol 5 MG/2 ML VIAL IV PRN (08:00)
[2024-09-20] MEDS ORDERED: NALOXONE HCL 0.4 MG SYR IV PRN (08:00)
[2024-09-20] MEDS ORDERED: OXYCODONE HCL5 MG PO (08:25)
[2024-09-20] MEDS ORDERED: CEFUROXIME250 MG PO (08:25)
[2024-09-20] MEDS ORDERED: GABAPENTIN300 MG PO (08:25)
[2024-09-20] MEDS ORDERED: SENNA LAX8.6 MG PO (08:25)
--- NOTE | 2024-09-20 08:58 | NUR ---
09/20/24 0858 Brenda Logan 0836-PT ARRIVES TO PACU VIA STRETCHER, PT RESTING SEMI FOWLERS, A+OX4, PT DENIES PAIN OR NAUSEA. VSS ON 6L VIA MASK. 0845-PT TITRATED TO RA, VSS. 0847-PT O2 SATS DECREASED TO 87% WHILE AWAKE, PT INSTRUCTED TO COUGH AND DEEP BREATH, SATS ONLY IMPROVED TO 89%, PT PLACED ON 2L VIA NC SATS IMPROVED TO 98%. 0848-INFANT BABYSITTER AT BEDSIDE FOR POST OP RT KNEE X-RAY, PT SITTING UP IN BED SIPPING ON WATER.
[2024-09-20] MEDS ORDERED: ASPIRIN 325 MG TAB PO SCH (09:00)
[2024-09-20 09:12] VITALS: BP 125/79
[2024-09-20] MEDS ORDERED: OXYCODONE HCL 5 MG TAB PO PRN (09:45)
--- NOTE | 2024-09-20 09:58 | NUR ---
0910-PT BACK TO ROOM 6 FROM PACU ON 2L VIA NC. RECEIVED REPORT FROM WILI FAIRCHILD. PT IS AWAKE. RESP EVEN AND UNLABORED. DENIES PAIN IN KNEE BUT STATES HAVING LOWER BACK PAIN. NAUSEA IS IMPROVING. PT TAKING SIPS OF ICE WATER. DECLINES SNACK AT THIS TIME. PARTNER AT BEDSIDE. NO OTHER NEEDS AT THIS TIME. CALL LIGHT WITHIN REACH.
[2024-09-20 10:08] VITALS: BP 145/87
--- NOTE | 2024-09-20 10:16 | NUR ---
1004-PT STATES PAIN STILL AT A 9/10. PHONE CALL TO OR 2. BRUNA SHEIKH WILL SEE PT WHEN CURRENT CASE IS COMPLETE. UPDATE GIVEN TO PT.
--- NOTE | 2024-09-20 10:17 | NUR ---
1010-PT LAYING IN BED. RESP EVEN AND UNLABORED. RATES PAIN /. CRYO CUFF IN PLACE AND RUNNING. ON-Q PUMP SET AT 4. PARTNER AT BEDSIDE. NO OTHER NEEDS AT THIS TIME. CALL LIGHT WITHIN REACH. 1018-AV ACE IN ROOM WITH PT. BOLUS OF PAIN MEDICATION GIVEN THROUGH ON-Q PUMP. 1023-TITRATED O2 OFF. 02 SATS AT 98% ON RA. CALL LIGTH WITHIN REACH.
--- NOTE | 2024-09-20 10:40 | NUR ---
1031-PT RATES PAIN 6/10 AND THIS IS TOLERABLE AT THE MOMENT. CALL LIGHT WITHIN REACH.
[2024-09-20 11:17] VITALS: BP 133/88
--- NOTE | 2024-09-20 11:31 | NUR ---
1100-PT STATES PAIN IS A 6/. FRANK CONCRETE BUCKET UNLOADER IN ROOM WITH PT. PT WOULD LIKE TO TRY A RESCUE BLOCK. 1105-FRANK CONCRETE BUCKET UNLOADER IN ROOM FOR RESCUE BLOCK.
--- NOTE | 2024-09-20 12:03 | NUR ---
1118-PT RATES PAIN 5/10 AND THIS IS TOLERABLE FOR HER. RESP EVEN AND UNLABORED. CRYO CUFF IN PLACE AND RUNNING. ON-Q PUMP SET AT 4. 1125-PT UP TO BEDSIDE COMMODE. PT VOIDS 400ML. 1130-PT BACK TO BED. NO OTHER NEEDS AT THIS TIME. CALL LIGHT WITHIN REACH.
[2024-09-20] MEDS ORDERED: OXYCODONE HCL 5 MG TAB PO ONE (12:30)
[2024-09-20 12:35] VITALS: BP 122/94
--- NOTE | 2024-09-20 12:42 | NUR ---
1225-PT RATES PAIN A 6/10. VO PER AV ACE. FOR OXYCODONE 5MG AND INCREASE ON-Q PUMP TO 6. PT WILL NEED AN APPT ON 09/22/24 AT 10AM IN OFFICE. 1233-PAIN MEDICATION GIVEN PER EMAR. 1235-PT LAYING IN BED. RESP EVEN AND UNLABORED. RATES PAIN 6/10. DENIES NAUSEA. ON-Q PUMP INCREASED TO 6. CRYO CUFF IN PLACE AND RUNNING. LUNCH ARRIVED. PHYSICAL THERAPY IN ROOM. CALL LIGHT WITHIN REACH.
--- NOTE | 2024-09-20 13:30 | NUR ---
1315-PT BACK TO ROOM FROM PHYSICAL THERAPY. PT EATING LUNCH, 1330-PT RATES PAIN 6/10. STATES THIS IS TOLERABLE AND SHE WOULD LIKE TO GO HOME. PT TO GET DRESSED. PARTNER IN ROOM TO HELP PT.
[2024-09-20] MEDS ORDERED: GABAPENTIN 300 MG CAP PO SCH ×2 (15:00)
--- NOTE | 2024-09-20 15:05 | NUR ---
1345-WENT OVER DISCHARGE INSTRUCTIONS WITH PT AND HER PARTNER. WENT OVER POSTOP MEDICATIONS. ALL QUESTIONS ANSWERED. WILL CALL DR. EATON OFFICE REGARDING A BLOOD THINNER. 1356-TALKED WITH [facility]. VO FOR PT TO TAKE ASA 325 BID X'S A MONTH. 1357-DISSCUSED NEW MEDICATION WITH PT. VERBALIZED UNDERSTANDING. 1400-PT AMBULATES WITH WALKER TO WHEELCHAIR AND RIDE PROVIDED TO FRONT OF HOSPITAL WHERE WAS WAITING WITH THE CAR.
[2024-09-20] MEDS ORDERED: SEVOFLURANE 250 ML BTL INH ONE (16:21)
[2024-09-20] MEDS ORDERED: SENNOSIDES 1 TAB PO SCH (21:00)
[2024-09-21] MEDS ORDERED: cefuroxime axetiL 250 MG TAB PO SCH (09:00)
--- NOTE | 2024-09-21 16:39 | OR ---
[facility] [address] [facility] [place], [place] [address] Signed DATE OF OPERATION: 09/20/2024 SURGEON: Rhina Patino MD PREOPERATIVE DIAGNOSIS: Severe degenerative joint disease, right knee. POSTOPERATIVE DIAGNOSIS: Severe degenerative joint disease, right knee. PROCEDURE PERFORMED: Right total knee arthroplasty with Catarino. COLOR MAKER DYER: Malena Tolliver PA-C. Malena was present and critical for all portions of procedure. ANESTHESIA: Spinal. BLOOD LOSS: 200 mL. TOURNIQUET TIME: Zero. IMPLANTS: Talisha Triathlon size , 10 mm polyethylene, 32 mm patella. BRIEF HISTORY: Daly is a 49-year-old female, who has significant worsening of her arthritis. Nonoperative treatment was unsuccessful and she wished to proceed with operative treatment. Risks, benefits, and alternatives were discussed and she understood and wished to proceed. DESCRIPTION OF OPERATION: Once consent was obtained, she was taken to the operating room. After adequate anesthesia, she was placed on the operating room table. All downside pressure points were well padded. The right knee was prepped and draped in the standard sterile fashion. The knee was approached through a standard anterior longitudinal incision and Electronically Signed By: RHINA PATINO MD 09/21/24 1639 PATIENT NAME: DALY SPICER OPERATIVE REPORT DATE OF : 71 REPORT #: [id number] PHYSICIAN: RHINA PATINO MD PCP: GUNJAN HOWARD PA-C REPORT IS CONFIDENTIAL AND NOT TO BE RELEASED WITHOUT AUTHORIZATION [facility] [address] [place], [place] [address] Signed taken through the skin and subcutaneous tissue. Skin flaps were developed medially and laterally. A midvastus arthrotomy was performed and the infrapatellar fat pad was excised. The MCL was elevated as a sleeve around the posteromedial corner. Anterior horn of the lateral meniscus was transected. The ACL was transected. PCL was found to be intact and little bit tight. Medial meniscus was absent anteriorly. The navigation computer arrays were then placed in the distal femur and proximal tibia. The leg was then registered with computer, followed by the fine anatomic points of the knee. Varus and valgus testing was undertaken and slight adjustments were made to the prosthesis plan on the computer. Once this was completed, the robot was brought in. The four straight cuts and two angle cuts were made with care taken to protect the patellar tendon and MCL. Bony remnants removed as were any remaining osteophytes. The posterior osteophytes removed off the femur, but no release was performed. The trials were then positioned. The knee was taken through range of motion from 0 to 130 degrees with excellent stability throughout. The patella tracked nicely. The patella was then cut sized and drilled for a 32 mm patella. The distal femoral drill holes were completed. The proximal tibia was finished using the keel punch followed by the drill. Once this was completed, the implants were obtained. The tibia was impacted into position until it was seated flushed and the polyethylene was snapped into position. The femur was then impacted until it was seated flushed. The knee was then extended and loaded. The patella was then clamped until it was seated flushed on the patella. Again, range of motion was found to be good. Patella tracked nicely. The wound was then copiously irrigated with one bottle of Surgiphor followed by normal saline. The periarticular soft tissues were injected with 75 mL 0.25% Marcaine with epinephrine. The On-Q pain pump was percutaneously placed into the adductor canal from the suprapatellar pouch. The arthrotomy was then closed using a combination of #2 FiberWire and #2 Stratafix, subcutaneous tissue with 0 Stratafix and the skin with 3-0 Stratafix. Skin was sealed with LiquiBand and Steri-Strips. The wound was dressed with Acticoat-7 dressing, ABD, and Trung wrap. The patient tolerated the procedure well. All sponge, needle, and instrument counts were correct. Rhina Patino MD BA/MANINDERL /[id number] Electronically Signed By: RHINA PATINO MD 09/21/24 1639 PATIENT NAME: DALY SPICER OPERATIVE REPORT DATE OF : [birth year] REPORT #: [id number] PHYSICIAN: RHINA PATINO MD PCP: GUNJAN HOWARD PA-C REPORT IS CONFIDENTIAL AND NOT TO BE RELEASED WITHOUT AUTHORIZATION [address] [address] Signed Copies: ~ Electronically Signed By: RHINA PATINO MD 09/21/24 1639 PATIENT NAME: DALY SPICER OPERATIVE REPORT DATE OF : 71 REPORT #: [id number] PHYSICIAN: RHINA PATINO MD PCP: GUNJAN HOWARD PA-C REPORT IS CONFIDENTIAL AND NOT TO BE RELEASED WITHOUT AUTHORIZATION
== END 2024-09-20 14:00 | disposition home or self-care (01) ==
LOC: DS 05:55
PROVIDERS: ATTEND Specialist
PROC: 0SRC0JZ Replacement of Right Knee Joint with Synthetic Substitute, Open Approach (ICD-10-PCS; principal; 2024-09-20 07:00)
DX: M17.11 Unilateral primary osteoarthritis, right knee (principal)
CPT/HCPCS: 01400; 64447; 64450; 73560; 76942; 97161; 97530; A9270; C1776; J0131; J0690; J1100; J1885; J2003; J2250; J2405; J2704; J2795; J7040; J7121; J7999

== ENCOUNTER 2025-01-28 06:50 | Day surgery (SDC) | payer OTHER ==
[~2025-01-28] VITALS: Ht 170.2 cm; Wt 65.0 kg
[~2025-01-28 06:50] MED LIST changes: +CEFUROXIME250 MG PO; +GABAPENTIN300 MG PO; +KLOR-CON M2020 MEQ PO; +MAGNESIUM500 MG PO; +PROBIOTIC250 MG PO; +SENNA LAX8.6 MG PO; +VITAMIN B121000 MCG PO; +VITAMIN B650 MG PO; +VITAMIN C500 M4 PO
[2025-01-28 07:00] VITALS: BP 121/88
[2025-01-28] MEDS ORDERED: LIDOCAINE HCL 1% 5 ML SDV INJ ONE (07:00)
[2025-01-28] MEDS ORDERED: IBLOOD GLUCOSE TEST STRIP 1 EA TEST VI PRN (07:00)
[2025-01-28] MEDS ORDERED: CEFAZOLIN SODIUM 2 GM/20 ML SYR IV SCH (07:24)
[2025-01-28] MEDS ORDERED: LIDOCAINE HCL 2% 5 ML SDV ONE (07:47)
[2025-01-28 10:56] VITALS: BP 140/87
--- NOTE | 2025-01-28 13:39 | NUR ---
01/28/25 Zofia Davey Demetrius 0821- PT PRESENTS TO PACU, SEMI RIVERA POSITION, DROWSY. DENIES PAIN BUT C/O NAUSEA. O2 AT 4L PER NC. BREATHING EVEN AND NON LABORED. ABD SOFT, NON DISTENDED. PT MOVING AND UNABLE TO OBTAIN ACCURATE BP. ALL OTHER MONITORS IN PLACE. 0825- BP OBTAINED, V/S WNL. PT MEDICATED FOR NAUSEA PER BRUNA SHEIKH. 0827- O2 TURNED DOWN TO 2L PER NC AT THIS TIME. PT REPORTS NAUSEA IMPROVING. 0835- PT MOVED TO ROOM AIR, SITTING UP CONVERSING WITH STAFF. NO COMPLAINTS. ASKING WHEN SHE CAN GO HOME AND REPORTS SHE IS READY. 0838- APPLE JUICE PROVIDED TO PT. 0843- PT UP TO SIDE OF BED, NO DIZZINESS OR NAUSEA. SALINE LOCK REMOVED, TIP INTACT, DRESSING APPLIED. 0847- PT AMBULATED TO THE BATHROOM TO GET DRESSED WITH STEADY GAIT. FIANCE SENT TO PULL CAR TO FRONT OF HOSPITAL. 0850- PT TRANSFERRED TO WHEELCHAIR WITH STEADY GAIT, D.C INSTRUCTIONS GIVEN. PT TAKEN OUT TO FAMILY CAR WITH ALL BELONGINGS.
--- NOTE | 2025-01-30 20:46 | OR ---
[facility] [address], [place] [address] Signed DATE OF OPERATION: 01/28/2025 SURGEON: Zachary Mao DO PREOPERATIVE DIAGNOSIS: Epigastric pain with reflux. POSTOPERATIVE DIAGNOSES: 1. Epigastric pain, reflux with bile gastritis. 2. LA grade B esophagitis. 3. Gastric polyp. 4. 2 cm hiatal hernia. PROCEDURES PERFORMED: 1. Esophagogastroduodenoscopy with biopsy of the polyp. 2. Random gastric biopsy as well. ANESTHESIA: IV sedation. ESTIMATED BLOOD LOSS: None. DRAINS: None. COMPLICATIONS: None. DESCRIPTION OF PROCEDURE: The patient was brought to the GI lab, placed in supine position. After induction of IV sedation through preanesthetized oropharynx and a bite block, the Olympus video endoscope was then introduced into the mouth, directed through the mouth and to distal esophagus. Upon encountering the distal esophagus, the LES was noted to be incompetent and LA grade B esophagitis was noted. No evidence of ulcerations. No evidence of Al's. The scope was then put into the stomach and general exploration was carried out. After it was insufflated, a proximal gastric polyp was noted as a fundal polyp. This polyp was biopsied multiple times, passed off the field for pathology review. Random gastric biopsy of the gastric body was performed in the region of some punctate gastritis and passed off the field for pathologic review. The scope Electronically Signed By: ZACHARY MAO DO 01/30/25 2046 PATIENT NAME: DALY SPICER OPERATIVE REPORT DATE OF : 71 REPORT #: [id number] PHYSICIAN: ZACHARY MAO DO PCP: GUNJAN HOWARD PA-C REPORT IS CONFIDENTIAL AND NOT TO BE RELEASED WITHOUT AUTHORIZATION [facility] [address] [place] [id number] Signed was then placed through the pylorus, 1st and second portion of duodenum. No intrinsic or extrinsic masses were noted. No ulcerations were noted. Scope was brought back into the stomach, retroflexed on itself. A 2 cm sliding hiatal hernia was noted, but no evidence of paraesophageal component was noted. The scope was placed in a neutral position. Stomach was decompressed. Scope was withdrawn in its entirety and she tolerated the procedure well Zachary Mao DO RS/MODL /[id number] Copies: ~ Electronically Signed By: ZACHARY MAO DO 01/30/25 2046 PATIENT NAME: DALY SPICER OPERATIVE REPORT DATE OF : 71 REPORT #: [id number] PHYSICIAN: ZACHARY MAO DO PCP: GUNJAN HOWARD PA-C REPORT IS CONFIDENTIAL AND NOT TO BE RELEASED WITHOUT AUTHORIZATION
--- NOTE | 2025-02-02 18:28 | PATH ---
[facility] [address] [place], [place] [address] Signed SPECIMEN(S): A STOMACH POLYP SPECIMEN(S): B STOMACH BIOPSY SPECIMEN SOURCE: A. STOMACH POLYP B. STOMACH BIOPSY CLINICAL HISTORY: Epigastric abdominal pain, acid reflux disease. Henrietta grade B esophagitis. Postop-hiatal hernia, mild gastritis, gastric polyp. A) polyp, B) biopsy FINAL PATHOLOGIC DIAGNOSIS: A. Stomach polyp: - Benign gastric mucosa with slight polypoid features. - Focal mild superficial chronic inflammation, negative for evidence of Helicobacter organisms on routine HE stained sections. B. Stomach biopsy: - Benign gastric mucosa with focal slight chronic inflammation, negative for evidence of Helicobacter organisms on routine HE stained sections. JVR:jc MICROSCOPIC EXAMINATION: Histologic sections of all submitted blocks are examined by light microscopy. These findings, together with the gross examination, support the pathologic diagnosis. A cytokeratin AE1/3 immunostain is performed with appropriate controls on block A1 and is negative for occult carcinoma supporting the diagnosis. JVR:jc GROSS DESCRIPTION: A. The specimen, labeled and designated "[place], stomach polyp," is received in formalin and consists of one clark soft tissue fragment, 0.8 cm. Entirely submitted in (A1). B. The specimen, labeled and designated "[place], stomach biopsy," is received in formalin and consists of one clark soft tissue fragment, 0.4 cm. Entirely submitted in (B1). AB (under the direct supervision of a pathologist) The Gross Description was prepared using a voice recognition system. The report was reviewed for accuracy; however, sound-alike word errors, addition and/or deletions may occur. If there is any PATIENT NAME: DALY SPICER PATHOLOGY DATE OF : 71 REPORT #: [id number] PHYSICIAN: YAN DALLAS PCP: GUNJAN HOWARD PA-C REPORT IS CONFIDENTIAL AND NOT TO BE RELEASED WITHOUT AUTHORIZATION [facility] [address] [place], [place] [address] Signed question about this report, please contact Client Services. ADDITIONAL NOTES: Immunohistochemical and/or in situ hybridization studies were performed on this case with the appropriate positive controls that react as expected. This test was developed and its performance characteristics determined by [facility] [facility]. It has not been cleared or approved by the U.S. Food and Drug Administration. The FDA has determined that such clearance or approval is not necessary. This test is used for clinical purposes. It should not be regarded as investigational or for research. [facility] is certified under the Clinical Laboratory Improvement Amendments of 1988 (CLIA) as qualified to perform high complexity clinical laboratory testing. This assay has not been validated for specimens that have been decalcified. PERFORMING LABORATORY: Technical component was performed by [facility], [address] [place] [id number] (CLIA# [id number]). Professional interpretation was performed by [facility], [address] [place] [phone] (CLIA#: [id number]). Diagnostician: Memo Yanes MD Pathologist Electronically Signed 02/02/2025 Copies: ~ PATIENT NAME: DALY SPICER PATHOLOGY DATE OF : 71 REPORT #: [id number] PHYSICIAN: YAN PATHOLOGY PCP: GUNJAN HOWARD PA-C REPORT IS CONFIDENTIAL AND NOT TO BE RELEASED WITHOUT AUTHORIZATION
== END 2025-01-28 08:50 | disposition home or self-care (01) ==
LOC: OPS 06:50 → DS 06:50 → OPS 07:55
PROVIDERS: ATTEND Surgery
PROC: 0DB68ZX Excision of Stomach, Via Natural or Artificial Opening Endoscopic, Diagnostic (ICD-10-PCS; principal; 2025-01-28 07:55)
DX: K21.00 Gastro-esophageal reflux disease with esophagitis, without bleeding (principal); K31.7 Polyp of stomach and duodenum; K29.60 Other gastritis without bleeding; K44.9 Diaphragmatic hernia without obstruction or gangrene; J44.89 Other specified chronic obstructive pulmonary disease; E03.9 Hypothyroidism, unspecified; E78.5 Hyperlipidemia, unspecified; F17.210 Nicotine dependence, cigarettes, uncomplicated; Z79.51 Long term (current) use of inhaled steroids; Z79.890 Hormone replacement therapy; Z79.899 Other long term (current) drug therapy; Z88.5 Allergy status to narcotic agent; Z91.038 Other insect allergy status; Z90.49 Acquired absence of other specified parts of digestive tract; Z90.710 Acquired absence of both cervix and uterus
CPT/HCPCS: 00813; 88305; 88342; J0690; J2003; J2704; J7121